=== PATIENT | female | born 1975 | race Caucasian/White ===

== ENCOUNTER → 2017-08-30 12:36 | Outpatient (CLI) | payer BC, SELFPAY ==
--- NOTE | 2017-08-30 12:48 | RAD_ITS ---
STUDY: X-RAY CHEST REASON FOR EXAM: Female, 41 years old. Fever, cough and chest pain for 4 days. TECHNIQUE: PA and lateral views of the chest. COMPARISON: Prior comparison studies are not available for review at this time. FINDINGS: The lungs are clear and expanded. There is no demonstrated pleural abnormality. Normal size heart. Normal mediastinum and foreign. Normal visualized pulmonary arteries. Normal visualized aortic arch and descending thoracic aorta. Normal visualized thoracic spine. Normal visualized ribs, clavicles, and shoulders. There is no demonstrated abnormality of the visualized soft tissue structures of the upper abdomen. RAD/Chest PA and Lateral IMPRESSION: Normal x-ray examination of the chest. Electronically Signed: Crow Mcdonald MD at 13:31 EST Tel , Service support ,
== END ==
PROVIDERS: Family Provider Internal Medicine; PCP Internal Medicine; Visit Provider Physician Assistant Surgical
DX: R09.89 Other specified symptoms and signs involving the circulatory and respiratory systems (principal)
CPT/HCPCS: 71046

== ENCOUNTER → 2017-09-09 11:53 | Outpatient (CLI) | payer BC, SELFPAY ==
--- NOTE | 2017-09-09 11:58 | HPBI_ITS ---
MAMMOGRAPHY - BILATERAL SCREENING REASON FOR EXAM: Female, 41 years old. Routine annual screening examination. Occasional left breast tenderness. PERTINENT HISTORY: Sister with breast cancer. Grandmother with breast cancer TECHNIQUE: Digital bilateral breast zhang (3D mammographic acquisition) in the CC and MLO projections. 2-D mediolateral oblique (MLO) and craniocaudad (CC) views of both breasts were obtained. CAD: Full Field Digital Mammography with Computer Added Detection was performed. COMPARISON: Comparison is made with prior abdomen examination dated August 22, 2016. FINDINGS: Breast Composition: The breasts are heterogeneously dense, which may obscure small masses. There are no dominant masses or suspicious calcifications. No other significant abnormalities are identified. HPBI/SCREENING MAMM (CAD), BILAT IMPRESSION: Stable bilateral screening mammogram. Yearly follow-up mammogram recommended. (A) ASSESSMENT CATEGORY: BIRADS Category 1: Negative. A letter regarding these results will be sent to the patient by the facility within 30 days. Approximately 10% of breast cancers are not detected by mammography. A normal mammogram should not delay biopsy of a clinically suspicious abnormality. [id number] Electronically Signed: Guerrero Hernandez MD at 12:36 EST Tel [phone], Service support ,
== END ==
PROVIDERS: Family Provider Internal Medicine; PCP Internal Medicine; Visit Provider Nurse Practitioner Women's Health
DX: Z12.31 Encounter for screening mammogram for malignant neoplasm of breast (principal)
CPT/HCPCS: 77063; 77067

== ENCOUNTER → 2018-05-11 15:40 | Outpatient (CLI) | payer OTHER, SELFPAY ==
[2018-05-11 17:48] LABS: HIV - WCH Non-Reactive (Nonreactive)
[2018-05-11 21:56] LABS: Chlamydia Trachomatis by PCR Negative (Negative); Neisserai gonorrhoeae by PCR Negative (Negative); Probe Check PASS; Sample Adequacy Control PASS; Specimen Processing Control PASS
[2018-05-14 17:34] LABS: HCV Quant. RNA PCR HCV Not Detected IU/mL (.)
[2018-05-15 04:13] LABS: Rapid Plasmin Reagin (RPR) NONREACTIVE (NONREACTIVE)
[2018-05-15 15:18] LABS: HSV 2 IgG 0.93 index (0.00-0.90)
[2018-05-15 16:32] LABS: HPV APTIMA, High Risk Negative (Negative)
== END ==
LOC: LAB 05-12 08:26 → LABSPEC 05-12 08:28
PROVIDERS: Family Provider Internal Medicine; PCP Internal Medicine; Referring Provider Nurse Practitioner Women's Health; Visit Provider Nurse Practitioner Women's Health
DX: Z12.4 Encounter for screening for malignant neoplasm of cervix (principal); Z11.3 Encounter for screening for infections with a predominantly sexual mode of transmission
CPT/HCPCS: 36415; 86592; 86695; 86696; 86703; 87491; 87522; 87591; 87624; 88175; G0145

== ENCOUNTER 2018-08-08 14:10 | Observation (INO) | payer OTHER, SELFPAY ==
[2018-08-08] VITALS (14 sets, daily range): BP systolic 95–147; BP diastolic 34–79; PULSE 51–99; RESP 14–18; TEMP 36.6–37; O2SAT 97–100; BMI 24.1; BMI 23.1
--- NOTE | 2018-08-08 14:18 | RAD_ITS ---
STUDY: X-RAY CHEST REASON FOR EXAM: Female, 42 years old. Left-sided chest pain. TECHNIQUE: Single AP portable view of the chest. COMPARISON: 08/30/2017. FINDINGS: The lungs are clear and expanded. There is no demonstrated pleural abnormality. Normal size heart. Normal mediastinum and foreign. Normal visualized pulmonary arteries. Normal visualized aortic arch and descending thoracic aorta. Normal visualized thoracic spine. Normal visualized ribs, clavicles, and shoulders. There is no demonstrated abnormality of the visualized soft tissue structures of the upper abdomen. RAD/Chest 1 View IMPRESSION: No active pulmonary disease. Electronically Signed: Crow Mcdonald MD at 14:51 EST Tel , Service support ,
--- NOTE | 2018-08-08 14:18 | CT_ITS ---
STUDY: CT BRAIN WITHOUT CONTRAST REASON FOR EXAM: Female, 42 years old. Left-sided numbness and tingling and pain. RADIATION DOSAGE (If Supplied By Facility): CTDIvol = ( 44.99 ) mGy, DLP = ( 745.49 ) mGycm TECHNIQUE: Transaxial CT imaging of the brain was performed without administration of intravenous contrast material. Coronal and sagittal reconstructions were performed. Individualized dose optimization techniques were used for this CT. COMPARISON: None. FINDINGS: Normal soft tissue structures. Right sided craniotomy defect. Focal atrophy and encephalomalacia in the right temporal lobe from remote injury. Normal white matter tracts of the cerebral hemispheres. Normal basal ganglia and thalami. Normal brainstem. Normal cerebellum. There is no intracranial hemorrhage. There are no findings of an acute ischemic infarction. Normal visualized paranasal sinuses. CT/Brain/Head without Contrast IMPRESSION: 1. No CT evidence of intracranial bleeding, acute ischemic infarct or acute intracranial abnormality. 2. Focal atrophy in the right temporal lobe underneath the craniotomy defect. Electronically Signed: Vadim Acosta MD at 15:50 EST , Service support ,
--- NOTE | 2018-08-08 14:18 | EKG12_ITS ---
Test Reason : CP Blood Pressure : / mmHG Vent. Rate : 099 BPM Atrial Rate : 099 BPM P-R Int : 152 ms QRS Dur : 096 ms QT Int : 332 ms P-R-T Axes : 080 060 003 degrees QTc Int : 426 ms Poor data quality, interpretation may be adversely affected Normal sinus rhythm with sinus arrhythmia Normal ECG Confirmed by LUZ ELENA THAO, KATHE ([id number]), writer editor TRES SAAVEDRA ([id number]) on 08/10/2018 8:58:57 AM Referred By: MARK Confirmed By:KATHE LAGUNA MD
[2018-08-08 14:29] LABS: Absolute Lymphocyte Count 3.02 X10^3/ul (0.83-4.51); Absolute Neutrophil Count 2.5 X10^3/uL (2.0-7.7); Basophil# 0.06 X10^3/uL; Eosinophil# 0.11 X10^3/uL; Eosinophils% 1.8 % (0-5); Hematocrit 40.8 % (37-47); Hemoglobin 12.9 g/dl (12.0-15.0); Lymphocyte # 3.02 X10^3/ul (4.0); Lymphocyte % 48.9 % (19-41); Mean Corp Hgb Conc 31.6 g/gl (32-36); Mean Corpuscular Hgb 30.1 pg (27.0-32.0); Mean Corpuscular Volume 95.1 fL (81-99); Mean Platelet Vol. 11.7 fl (6.2-12.0); Monocyte# 0.44 X10^3/uL; Monocyte% 7.1 % (0-10); Neutrophil # 2.52 X10^3/uL (2.7-7.7); Neutrophil % 40.9 % (47-70); Platelet Count 190 K/mm3 (150-450); RBC Distribution Width CV 12.5 % (11.6-14.6); RBC Distribution Width SD 43.1 fl (35.1-43.9); Red Blood Count 4.29 M/mm3 (4.2-5.4); White Blood Count 6.2 K/mm3 (4.4-11.0)
[2018-08-08 14:30] LABS: POSITIVE COUNT NO; POSITIVE DIFFERENTIAL NO; POSITIVE MORPHOLOGY NO
[2018-08-08] MEDS: Ondansetron 4 MG/2 ML Vial IV ×2 (14:34→16:43)
[2018-08-08] MEDS: Morphine 4 MG/ML Syringe IV ×2 (14:34→16:43)
[2018-08-08] MEDS: 0.9% Normal Saline 1,000 ML 100 ML IV (14:34)
[2018-08-08 14:39] LABS: Partial Thromboplast Time 29.2 Seconds (24.1-36.2); Prothrombin Time (Protime)PT. 13.4 SECONDS (11.7-14.9)
[2018-08-08 14:46] LABS: Bedside Glucose 111 mg/dL (70-110)
[2018-08-08 14:46] LABS: Anion Gap 7 (5-15); BUN 8 mg/dL (7-18); BUN/Creat Ratio 9.4 RATIO (10-20); Chloride 108 mmol/L (98-107); Creatinine, Serum 0.86 mg/dL (0.55-1.02); EST Glomerular Filtration Rate 77 mL/min (>60); Est Glom Filt Rate - Afr Amer 93 mL/min (>60); Estimated Creatinine Clearance 85.09 ml/min; Glucose 119 mg/dL (74-106); Potassium 3.4 mmol/L (3.5-5.1); Sodium Level 141 mmol/L (136-145)
--- NOTE | 2018-08-08 15:17 | CT_ITS ---
STUDY: CTA NECK WITH CONTRAST REASON FOR EXAM: Female, 42 years old. RADIATION DOSAGE (If Supplied By Facility): CTDIvol = ( 20.79 ) mGy, DLP = ( 641.8 ) mGycm TECHNIQUE: CT angiography with multi-detector data acquisition was performed from the aortic arch to the skull base following intravenous administration of 100 ml of Isovue 370 contrast. MIP images were reconstructed from the axial data set. Post-processing of the angiographic images was performed, with multiplanar reformation and 3D reconstruction. Individualized dose optimization techniques were used for this CT. COMPARISON: None. FINDINGS: AORTIC ARCH: Normal visualized aortic arch. Normal origins of the brachiocephalic, left common carotid, and left subclavian arteries. RIGHT CAROTID ARTERIES: Normal right common carotid artery (CCA). Normal right common carotid bulb. Normal origin of the right internal carotid (ICA) artery without a hemodynamically significant stenosis. Normal visualized cervical portion of the right internal carotid artery. Normal origin of the right external carotid artery (ECA). LEFT CAROTID ARTERIES: Normal left common carotid artery (CCA). Normal left common carotid bulb. Normal origin of the left internal carotid (ICA) artery without a hemodynamically significant stenosis. Normal visualized cervical portion of the left internal carotid artery. Normal origin of the left external carotid artery (ECA). VERTEBRAL ARTERIES: Normal bilateral vertebral arteries. CT/CTA Neck W/WO Contrast IMPRESSION: Normal bilateral cervical carotid and vertebral arteries. Electronically Signed: Aaron Diaz MD at 16:07 EST , Service support ,
--- NOTE | 2018-08-08 15:17 | CT_ITS ---
STUDY: CTA OF THE BRAIN REASON FOR EXAM: Female, 42 years old. RADIATION DOSAGE (If Supplied By Facility): CTDIvol = ( 20.79 ) mGy, DLP = ( 641.8 ) mGycm TECHNIQUE: CT angiography was performed with a multi-detector CT scanner. Data acquisition was obtained from the skull base through the vertex following intravenous administration of ml of . MIP images were reconstructed from the axial data set. Post-processing of the angiographic images was performed, with multiplanar reformation and 3D reconstruction. Individualized dose optimization techniques were used for this CT. COMPARISON: None. FINDINGS: There has been a previous right temporal craniotomy. It is free of complication. Normal bilateral petrous carotid arteries. Normal right cavernous carotid artery with a normal supraclinoid bifurcation. Normal left cavernous carotid artery with a normal supraclinoid bifurcation. Normal right A1 segments of the anterior cerebral artery. Normal left A1 segments of the anterior cerebral artery. Normal intact anterior communicating artery (ACOM). Normal bilateral A2 segments of the anterior cerebral arteries. Normal right M1 and M2 segments of the middle cerebral arteries, with a normal M1 bifurcation. Normal left M1 and M2 segments of the middle cerebral arteries, with a normal M1 bifurcation. Normal right posterior communicating artery (PCOM). Normal left posterior communicating artery (PCOM). Normal bilateral vertebral arteries. Normal basilar artery with a normal basilar bifurcation. The visualized bilateral superior cerebellar (SCA) arteries are normal. Normal bilateral P1, P2 and visualized P3 segments of the posterior cerebral arteries. There is no demonstrated aneurysm of the [place] of [place]. Postsurgical changes noted in the right temporal lobe. CT/CTA Head W/WO Contrast IMPRESSION: Normal [place] of [place] without a demonstrated aneurysm or hemodynamically significant stenosis. Postoperative changes in the right temporal lobe, no acute intracranial findings Electronically Signed: Aaron Diaz MD at 16:04 EST , Service support ,
--- NOTE | 2018-08-08 15:31 | ED.DCSUM_ITS ---
- ER Visit Summary Date of Service: 08/08/18 Chief Complaint: Weakness, tingling, chest pain History of Present Illness: The patient is a 42 F with a history of TBI and chronic left-sided facial paralysis. Patient states she was driving to work today and believe she left home around 1:45 PM. She noted a tingling sensation to the left frontal portion of her head. She then noted some numbness to her left arm and leg. She did not note particular weakness or difficulty moving them. She then developed some chest tightness. Patient denies personal history of heart problems. She does state her father has heart history. She does have occasional migraines from her prior TBI. Physical Examination: Vital signs unremarkable. Patient sitting upright in bed. She is in no acute distress. Head neck examination reveals chronic left sided facial droop. Heart is regular rate and rhythm. Lungs sounds are clear. Abdomen is soft and nontender. Neuro exam reveals an NIH score of 5. 2 points of this are for her chronic left facial paralysis. She receives one point for left arm drift, 1.4 left leg drift, and one point for decreased sensation to light touch on the left. Test Results: EKG is sinus at 99 with no acute ischemia. Portable chest x-ray shows no acute disease. CBC is normal. Chemistry studies reveal potassium 3.4. Coags normal. Troponin is less than 0.015. Noncontrast head CT reveals no evidence of acute bleed, ischemic infarct, or acute ab normality. Atrophy is noted to the right temporal lobe. CTA of the head and neck are also obtained. Postop changes noted to the right adventist, otherwise unremarkable study. Emergency Department Course and Treatment: Patient received morphine, Zofran, and IV fluids. On multiple repeat checks she continues to have mild left-sided weakness. For example, on arm testing she will have good strength with push and pull motions, but she will have left arm drift noted when asked to hold both arms together. She is able to hold her left leg up with coaching, but it does tend to fall without frequent reminders. On repeat examination patient still reports chest tightness. She will be admitted for further workup and testing. Treatment Plan: [] Disposition: Admit Impression: 1. Chest pain 2. Left-sided weakness This note was generated with [employer] software. It may contain incorrect words, spelling, and punctuation that were not noted in review of the chart prior to signing ED Disposition - Plan for ED Patient: Chief Complaint: Chest Pain Referrals: Care Physician,No Primary [Primary Care Provider] -
[2018-08-08] MEDS: Aspirin 325 MG Tablet PO (16:44)
--- NOTE | 2018-08-08 16:49 | HP.PCM_ITS ---
Problem List (1) Family history of colon cancer in father Status: Chronic Comment: unsure of age of diagnosis (2) Family history of breast cancer in sister Status: Chronic Comment: Age 37:double mastectomy, radiation, chemo (3) Segmental and somatic dysfunction of cervical region Status: Chronic (4) Segmental and somatic dysfunction of thoracic region Status: Chronic (5) Segmental and somatic dysfunction of lumbar region Status: Chronic (6) Segmental and somatic dysfunction of pelvic region Status: Chronic History of Present Illness Date of Admission: 08/08/18 Chief Complaint: Chest pain, left sided numbness/tingling and weakness The patient is a 42 year old F who presents emergency room due to chest pain, left-sided numbness, tingling, weakness. Patient states she was driving her car when she developed a tingling and cold sensation on the left side of her scalp which she then states also went down to her left arm and left leg. She states her left arm and left leg became weak and continued to to feel numb. She reports after the initial onset of this, she developed chest pressure in the center of her chest which radiated to the left side of her chest and her back. She describes associated shortness of breath. She denies dizziness, nausea, diaphoresis. She states she had an episode of chest pain similar to this 2 weeks ago and did not seek medical attention at that time. She reports her chest pain resolved on its own. Patient states when she came into the emergency room, she felt like she was dragging her left leg. Chest pain resolved after receiving morphine in the emergency room. She continues to have left-sided weakness and numbness. She denies vision changes, slurred speech, headache. She has a past medical history of TBI with chronic left-sided facial paralysis. She does report a history of infrequent migraines following her TBI. Past Medical History Past Medical History (Chronic Problems): Chronic Problems (Last Reviewed 05/11/18 @ 14:59 by Rosita Ocasio) Family history of colon cancer in father (Chronic) unsure of age of diagnosis Family history of breast cancer in sister (Chronic) Age 37:double mastectomy, radiation, chemo Segmental and somatic dysfunction of cervical region (Chronic) Segmental and somatic dysfunction of thoracic region (Chronic) Segmental and somatic dysfunction of lumbar region (Chronic) Segmental and somatic dysfunction of pelvic region (Chronic) Medical History: Medical History (Last Reviewed 05/11/18 @ 14:59 by Rosita Ocasio) History of depression Z86.59 Allergies doxycycline Adverse Reaction (Verified 08/08/18 14:18) Vomiting Home Medications: Ambulatory Orders Medication Instructions Recorded NK 08/08/18 Surgical History: Surgical History (Last Reviewed 08/08/18 @ 16:49 by Afia Perrin NP-Jesús) H/O eye surgery Z98.890 H/O knee surgery Z98.890 History of LAVH Z90.710 History of ankle surgery Z98.890 History of ear surgery Z98.890 History of laparoscopy Z98.890 Hx laparoscopic cholecystectomy Z90.49 Surgical History: cholecystectomy, hysterectomy, tonsillectomy, - - Right ankle fracture with pins and fusion, left femur fracture with babar, brain surgery following TBI, right knee partial kneecap removal, left eye surgery. Psychiatric History: No pertinent psych hx CHIROPRACTIC DOCTOR History: No pertinent CHIROPRACTIC DOCTOR history Lives: Spouse/ Significant Other Smoking Status: Current every day smoker Tobacco Use: Cigarettes - 0.5 PPD Alcohol: None Drugs: None - *Family History Maternal Family History: Family History (Last Reviewed 08/08/18 @ 16:53 by Afia Perrin NP-C) Father Heart disease Colon cancer Grandmother Breast cancer History Items: High Cholesterol, Hypertension Paternal Family History: Family History (Last Reviewed 08/08/18 @ 16:53 by Afia Perrin NP-Jesús) Father Heart disease Colon cancer Grandmother Breast cancer Review of Systems Constitutional: Denies: Chills, Fever, Weight Change Eyes: Denies: Blurred vision, Double vision HEENT: Denies: Head Aches, Sinus Congestion, Sinus Drainage Cardiovascular: Reports: Chest Pressure, Chest Tightness, Palpitations. Denies: Edema, Light Headedness, Syncope Respiratory: Reports: Shortness of Breath - With episode of chest pain, resolved. Denies: Cough, Shortness of breath at rest, Sputum production Gastrointestinal: Denies: Abdominal Pain, Nausea, Vomiting Genitourinary: Denies: Dysuria Musculoskeletal: Denies: Joint Pain, Joint Tenderness Skin: Denies: Rash, Wounds Neurological: Reports: - - Left-sided numbness, tingling, weakness Psychiatric: Denies: Anxiety, Depression, Homicidal Ideations, Suicidal Ideations Hematologic/ Lymphatic: Denies: Easy Bruising, Easy Bleeding VTE Information - Inpt Only VTE Present on Admission: No VTE Mechan Device Prophylaxis: None VTE Pharm Prophylaxis ordered?: Yes - Physical Exam General: Alert, Oriented x3, Cooperative HEENT: Atraumatic, PERRLA, EOMI, Normocephalic Oral: Moist Mucosa Neck: Supple, No JVD, Negative Carotid Bruits Lungs: Clear to auscultation, Normal air movement Cardiovascular: Regular rate, Regular Rhythm, Normal S1, Normal S2, No murmurs Abdomen: Bowel Sounds Present, Soft, Non Tender, Non-Distended Extremities: No clubbing, No cyanosis, No edema, Capillary Refill Less than 3 Seconds Skin: No rashes, No breakdown Musculoskeletal: No Tenderness to Palpation of Joints or Extremities Neurological: - - Chronic left-sided facial droop, left upper extremity/left lower extremity with 4/5 strength. Psych/Mental Status: Normal Affect, Appropriate Vital Signs Temp Pulse Resp BP Pulse Ox 98.2 F 78 16 116/66 100 08/08/18 14:18 08/08/18 15:18 08/08/18 15:18 08/08/18 15:18 08/08/18 15:18 Oxygen Delivery Method Room Air Weight: 158 lb 15.253 oz Body Mass Index (BMI) 24.1 Finger Stick Blood Glucose 111 Laboratory Tests Past 24 Hrs 08/08/18 08/08/18 08/08/18 14:19 14:19 14:19 WBC 6.2 RBC 4.29 Hgb 12.9 Hct 40.8 MCV 95.1 MCH 30.1 MCHC 31.6 L RDW 12.5 RDW Differential 43.1 Plt Count 190 MPV 11.7 Immature Gran % (Auto) 0.300 Neut % (Auto) 40.9 L Lymph % (Auto) 48.9 H Sandoval % (Auto) 7.1 Eos % (Auto) 1.8 Baso % (Auto) 1.0 Absolute Neuts (auto) 2.5 Absolute Lymphs (auto) 3.02 Total Counted Not Reportable PT 13.4 INR 1.0 APTT 29.2 Sodium 141 Potassium 3.4 L Chloride 108 H Carbon Dioxide 26.0 Anion Gap 7 BUN 8 Creatinine 0.86 Estim Creat Clear Calc 85.09 Est GFR (MDRD) Af Amer 93 Est GFR (MDRD) Non-Af 77 BUN/Creatinine Ratio 9.4 L Glucose 119 H Calcium 9.0 Troponin I < 0.015 POC Glucose 08/08/18 14:40 POC Glucose 111 H Assessment/Plan 1. Chest pressure/pain- suspected due to dislocated rib which was adjusted in ER by hospitalist. Monitor telemetry overnight. Cycle enzymes. Repeat EKG in morning. Patient currently pain free. 2. Left sided numbness/tingling/weakness, R/O CVA- brain CT with focal atrophy in the right temporal lobe underneath the craniotomy. Neck CTA with normal cervical and vertebral arteries. Obtain MRI brain in morning. Lipid panel in a.m. PT/OT/ST. Aspirin, statin. 3. Tobacco dependence- encouraged smoking cessation. 4. History of TBI with chronic left sided facial paralysis DVT prophylaxis- SCDs This patient was seen by RON Bravo under the supervision of Dr. Jane.
[2018-08-08] MEDS: Ketorolac 30 MG/ML Syringe IV (17:08)
[2018-08-08] MEDS: tiZANidine HCl 2 MG Tablet 4 MG PO (17:21)
--- NOTE | 2018-08-08 17:32 | EKG12_ITS ---
Test Reason : AM EKG Blood Pressure : / mmHG Vent. Rate : 047 BPM Atrial Rate : 047 BPM P-R Int : 148 ms QRS Dur : 092 ms QT Int : 436 ms P-R-T Axes : 024 061 044 degrees QTc Int : 385 ms Sinus bradycardia with sinus arrhythmia Otherwise normal ECG When compared with ECG of 08-AUG-2018 17:42, MANUAL COMPARISON REQUIRED, DATA IS UNCONFIRMED Confirmed by LUZ ELENA THAO, KATHE ([id number]), scientific editor TRES SAAVEDRA ([id number]) on 08/11/2018 1:14:29 PM Referred By: DIANA Confirmed By:KATHE LAGUNA MD
[2018-08-08] MEDS: Mag Hydrox/Al Hydrox/Simeth 30 ML UDC 15 ML PO (19:53)
[2018-08-08] MEDS: Morphine 2 MG/ML Syringe IV (20:38)
[2018-08-08] MEDS: Zolpidem Tartrate 5 MG Tablet PO (20:38)
[2018-08-08] MEDS: Atorvastatin Calcium 80 MG Tablet PO (20:38)
[2018-08-08] MEDS: Ketorolac 15 MG/ML Vial IV (23:39)
[2018-08-08] MEDS: 0.9% NaCl Peripheral Flush Adult/Peds IV (23:39)
[2018-08-09] VITALS (7 sets, daily range): BP systolic 91–102; BP diastolic 50–54; PULSE 42–69; RESP 14–16; TEMP 36.5–36.8; O2SAT 98–100; BMI 23.1
[2018-08-09] MEDS: Ketorolac 15 MG/ML Vial IV ×2 (05:42→11:41)
[2018-08-09] MEDS: 0.9% NaCl Peripheral Flush Adult/Peds IV ×2 (05:42→11:44)
--- NOTE | 2018-08-09 05:55 | EKG12_ITS ---
Test Reason : CP Blood Pressure : / mmHG Vent. Rate : 043 BPM Atrial Rate : 043 BPM P-R Int : 148 ms QRS Dur : 096 ms QT Int : 434 ms P-R-T Axes : 039 059 042 degrees QTc Int : 366 ms Marked sinus bradycardia Abnormal ECG When compared with ECG of 08-AUG-2018 14:14, MANUAL COMPARISON REQUIRED, DATA IS UNCONFIRMED Confirmed by LUZ ELENA THAO, KATHE ([id number]), senior editor TRES SAAVEDRA ([id number]) on 08/11/2018 1:15:02 PM Referred By: DIANA Confirmed By:KATHE LAGUNA MD
[2018-08-09 06:58] LABS: Anion Gap 6 (5-15); BUN 10 mg/dL (7-18); BUN/Creat Ratio 12.7 RATIO (10-20); Calcium,Total 8.7 mg/dL (8.5-10.1); Chloride 113 mmol/L (98-107); Cholesterol 137 mg/dL (200); Creatinine, Serum 0.79 mg/dL (0.55-1.02); EST Glomerular Filtration Rate 84 mL/min (>60); Est Glom Filt Rate - Afr Amer 102 mL/min (>60); Estimated Creatinine Clearance 92.63 ml/min; Glucose 94 mg/dL (74-106); High Density Lipoprotein 46 mg/dL; Potassium 4.5 mmol/L (3.5-5.1); Sodium Level 144 mmol/L (136-145); Triglycerides 58 mg/dL; Very Low Density Lipoprotein 12 mg/dL (5-40)
[2018-08-09] MEDS: Aspirin 81 MG TAB.CHEW PO (08:43)
--- NOTE | 2018-08-09 09:38 | MRI_ITS ---
STUDY: MRI BRAIN WITHOUT CONTRAST REASON FOR EXAM: Female, 42 years old. Left-sided weakness. History of right intracranial hematoma TECHNIQUE: Standardized multiplanar fat and water weighted pulse sequences were obtained. COMPARISON: August 08, 2018 CT brain FINDINGS: No evidence of shift of midline structures, mass effect or compression of ventricles noted. No acute intra-axial or extra-axial hemorrhage is seen. No abnormal intracranial fluid collections identified. Right-sided temporal craniotomy changes with encephalomalacia and gliosis in the right temporal lobes seen. Minimal scattered foci of T2/FLAIR hyperintensity right occipital region involving the periventricular white matter is seen which are nonspecific in imaging appearance. No definite evidence for restricted diffusion. No evidence for cerebellar tonsillar herniation. Corpus callosum, pituitary stalk and optic chiasm appear unremarkable. Partial opacification of the left-sided mastoid air cells which can be seen in the setting of mastoid effusion or inflammatory changes mild mucosal thickening of the ethmoid air cells. Mucosal thickening of the left maxillary sinus. IMPRESSION: Status post right-sided temporal craniotomy changes with encephalomalacia and gliosis in the right temporal lobe. No evidence for acute or subacute ischemic insult. No evidence for intracranial mass or acute hemorrhage. Partial opacification of the left-sided mastoid air cells may relate with mastoid effusion or inflammatory changes. Electronically Signed: Ehsan Monroy, at 11:35 EST Tel , Service support , MRI/Brain without Contrast
[2018-08-09] MEDS: LORazepam 2 MG/ML Syringe 1 MG IV (10:12)
--- NOTE | 2018-08-09 11:54 | DCINST_ITS ---
You will use the following diet at home:: No restrictions Discharge Activity: Return to Normal Activity Call your doctor if you observe: Numbness or Tingling, Shortness of breath, Dizziness, Fainting spells, Chest pain Additional Instructions: Recommend stress test as outpatient which can be ordered by primary care physician. Allergies/Adverse Reactions: Allergies doxycycline Adverse Reaction (Verified 08/08/18 14:18) Vomiting Medications to take at Discharge NK 08/08/18 Primary Care Physician: Care Physician,No Primary [Primary Care Provider] - Please follow up with your Primary Care Physician in: 1 Week Test Results: Test results from this visit will be discussed in further detail at your follow- up appointment, if applicable. Proposed Discharge Date: 08/09/18
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
--- OUTSIDE RECORDS SUMMARY | 2018-10-12 10:28 | XMS RPT_ITS ---
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 Physician, No Primary Status: ADM PABLO ADDENDUM by RON Perrin on 08/09/18 at 1203 No PCP: Follow up with Dr. Waddell in 2-3 days. Plan for stress test later this week. You can reach Dr. Waddell at [phone]. 08/09/18 1203 Date Afia Perrin cc: No Primary Care Physician * Signed You will use the following diet at home:: No restrictions Discharge Activity: Return to Normal Activity Call your doctor if you observe: Numbness or Tingling, Shortness of breath, Dizziness, Fainting spells, Chest pain Additional Instructions: Recommend stress test as outpatient which can be ordered by primary care physician. Allergies/Adverse Reactions: Allergies doxycycline Adverse Reaction (Verified 08/08/18 14:18) Vomiting Medications to take at Discharge NK 08/08/18 Primary Care Physician: Care Physician,No Primary [Primary Care Provider] - Please follow up with your Primary Care Physician in: 1 Week Test Results: Test results from this visit will be discussed in further detail at your follow-up appointment, if applicable. Proposed Discharge Date: 08/09/18 08/09/18 1154 <Electronically signed by Afia VELASQUEZ> Date Afia Perrin LAUNDRY PRICING CLERK-C CC: No Primary Care Physician Signed BASIC METABOLIC Collected: 08/09/2018 Status: F Source: [place] PROFILE ([facility]) 6:[address] [facility] REPOSITORY TYPE CODE TESTS RESULT OUT OF RANGE REFERENCE UNITS LAB L501.0100 74-106 mg/dL Normal GLU 94 Result Comment: Please note revised GLUCOSE reference range effective 2017. LAB L501.1000 7-18 mg/dL Normal BUN 10 LAB L501.1100 0.55-1.02 mg/dL Normal CREAT,SERUM 0.79 Result Comment: The validity of the calculated GFR AND GFRAA in patients over 70 years has not been determined. Clinical correlation is essential. LAB L501.1110 >60 mL/min Normal EST GFR 84 Result Comment: Non- GFR Calc LAB L501.1115 >60 mL/min Normal EST GFR - AA 102 Result Comment: GFR Calc LAB L501.1255 ml/min Normal Estimated CRCL 92.63 LAB L501.1300 10-20 RATIO Normal BUN/CRE 12.7 LAB L501.2200 8.5-10 mg/dL Normal .1 CA 8.7 LAB L501.5300 136-14 mmol/L Normal 5 NA 144 LAB L501.5600 3.5-5. mmol/L Normal 1 K 4.5 LAB L501.5900 98-107 mmol/L High CL 113 LAB L501.6100 21.0-3 mmol/L Normal 2.0 CO2 25.0 LAB L501.6200 5-15 Normal GAP 6 Performed By: #### L500.2500, L500.4100 #### [facility] [place], [address] LIPID PROFILE Collected: 08/09/2018 Status: F Source: [place] 6:[address] [facility] REPOSITORY TYPE CODE TESTS RESULT OUT OF RANGE REFERENCE UNITS LAB L501.4900 200 mg/dL Normal CHOL 137 Result Comment: <200 mg/dL Desirable 200-240 mg/dL Borderline >240 mg/dL High Risk LAB L501.5000 mg/dL Normal TRIG 58 Result Comment: The drugs N-Acetylcysteine and Metamizole may falsely depress this assay. Serum Triglycerides Reference Interval Normal <150 mg/dL Borderline high 150 - 199 mg/dL High 200 - 499 mg/dL Very High > or = 500 mg/dL LAB L501.6400 mg/dL Normal HDL 46 Result Comment: The drugs N-Acetylcysteine and Metamizole may falsely depress this assay. Reference Range HDL <40 mg/dL Low HDL Cholesterol HDL >or= 60 mg/dL High HDL Cholesterol LAB L501.6500 0-130 mg/dL Normal LDL 79 LAB L501.6600 5-40 mg/dL Normal VLDL 12 Performed By: #### L500.2500, L500.4100 #### [facility] [address] [facility] [place], [address] TROPONIN-I Collected: 08/08/2018 Status: F Source: [place] 10:[address] [facility] REPOSITORY Order Comment: 'TROP' Serial specimen #1, #2 or #3: 3 TYPE CODE TESTS RESULT OUT OF RANGE REFERENCE UNITS LAB L501.4010 <0.045 ng/mL Normal < 0.015 TROPONIN-I Result Comment: TROPONIN-I EXPECTED VALUES <0.045 Negative 0.045 - 0.590 Consistent with Cardiac Damage > OR = 0.600 Critical Value Not every elevated troponin is indicative of MT. These values should be used with clinical judgement in examining the patient's clinical picture for diagnosis. To establish a diagnosis of MT versus myocardial injury, there must be a demonstrated rise and/or fall in the troponin values, in addition to ischemic symptoms, EKG changes, new regional wall motion abnormality, and/or angiographical evidence. PLEASE NOTE: REFERENCE RANGES EDITED 17 Performed By: #### L501.4010 #### [facility] [address] [facility] [place], [address] HISTORY AND PHYSICAL Observed: 08/08/2018 Status: F Source: [place] EXAM 7:[address] [facility] REPOSITORY [facility] Medical Records Department [address] [place] [id number] History and Physical 08/08/18 1642 MR#: [id number] Acct: [id number] Name: SASHA CURRY Rep #: [id number] : 1975 42 From: Afia Perrin LAUNDRY PRICING CLERKSuman PCP: Care Physician, No Primary Status: ADM PABLO Y [id number] ADDENDUM by Liz Jane on 08/08/18 at 1920 Code Visit This patient was seen in conjunction with Afia Perrin LAUNDRY PRICING CLERK. I have independently interviewed and examined the patient and reviewed pertinent historical, laboratory and other data. Please refer to history and physical note for details of this patient's presentation, findings and recommendations. I have reviewed Afia's note and concur fully with documented findings. In brief, patient is a 42YO female admitted with left scalp, left arm and left leg weakness and numbness, chest pain, epigastric pain, headache. She is a smoker. Has never had a TIA or CVA. No cardiac disease. Pt was up a lot of the night caring for her sick granddaughter and carrying her around on her left hip. The pain in the chest increases with breathing and with movement. The only focal neurologic finding on my exam is L facial droop which is chronic. Physical examination: I agree with the physical examination documented below by Afia Perrin with the exception that I find 5/5 strength throughout. she is irritable and seems angry. Did not sleep last night Assessment: 1. Atypical chest pain 2. Left scalp, arm and leg numbness and weakness -resolved by the time I had seen her 3. Nicotine addiction I have discussed my assessment with Afia and orders have been written. OBSV E AND M: [id number] Initial observation care L3 08/08/181919 <Electronically signed by Robert Jane DO> Date Robert Jane DO cc: RON Perrin; No Primary Care Physician; Liz Jane * Signed Problem List (1) Family history of colon cancer in father Status: Chronic Comment: unsure of age of diagnosis (2) Family history of breast cancer in sister Status: Chronic Comment: Age 37:double mastectomy, radiation, chemo (3) Segmental and somatic dysfunction of cervical region Status: Chronic (4) Segmental and somatic dysfunction of thoracic region Status: Chronic (5) Segmental and somatic dysfunction of lumbar region Status: Chronic (6) Segmental and somatic dysfunction of pelvic region Status: Chronic History of Present Illness Date of Admission: 08/08/18 Chief Complaint: Chest pain, left sided numbness/tingling and weakness The patient is a 42 year old F who presents emergency room due to chest pain, left-sided numbness, tingling, weakness. Patient states she was driving her car when she developed a tingling and cold sensation on the left side of her scalp which she then states also went down to her left arm and left leg. She states her left arm and left leg became weak and continued to to feel numb. She reports after the initial onset of this, she developed chest pressure in the center of her chest which radiated to the left side of her chest and her back. She describes associated shortness of breath. She denies dizziness, nausea, diaphoresis. She states she had an episode of chest pain similar to this 2 weeks ago and did not seek medical attention at that time. She reports her chest pain resolved on its own. Patient states when she came into the emergency room, she felt like she was dragging her left leg. Chest pain resolved after receiving morphine in the emergency room. She continues to have left-sided weakness and numbness. She denies vision changes, slurred speech, headache. She has a past medical history of TBI with chronic left-sided facial paralysis. She does report a history of infrequent migraines following her TBI. Past Medical History Past Medical History (Chronic Problems): Chronic Problems (Last Reviewed 05/11/18 @ 14:59 by Rosita Ocasio) Family history of colon cancer in father (Chronic) unsure of age of diagnosis Family history of breast cancer in sister (Chronic) Age 37:double mastectomy, radiation, chemo Segmental and somatic dysfunction of cervical region (Chronic) Segmental and somatic dysfunction of thoracic region (Chronic) Segmental and somatic dysfunction of lumbar region (Chronic) Segmental and somatic dysfunction of pelvic region (Chronic) Medical History: Medical History (Last Reviewed 05/11/18 @ 14:59 by Rosita Ocasio) History of depression Z86.59 Allergies doxycycline Adverse Reaction (Verified 08/08/18 14:18) Vomiting Home Medications: Ambulatory Orders Medication Instructions Recorded NK 08/08/18 Surgical History: Surgical History (Last Reviewed 08/08/18 @ 16:49 by Afia Perrin NP-C) H/O eye surgery Z98.890 H/O knee surgery Z98.890 History of LAVH Z90.710 History of ankle surgery Z98.890 History of ear surgery Z98.890 History of laparoscopy Z98.890 Hx laparoscopic cholecystectomy Z90.49 Surgical History: cholecystectomy, hysterectomy, tonsillectomy, - - Right ankle fracture with pins and fusion, left femur fracture with babar, brain surgery following TBI, right knee partial kneecap removal, left eye surgery. Psychiatric History: No pertinent psych hx GIS TECHNICIAN History: No pertinent GIS TECHNICIAN history Lives: Spouse/ Significant Other Smoking Status: Current every day smoker Tobacco Use: Cigarettes - 0.5 PPD Alcohol: None Drugs: None - *Family History Maternal Family History: Family History (Last Reviewed 08/08/18 @ 16:53 by RON Bravo) Father Heart disease Colon cancer Grandmother Breast cancer History Items: High Cholesterol, Hypertension Paternal Family History: Family History (Last Reviewed 08/08/18 @ 16:53 by RON Bravo) Father Heart disease Colon cancer Grandmother Breast cancer Review of Systems Constitutional: Denies: Chills, Fever, Weight Change Eyes: Denies: Blurred vision, Double vision HEENT: Denies: Head Aches, Sinus Congestion, Sinus Drainage Cardiovascular: Reports: Chest Pressure, Chest Tightness, Palpitations. Denies: Edema, Light Headedness, Syncope Respiratory: Reports: Shortness of Breath - With episode of chest pain, resolved. Denies: Cough, Shortness of breath at rest, Sputum production Gastrointestinal: Denies: Abdominal Pain, Nausea, Vomiting Genitourinary: Denies: Dysuria Musculoskeletal: Denies: Joint Pain, Joint Tenderness Skin: Denies: Rash, Wounds Neurological: Reports: - - Left-sided numbness, tingling, weakness Psychiatric: Denies: Anxiety, Depression, Homicidal Ideations, Suicidal Ideations Hematologic/ Lymphatic: Denies: Easy Bruising, Easy Bleeding VTE Information - Inpt Only VTE Present on Admission: No VTE Mechan Device Prophylaxis: None VTE Pharm Prophylaxis ordered?: Yes - Physical Exam General: Alert, Oriented x3, Cooperative HEENT: Atraumatic, PERRLA, EOMI, Normocephalic Oral: Moist Mucosa Neck: Supple, No JVD, Negative Carotid Bruits Lungs: Clear to auscultation, Normal air movement Cardiovascular: Regular rate, Regular Rhythm, Normal S1, Normal S2, No murmurs Abdomen: Bowel Sounds Present, Soft, Non Tender, Non-Distended Extremities: No clubbing, No cyanosis, No edema, Capillary Refill Less than 3 Seconds Skin: No rashes, No breakdown Musculoskeletal: No Tenderness to Palpation of Joints or Extremities Neurological: - - Chronic left-sided facial droop, left upper extremity/left lower extremity with 4/5 strength. Psych/Mental Status: Normal Affect, Appropriate Vital Signs Temp Pulse Resp BP Pulse Ox 98.2 F 78 16 116/66 100 08/08/18 14:18 08/08/18 15:18 08/08/18 15:18 08/08/18 15:18 08/08/18 15:18 Oxygen Delivery Method Room Air Weight: 158 lb 15.253 oz Body Mass Index (BMI) 24.1 Finger Stick Blood Glucose 111 Laboratory Tests Past 24 Hrs POC Glucose POC Glucose 111 H Assessment/Plan 1. Chest pressure/pain- suspected due to dislocated rib which was adjusted in ER by hospitalist. Monitor telemetry overnight. Cycle enzymes. Repeat EKG in morning. Patient currently pain free. 2. Left sided numbness/tingling/weakness, R/O CVA- brain CT with focal atrophy in the right temporal lobe underneath the craniotomy. Neck CTA with normal cervical and vertebral arteries. Obtain MRI brain in morning. Lipid panel in a.m. PT/OT/ST. Aspirin, statin. 3. Tobacco dependence- encouraged smoking cessation. 4. History of TBI with chronic left sided facial paralysis DVT prophylaxis- SCDs This patient was seen by RON Bravo under the supervision of Dr. Jane. 08/08/181713 <Electronically signed by Afia NUGENTC> Date Afia VELASQUEZ 08/08/181903<Electronically signed by Robert Jane DO> Cosigner Signature: Date (if applicable) Robert Jane DO CC: RON Perrin; No Primary Care Physician; Liz Jane Signed EMERGENCY DEPARTMENT Observed: 08/08/2018 Status: F Source: [place] SUMMARY 6:[address] [facility] REPOSITORY [facility] Medical Records Department [address] [place] [address] Emergency Department Summary 08/08/18 1529 MR#: [id number] Acct: [id number] Name: SASHA CURRY Rep #: [id number] : 1975 42 From: Michelle Liu MD PCP: Care Physician, No Primary Status: ADM PABLO - ER Visit Summary Date of Service: 08/08/18 Chief Complaint: Weakness, tingling, chest pain History of Present Illness: The patient is a 42 F with a history of TBI and chronic left-sided facial paralysis. Patient states she was driving to work today and believe she left home around 1:45 PM. She noted a tingling sensation to the left frontal portion of her head. She then noted some numbness to her left arm and leg. She did not note particular weakness or difficulty moving them. She then developed some chest tightness. Patient denies personal history of heart problems. She does state her father has heart history. She does have occasional migraines from her prior TBI. Physical Examination: Vital signs unremarkable. Patient sitting upright in bed. She is in no acute distress. Head neck examination reveals chronic left sided facial droop. Heart is regular rate and rhythm. Lungs sounds are clear. Abdomen is soft and nontender. Neuro exam reveals an NIH score of 5. 2 points of this are for her chronic left facial paralysis. She receives one point for left arm drift, 1.4 left leg drift, and one point for decreased sensation to light touch on the left. Test Results: EKG is sinus at 99 with no acute ischemia. Portable chest x-ray shows no acute disease. CBC is normal. Chemistry studies reveal potassium 3.4. Coags normal. Troponin is less than 0.015. Noncontrast head CT reveals no evidence of acute bleed, ischemic infarct, or acute ab normality. Atrophy is noted to the right temporal lobe. CTA of the head and neck are also obtained. Postop changes noted to the right hoahaoism, otherwise unremarkable study. Emergency Department Course and Treatment: Patient received morphine, Zofran, and IV fluids. On multiple repeat checks she continues to have mild left- sided weakness. For example, on arm testing she will have good strength with push and pull motions, but she will have left arm drift noted when asked to hold both arms together. She is able to hold her left leg up with coaching, but it does tend to fall without frequent reminders. On repeat examination patient still reports chest tightness. She will be admitted for further workup and testing. Treatment Plan: [] Disposition: Admit Impression: 1. Chest pain 2. Left-sided weakness This note was generated with Shadow Puppetation software. It may contain incorrect words, spelling, and punctuation that were not noted in review of the chart prior to signing ED Disposition - Plan for ED Patient: Chief Complaint: Chest Pain Referrals: Care Physician,No Primary [Primary Care Provider] - What to do if you have Problems For any increased pain, shortness of breath, bleeding, nausea or vomiting, chest pain, or any unexpected problems, contact your Primary Care Provider. Call [facility] ([phone]) or report to the closest Emergency Room. Call 911 if necessary. 08/08/18 182 <Electronically signed by Michelle Liu MD> Date Michelle Liu MD Cosigner Signature (If Indicated): Date CC: No Primary Care Physician BRAIN WITHOUT Observed: 08/08/2018 Status: F Source: [place] CONTRAST 5:[address] [facility] REPOSITORY [facility] [address] [place] [address] Brain without Contrast MR#: [id number] Acct: [id number] Name: SASHA CURRY Rep #: [id number] : 1975 F 42 From: Ehsan Monroy MD PCP: Care Physician, No Primary Status: ADM PABLO Study: Brain without Contrast Date of Exam: 08/09/18 Exam# [id number] Ordering Dr: Afia Perrin STUDY: MRI BRAIN WITHOUT CONTRAST REASON FOR EXAM: Female, 42 years old. Left-sided weakness. History of right intracranial hematoma TECHNIQUE: Standardized multiplanar fat and water weighted pulse sequences were obtained. COMPARISON: August 08, 2018 CT brain FINDINGS: No evidence of shift of midline structures, mass effect or compression of ventricles noted. No acute intra-axial or extra-axial hemorrhage is seen. No abnormal intracranial fluid collections identified. Right-sided temporal craniotomy changes with encephalomalacia and gliosis in the right temporal lobes seen. Minimal scattered foci of T2/FLAIR hyperintensity right occipital region involving the periventricular white matter is seen which are nonspecific in imaging appearance. No definite evidence for restricted diffusion. No evidence for cerebellar tonsillar herniation. Corpus callosum, pituitary stalk and optic chiasm appear unremarkable. Partial opacification of the left-sided mastoid air cells which can be seen in the setting of mastoid effusion or inflammatory changes mild mucosal thickening of the ethmoid air cells. Mucosal thickening of the left maxillary sinus. IMPRESSION: Status post right-sided temporal craniotomy changes with encephalomalacia and gliosis in the right temporal lobe. No evidence for acute or subacute ischemic insult. No evidence for intracranial mass or acute hemorrhage. Partial opacification of the left-sided mastoid air cells may relate with mastoid effusion or inflammatory changes. Electronically Signed: Ehsan Monroy, at 11:35 EST Tel , Service support , MRI/Brain without Contrast CC: RON Perrin; No Primary Care Physician Video Game Repair Technician: Signed CTA HEAD W/WO Observed: 08/08/2018 Status: F Source: [place] CONTRAST 3:[address] [facility] REPOSITORY [facility] Imaging Services [facility] [place] [address] CTA Head W/WO Contrast MR#: [id number] Acct: [id number] Name: SASHA CURRY Rep #: [id number] : 1975 F 42 From: Joseph Diaz MD PCP: Care Physician, No Primary Status: REG ER Study: CTA Head W/WO Contrast Date of Exam: 08/08/18 Exam# [id number] Ordering Dr: Michelle Liu MD STUDY: CTA OF THE BRAIN REASON FOR EXAM: Female, 42 years old. RADIATION DOSAGE (If Supplied By Facility): CTDIvol = ( 20.79 ) mGy, DLP = ( 641.8 ) mGycm TECHNIQUE: CT angiography was performed with a multi-detector CT scanner. Data acquisition was obtained from the skull base through the vertex following intravenous administration of ml of . MIP images were reconstructed from the axial data set. Post-processing of the angiographic images was performed, with multiplanar reformation and 3D reconstruction. Individualized dose optimization techniques were used for this CT. COMPARISON: None. FINDINGS: There has been a previous right temporal craniotomy. It is free of complication. Normal bilateral petrous carotid arteries. Normal right cavernous carotid artery with a normal supraclinoid bifurcation. Normal left cavernous carotid artery with a normal supraclinoid bifurcation. Normal right A1 segments of the anterior cerebral artery. Normal left A1 segments of the anterior cerebral artery. Normal intact anterior communicating artery (ACOM). Normal bilateral A2 segments of the anterior cerebral arteries. Normal right M1 and M2 segments of the middle cerebral arteries, with a normal M1 bifurcation. Normal left M1 and M2 segments of the middle cerebral arteries, with a normal M1 bifurcation. Normal right posterior communicating artery (PCOM). Normal left posterior communicating artery (PCOM). Normal bilateral vertebral arteries. Normal basilar artery with a normal basilar bifurcation. The visualized bilateral superior cerebellar (SCA) arteries are normal. Normal bilateral P1, P2 and visualized P3 segments of the posterior cerebral arteries. There is no demonstrated aneurysm of the jackson of [place]. Postsurgical changes noted in the right temporal lobe. CT/CTA Head W/WO Contrast IMPRESSION: Normal jackson of [place] without a demonstrated aneurysm or hemodynamically significant stenosis. Postoperative changes in the right temporal lobe, no acute intracranial findings Electronically Signed: Aaron Diaz MD at 16:04 EST , Service support , CC: No Primary Care Physician; Michelle Liu MD Video Game Repair Technician: Signed CTA NECK W/WO Observed: 08/08/2018 Status: F Source: [place] CONTRAST 3:[address] [facility] REPOSITORY [facility] [address] [place] [address] CTA Neck W/WO Contrast MR#: [id number] Acct: [id number] Name: SASHA CURRY Rep #: [id number] : 1975 F 42 From: Joseph Diaz MD PCP: Care Physician, No Primary Status: REG ER Study: CTA Neck W/WO Contrast Date of Exam: 08/08/18 Exam# [id number] Ordering Dr: Michelle Liu MD STUDY: CTA NECK WITH CONTRAST REASON FOR EXAM: Female, 42 years old. RADIATION DOSAGE (If Supplied By Facility): CTDIvol = ( 20.79 ) mGy, DLP = ( 641.8 ) mGycm TECHNIQUE: CT angiography with multi-detector data acquisition was performed from the aortic arch to the skull base following intravenous administration of 100 ml of Isovue 370 contrast. MIP images were reconstructed from the axial data set. Post-processing of the angiographic images was performed, with multiplanar reformation and 3D reconstruction. Individualized dose optimization techniques were used for this CT. COMPARISON: None. FINDINGS: AORTIC ARCH: Normal visualized aortic arch. Normal origins of the brachiocephalic, left common carotid, and left subclavian arteries. RIGHT CAROTID ARTERIES: Normal right common carotid artery (CCA). Normal right common carotid bulb. Normal origin of the right internal carotid (ICA) artery without a hemodynamically significant stenosis. Normal visualized cervical portion of the right internal carotid artery. Normal origin of the right external carotid artery (ECA). LEFT CAROTID ARTERIES: Normal left common carotid artery (CCA). Normal left common carotid bulb. Normal origin of the left internal carotid (ICA) artery without a hemodynamically significant stenosis. Normal visualized cervical portion of the left internal carotid artery. Normal origin of the left external carotid artery (ECA). VERTEBRAL ARTERIES: Normal bilateral vertebral arteries. CT/CTA Neck W/WO Contrast IMPRESSION: Normal bilateral cervical carotid and vertebral arteries. Electronically Signed: Aaron Diaz MD at 16:07 EST , Service support , CC: No Primary Care Physician; Michelle Liu MD Video Game Repair Technician: Signed BEDSIDE GLUCOSE Collected: 08/08/2018 Status: F Source: [place] 2:[address] [facility] REPOSITORY TYPE CODE TESTS RESULT OUT OF REFERENCE UNITS RANGE LAB L501.080 70-110 mg/dL High BEDSIDE GLU 111 Result Comment: MANAGEMENT OF PATIENT CARE PER NURSING PROTOCOL Performed By: #### L501.080 #### [facility] [place] [address] CBC W/DIFF, AUTOMATED Collected: 08/08/2018 Status: F Source: [place] 2:[address] [facility] REPOSITORY TYPE CODE TESTS RESULT OUT OF RANGE REFERENCE UNITS LAB L100.1000 4.4-11.0 K/mm3 Normal WBC 6.2 LAB L100.1200 4.2-5.4 M/mm3 Normal RBC 4.29 LAB L100.1300 12.0-15.0 g/dl Normal HGB 12.9 LAB L100.1400 37-47 % Normal HCT 40.8 LAB L100.1500 81-99 fL Normal MCV 95.1 LAB L100.1600 27.0-32.0 pg Normal MCH 30.1 LAB L100.1700 32-36 g/gl Low MCHC 31.6 LAB L100.1810 11.6-14.6 % Normal RDW CV 12.5 LAB L100.1820 35.1-43.9 fl Normal RDW SD 43.1 LAB L100.1900 150-450 K/mm3 Normal PLT 190 LAB L100.2000 6.2-12.0 fl Normal MPV 11.7 LAB L100.2100 47-70 % Low NEUT% 40.9 LAB L100.2200 19-41 % High LY% 48.9 LAB L100.2300 0-10 % Normal MONO% 7.1 LAB L100.2400 0-5 % Normal EO% 1.8 LAB L100.2500 0-1 % Normal BASO% 1.0 LAB L100.2550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
== END 2018-08-09 11:54 | disposition home or self-care (01) ==
LOC: ED 14:52 → PCU 17:04
PROVIDERS: Nurse Practitioner Family; Admitting Provider Internal Medicine; Emergency Provider Emergency Medicine; Visit Provider Internal Medicine
DX: R07.89 Other chest pain (principal); R20.0 Anesthesia of skin; R20.2 Paresthesia of skin; R53.1 Weakness; G51.0 Bell's palsy; Z23 Encounter for immunization; Z87.820 Personal history of traumatic brain injury; R29.705 NIHSS score 5; R29.810 Facial weakness; M99.01 Segmental and somatic dysfunction of cervical region; M99.03 Segmental and somatic dysfunction of lumbar region; M99.05 Segmental and somatic dysfunction of pelvic region; M99.02 Segmental and somatic dysfunction of thoracic region; F17.210 Nicotine dependence, cigarettes, uncomplicated
CPT/HCPCS: 36415; 70450; 70496; 70498; 70551; 71045; 80048; 80061; 82962; 84484; 85025; 85610; 85730; 93005; 96374; 96375; 96376; 97161; 97165; 99218; 99283; J7030; Q9967; 90686; A4216; G0378; J2405; J3490

== ENCOUNTER → 2018-08-25 06:50 | Outpatient (CLI) | payer OTHER, SELFPAY ==
[2018-08-11 14:10] VITALS: BMI 23.1
--- NOTE | 2018-08-25 13:55 | STRESSREP ---
Stress Test Report Exercise myocardial perfusion stress test. 42-year-old lady with a history of chest pain. Medications: Amoxicillin. Resting EKG demonstrates sinus bradycardia with a rate of 56 bpm normal intervals are noted. Resting blood pressure is 92/70 mmHg. The patient exercised according to regular Jarrett protocol for total duration of 8 minutes and 30 seconds the maximum heart rate attained was 164 bpm which was 92% of maximum predicted heart rate the maximum workload was 10.1 metabolic equivalents. At rest there were no ST or T wave changes noted suggest ischemia at peak exercise upsloping ST changes were noted with normally the criteria for ischemia. During recovery there was less than [address] depression. Specifically approximately 0.[address] depression which is nonspecific for ischemia. No clinical angina was noted. The peak blood pressure was 140/70 mmHg. Myocardial perfusion protocol. 11.4 mCi of technetium 99m sestamibi was injected at rest. Patient exercised according to regular Jarrett protocol for total duration of 8 minutes and 30 seconds at peak exercise 32.7 mCi of technetium 99m sestamibi was injected stress images were obtained stress and rest images were reconstructed and compared in the short axis vertical long and horizontal long axis. Gated images were also obtained per Perfusion SPECT analysis: Review of the stress images demonstrate normal uptake of tracer noted in all areas of the myocardium. The resting images similarly demonstrate normal uptake of tracer noted in all areas of the myocardium. No areas of reversibility are noted to suggest ischemia no previous infarct is noted. Gated SPECT analysis: The gated ejection fraction is noted to be 68%. Conclusion: Normal exercise myocardial perfusion stress test at a high workload. Preserved ejection fraction.
== END ==
PROVIDERS: Family Provider Internal Medicine; PCP Internal Medicine; Referring Provider Nurse Practitioner Family; Visit Provider Nurse Practitioner Family
DX: R07.9 Chest pain, unspecified (principal)
CPT/HCPCS: 78452; 93017; A9500; A4216

== ENCOUNTER → 2018-09-04 10:10 | Outpatient (CLI) | payer OTHER, SELFPAY ==
[2018-08-11 14:10] VITALS: BMI 23.1
[2018-08-25 10:56] VITALS: BMI 23.2
--- NOTE | 2018-09-04 10:45 | MRI_ITS ---
STUDY: MRI CERVICAL SPINE WITH AND WITHOUT CONTRAST REASON FOR EXAM: Female, 42 years old. Migraines. Dizziness. TECHNIQUE: Standardized fat and water weighted pulse sequences were obtained in the sagittal and axial following administration of Gadavist 7 IV. COMPARISON: None FINDINGS: Normal foramen magnum and brainstem-cervical cord junction. Normal craniovertebral junction. Normal anterior atlantoaxial articulation. Normal odontoid process. Mild cervical kyphosis at C5-C6 disc level. Normal vertebral bodies and posterior osseous elements. C2-3: Normal endplates. Normal disc height, signal and morphology. Normal central canal and intervertebral neural foramina. C3-4: Partial ankylosis in the posterior aspect of the C3 and C4 vertebral bodies. Normal central canal and bilateral intervertebral neural foramina. C4-5: Normal endplates. Normal disc height, signal and morphology. Normal central canal and intervertebral neural foramina. C5-6: Normal endplates. Mild disc space height narrowing with small right posterior paramedian disc protrusion. No extruded disc fragment. Normal central canal and bilateral intervertebral neural foramina. C6-7: Normal endplates. Mild disc space height narrowing. Small posterior bulging disc. Normal central canal and bilateral intervertebral neural foramina. C7-T1: Normal endplates. Normal disc height, signal and morphology. Normal central canal and intervertebral neural foramina. T1-T2: (Sagittal only). Normal endplates. Normal disc height with mild loss of disc hydration. No ventral extradural defect. Normal central canal and bilateral intervertebral neural foramina. T2-T3, T3-T4 and T4-T5: (Sagittal only). Normal endplates. Normal disc height, hydration and morphology. Normal central canal and bilateral intervertebral neural foramina. Normal cervical cord. No abnormal enhancing lesions intradurally and extradurally. No abnormal contrast enhancement of the cervical spinal cord. Normal visualized soft tissue structures. MRI/Spine Cervical W/WO Contrast IMPRESSION: 1. No MRI evidence of cervical extruded disc fragment or spinal stenosis. 2. Mild C5-C6 disc space height narrowing with small right posterior paramedian disc protrusion. 3. Mild C6-C7 disc space height narrowing with small posterior bulging disc. 4. Partial ankylosis in the posterior aspect of the C3 and C4 vertebral bodies. This is developmental. 5. No abnormal enhancing lesions intradurally and extradurally. Electronically Signed: Vadim Acosta MD at 16:44 EST , Service support ,
== END ==
PROVIDERS: Family Provider Internal Medicine; PCP Internal Medicine; Referring Provider Psychiatry & Neurology Neurology; Visit Provider Psychiatry & Neurology Neurology
DX: G37.3 Acute transverse myelitis in demyelinating disease of central nervous system (principal)
CPT/HCPCS: 72156; A9585

== ENCOUNTER → 2018-09-08 16:37 | Outpatient (CLI) | payer OTHER, SELFPAY ==
[2018-08-25 10:56] VITALS: BMI 23.2
[2018-09-08 17:58] LABS: CRP < 2.90 mg/L (0.0-3.0)
[2018-09-10 20:06] LABS: Endomysial Antibody IgA Negative (Negative)
[2018-09-11 12:20] LABS: Immunoglobulin A 312 mg/dL (87-352); t-Transglutaminase IgA <2 U/mL (0-3)
== END ==
PROVIDERS: Family Provider Internal Medicine; PCP Internal Medicine; Referring Provider Internal Medicine Gastroenterology; Visit Provider Internal Medicine Gastroenterology
DX: R10.9 Unspecified abdominal pain (principal); R19.7 Diarrhea, unspecified
CPT/HCPCS: 36415; 82784; 83516; 86140; 86255

== ENCOUNTER 2020-01-06 21:54 | Emergency (ER) | payer OTHER, SELFPAY ==
[2019-01-20 13:58] VITALS: BMI 23.2
[2020-01-06 21:55] VITALS: BP 120/76; PULSE 72; RESP 16; TEMP 36.3; O2SAT 100; BMI 22.8
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
[2020-01-06] MEDS: Ketorolac 60 MG/2 ML Vial IM (22:27)
[2020-01-06] MEDS: Orphenadrine 60 MG/2 ML Ampul IM (22:27)
[2020-01-06 22:31] VITALS: RESP 16
== END 2020-01-06 22:50 | disposition home or self-care (01) ==
PROVIDERS: Emergency Provider Emergency Medicine; PCP Internal Medicine
DX: M54.16 Radiculopathy, lumbar region (principal); M54.9 Dorsalgia, unspecified
CPT/HCPCS: 96372; 99282

== ENCOUNTER → 2020-02-16 10:48 | Outpatient (CLI) | payer OTHER, SELFPAY ==
[2020-02-16 10:18] VITALS: BMI 22.8
--- NOTE | 2020-02-16 10:55 | RAD_ITS ---
STUDY: X-RAY - PELVIS AND LEFT HIP REASON FOR EXAM: Female, 44 years old. PAIN IN LEFT HIP FOR ABOUT 4 MONTHS NOW. NO KNOWN INJURY. TECHNIQUE: 3 views of the pelvis and hip. COMPARISON: None. FINDINGS: There is a non-specific bowel gas pattern. Normal visualized soft tissue structures. Normal bilateral iliac wings, sacroiliac joints and visualized sacrum. Normal bilateral superior and inferior pubic rami. Normal pubic symphysis. Normal bilateral ischial tuberosities. Normal visualized femoral head. Normal acetabulum. There is mild articular joint space narrowing of the hip. Calcific density overlying the left greater trochanter. This most likely represents calcific tendinitis. RAD/HIP, UNI W/ Pelvis 2-3 Views IMPRESSION: Findings suggestive of calcific tendinitis of the left greater trochanter. Electronically Signed: Guerrero Hernandez, at 15:42 EDT , Service support ,
== END ==
PROVIDERS: PCP Internal Medicine; Referring Provider Nurse Practitioner Family; Visit Provider Nurse Practitioner Family
DX: M25.552 Pain in left hip (principal)
CPT/HCPCS: 73502

== ENCOUNTER → 2020-02-23 08:41 | Outpatient (CLI) | payer OTHER, SELFPAY ==
[2020-02-23 08:41] VITALS: BMI 22.8
--- NOTE | 2020-02-23 08:41 | RAD_ITS ---
STUDY: X-RAY - LUMBAR SPINE REASON FOR EXAM: Female, 44 years old. Lower back pain TECHNIQUE: 4 view(s) of the lumbar spine were obtained. COMPARISON: None FINDINGS: There is no evidence of fracture or dislocation in the lumbar spine. The vertebral body heights are well-maintained. There are mild degenerative changes at L5/S1. There is no evidence of subluxation on flexion or extension. RAD/L/S Spine Min 4 Views IMPRESSION: No fracture or dislocation in the lumbar spine. Mild degenerative change at L5/S1. Electronically Signed: Manuel Conteh, at 17:01 EDT Tel , Service support ,
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
== END ==
PROVIDERS: PCP Internal Medicine; Referring Provider Orthopaedic Surgery; Visit Provider Orthopaedic Surgery
DX: M25.552 Pain in left hip (principal); M79.605 Pain in left leg
CPT/HCPCS: 72110; 73552

== ENCOUNTER → 2020-02-23 09:24 | Outpatient (CLI) | payer OTHER, SELFPAY ==
[2020-02-16 10:18] VITALS: BMI 22.8
[2020-02-23 08:41] VITALS: BMI 22.8
[2020-02-23 11:04] LABS: Absolute Lymphocyte Count 3.53 X10^3/uL (0.83-4.51); Absolute Neutrophil Count 5.1 X10^3/uL (2.0-7.7); Basophil# 0.07 X10^3/uL; Basophil% 0.7 % (0-1); Hematocrit 41.8 % (37-47); Lymphocyte # 3.53 X10^3/ul (4.0); Lymphocyte % 36.7 % (19-41); Mean Corp Hgb Conc 31.1 g/dL (32-36); Mean Corpuscular Hgb 30.2 pg (27.0-32.0); Mean Corpuscular Volume 97.2 fL (81-99); Mean Platelet Vol. 12.6 fl (6.2-12.0); Monocyte# 0.81 X10^3/uL; Monocyte% 8.4 % (0-10); NRBC Flagged by Analyzer 0 % (0-5); Neutrophil # 5.05 X10^3/uL (2.7-7.7); Neutrophil % 52.7 % (47-70); Platelet Count 219 K/mm3 (150-450); RBC Distribution Width CV 12.8 % (11.6-14.6); RBC Distribution Width SD 45.5 fl (35.1-43.9); White Blood Count 9.6 K/mm3 (4.4-11.0)
[2020-02-23 11:27] LABS: ALB/GLOB Ratio 1.1 RATIO (0.9-2.4); AST(SGOT) 7 U/L (15-37); Alanine Aminotransfer ALT/SGPT 25 U/L (13-56); Albumin, Serum 3.5 g/dL (3.2-5.0); Alkaline Phosphatase 55 U/L (45-117); Anion Gap 1 (5-15); BUN 12 mg/dL (7-18); BUN/Creat Ratio 13.9 RATIO (10-20); Calcium,Total 8.9 mg/dL (8.5-10.1); Chloride 111 mmol/L (98-107); Cholesterol 175 mg/dL (200); Creatinine, Serum 0.86 mg/dL (0.55-1.02); EST Glomerular Filtration Rate 76 mL/min (>60); Est Glom Filt Rate - Afr Amer 92 mL/min (>60); Globulin 3.3 g/dL (2.2-4.2); Glucose 83 mg/dL (74-106); High Density Lipoprotein 65 mg/dL; Protein, Total 6.8 g/dL (6.4-8.2); Sodium Level 142 mmol/L (136-145); Thyroid Stim Hormone (TSH) 2.31 uIU/mL (0.358-3.74); Triglycerides 69 mg/dL; Very Low Density Lipoprotein 14 mg/dL (5-40)
== END ==
PROVIDERS: PCP Internal Medicine; Referring Provider Nurse Practitioner Family; Visit Provider Nurse Practitioner Family
DX: Z00.00 Encounter for general adult medical examination without abnormal findings (principal); F41.9 Anxiety disorder, unspecified; M62.838 Other muscle spasm
CPT/HCPCS: 36415; 80053; 80061; 84443; 85025

== ENCOUNTER 2020-03-07 12:58 | Outpatient (RCR) | payer OTHER, SELFPAY ==
[2020-02-23 08:41] VITALS: BMI 22.8
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
--- NOTE | 2020-03-14 08:16 | HP.PTDCNRP_ITS ---
PHILIP CURRY was seen in my office for initial evaluation on 03/07/20. The following Plan of Care was established for this patient: Initial Frequency: 2x /Week Patient/Client Instruction: Educate patient on: Condition, Plan of Care For the Purpose of:: To decrease pain, To increase ROM, To improve muscle p erformance and motor function, To improve ability to perform ADL's, To increase tolerance to activity/condition/position, To improve ability of physical actions for home/community/work/leisure, To improve health of tissue, To decrease soft tissue restriction, To increase flexibility/ROM, To improve ability to perform tasks related to life management Therapeutic Exercise to Include: Strength training, Postural training, Flexibilty training, Active ROM, Dynamic Lumbar Stabilization For the Purpose of:: To decrease pain, To increase ROM, To improve muscle performance and motor function, To improve ability to perform ADL's, To increase tolerance to activity/condition/position, To improve ability of physical actions for home/community/work/leisure, To improve gait and locomotor functions, To improve health of tissue, To decrease soft tissue restriction, To increase flexibility/ROM, To reduce risk of recurrence, To improve ability to perform tasks related to life management Manual Therapy Techniques to Include: Soft tissue mobilization Comment: I TBAND For the Purpose of:: To decrease pain, To increase ROM, To improve nutrient delivery to tissue, To increase oxygenation perfusion, To improve health of tissue, To decrease soft tissue restriction TENS: Yes IF ES: Yes Cryotherapy (ice pack, ice massage): Yes Thermo therapy (hot pack): Yes Ultrasound (thermal/non thermal): Yes For the Purpose of:: To decrease pain, To decrease swelling/inflammation, To improve nutrient delivery to tissue, To increase oxygenation perfusion, To improve health of tissue, To decrease soft tissue restriction This patient was last seen in our office . Pertinent comments regarding their Physical therapy will appear below: Patient seen for PT intial Evaluation but d/c due to losing job. At this point I will be discontinuing this patient from physical therapy. I would be happy to see this patient again in the future if found appropriate by the physician. Thank you! Petey Jones, PT, Cert MDT, OCS
== END 2020-03-07 19:00 | disposition home or self-care (01) ==
LOC: PT 12:58
PROVIDERS: PCP Internal Medicine; Visit Provider Orthopaedic Surgery
DX: M51.36 Other intervertebral disc degeneration, lumbar region (principal); M70.62 Trochanteric bursitis, left hip; Y93.9 Activity, unspecified
CPT/HCPCS: 97110; 97162

== ENCOUNTER 2020-09-12 19:30 | Emergency (ER) | payer SELFPAY ==
[2020-04-03 08:00] VITALS: BMI 22.8
[2020-09-12 19:33] VITALS: BP 145/75; PULSE 82; RESP 16; TEMP 36.1; O2SAT 100; BMI 22.8
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
[2020-09-12] MEDS: DiphenhydrAMINE 25 MG Capsule 50 MG PO (20:43)
[2020-09-12] MEDS: HYDROcodone Bitartrate/Apap 5/325 Tablet PO (20:43)
--- NOTE | 2020-09-12 20:43 | US_ITS ---
STUDY: VENOUS DOPPLER ULTRASOUND - RIGHT LOWER EXTREMITY REASON FOR EXAM: Female, 44 years old. RIGHT KNEE PAIN -- HIVES TECHNIQUE: Ultrasound evaluation of the deep vein system to include rubio-scale imaging and compression was performed. Rubio-scale imaging and Doppler sonographic evaluation, including duplex spectral analysis and qualitative color flow sonography, was performed. COMPARISON: None. FINDINGS: Common Femoral Vein: Normal compression, spontaneity and augmentation. Normal color Doppler. Common Femoral Vein/Greater Saphenous Junction: Normal compression, spontaneity and augmentation. Normal color Doppler. Femoral Proximal: Normal compression, spontaneity and augmentation. Normal color Doppler. Femoral Middle: Normal compression, spontaneity and augmentation. Normal color Doppler. Femoral Distal: Normal compression, spontaneity and augmentation. Normal color Doppler. Popliteal Vein: Normal compression, spontaneity and augmentation. Normal color Doppler. Posterior Tibial Vein: Normal compression, spontaneity and augmentation. Normal color Doppler. Peroneal Vein: Normal compression, spontaneity and augmentation. Normal color Doppler. The left common femoral vein was evaluated and is normal. US/Venous Duplex Imag/Limited/Uni IMPRESSION: No demonstrated deep venous thrombosis of the right lower extremity Electronically Signed: Joseph Carter MD at 21:49 EST , Service support ,
[2020-09-12 22:45] VITALS: BP 107/66; PULSE 77; RESP 18; O2SAT 100
== END 2020-09-12 23:08 | disposition home or self-care (01) ==
PROVIDERS: Emergency Provider Emergency Medicine; PCP Internal Medicine
DX: S83.91XA Sprain of unspecified site of right knee, initial encounter (principal); F17.200 Nicotine dependence, unspecified, uncomplicated; Z90.710 Acquired absence of both cervix and uterus; Z90.49 Acquired absence of other specified parts of digestive tract; X58.XXXA Exposure to other specified factors, initial encounter
CPT/HCPCS: 73564; 93971; 99284

== ENCOUNTER 2021-03-22 21:35 | Emergency (ER) | payer SELFPAY ==
[2021-03-22 21:36] VITALS: BP 148/62; PULSE 90; RESP 18; TEMP 36.7; O2SAT 100; BMI 25.2
--- NOTE | 2021-03-22 22:12 | EKG12_ITS ---
Test Reason : CP Blood Pressure : / mmHG Vent. Rate : 094 BPM Atrial Rate : 094 BPM P-R Int : 154 ms QRS Dur : 088 ms QT Int : 368 ms P-R-T Axes : 076 081 042 degrees QTc Int : 460 ms Normal sinus rhythm Nonspecific ST abnormality Abnormal ECG Confirmed by ANGELIKA THAO, MJ ([id number]), non linear editor TONY CAMPBELL ([id number]) on 03/27/2021 8:21:29 AM Referred By: Confirmed By:CARLY CARNEY MD
--- NOTE | 2021-03-22 22:13 | EDS_ITS ---
HPI History of Present Illness Chief Complaint: Chest Pain Informant: patient Narrative Narrative: Patient presents with left sided Chest pain. It started about 5:00 this evening. It seemed to be getting better but then came back stronger shortly after that. It is never gone away. It is mostly left-sided. She is not short of breath but it does hurt a little bit to breathe. She has not had nausea. There is been no diaphoresis. Deep breaths and sometimes moving or pressing left chest wall make it worse. Nothing makes it better. She has no recent travel surgery immobilization personal or family history of DVT or PE. No hormonal therapy. No history of high blood pressure diabetes cholesterol or heart disease. She is a smoker and was counseled on the need to quit. She denies fevers chills sweats or coughing. Of note, patient did have a nuclear stress test back in August 2018 that was negative. She states she does not recall any details as to what was going on at the time. 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 [facility] Medical History (Updated 03/23/21 @ 01:[address] Trevon Siddiqui MD) History of depression Home Medications citalopram 20 mg PO DAILY 09/12/20 [History Last Taken Unknown] mirtazapine 15 mg PO QHS 09/12/20 [History Last Taken Unknown] diazepam 5 mg PO DAILY PRN 03/22/21 [History Last Taken Unknown] hydroxyzine HCl 25 mg PO BID 03/22/21 [History Last Taken Unknown] naproxen 500 mg PO BID #14 tab 03/23/21 [Rx Last Taken Unknown] Allergy/AdvReac Type Severity Reaction Status Date / Time doxycycline AdvReac Vomiting Verified 03/22/21 21:36 Family History Father Heart disease Colon cancer Grandmother Breast cancer Unknown Heart disease Grandfather CVA (cerebral vascular accident) Mother Hypertension Hyperlipemia Surgical History H/O eye surgery H/O knee surgery History of ankle surgery History of brain surgery History of ear surgery History of laparoscopy History of [facility] Hx laparoscopic cholecystectomy Social History Smoking Status: Current every day smoker tobacco type: cigarettes Tobacco: How many years used: 30 alcohol intake: never substance use type: does not use caffeine: Yes what type of physical activity do you participate in: walking seatbelt use: always do you feel safe at home: Yes additional social history: - ROS ROS ED Constitutional Constitutional ED: Denies chills or fever(s) Eyes Eyes: Denies change in vision ENT ENT ED: Denies rhinorrhea or sore throat Cardiovascular Cardiovascular: Reports chest pain; Denies palpitations Respiratory/Chest Respiratory/Chest: Denies cough, dyspnea or sputum Gastrointestinal Gastrointestinal: Denies abdominal pain, nausea or vomiting Genitourinary Genitourinary ED: Denies hematuria Musculoskeletal Musculoskeletal: Denies back pain or neck pain Integumentary Denies rash Neurologic Neurologic: Denies headache(s), paresthesias or weakness Psychiatric Psychiatric: Reports anxiety and depression Hematologic/Lymphatic Hematologic/Lymphatic: Denies easy bleeding or easy bruising Allergic/Immunologic Allergic/Immunologic ED: Denies urticaria EXAM Physical Exam Const Vital Signs: 03/22/21 21:36 03/22/21 21:44 03/22/21 22:27 Temperature 98.0 F Temperature Source Oral Pulse Rate 90 Respiratory Rate 18 Respiratory Pattern Normal Blood Pressure 148/62 H Blood Pressure Mean 90 Pulse Ox 100 Oxygen Delivery Method Room Air Nasal Cannula Oxygen Flow Rate (L/min) 2 03/22/21 23:31 03/23/21 00:14 03/23/21 01:01 Temperature Temperature Source Pulse Rate 68 69 59 L Respiratory Rate 12 15 16 Respiratory Pattern Blood Pressure 110/69 Blood Pressure Mean 82 Pulse Ox 100 99 Oxygen Delivery Method Room Air Oxygen Flow Rate (L/min) Positive well nourished and well developed General Appearance ED: well developed and NAD HEENT Reports moist mucous membranes atraumatic Eyes General Eye ED: Negative for pale conjunctiva or scleral icterus Neck No no lymphadenopathy and No no JVD Chest Wall inspection of chest normal Chest Narrative: There is some isolated tenderness to the left of the sternum at approximately the fifth rib area. But is not red or inflamed. This does not reproduce all of her symptoms but some of them. Resp normal respiratory effort and clear to auscultation bilaterally Resp Narrative: Lungs are clear. She does have some discomfort with a deep breath. She also has some discomfort with motion. Cardio regular rate, regular rhythm and no murmurs Rate: other Other Details: Normal bilateral peripheral pulses upper and lower extremities and are equal. GI normal to inspection, nondistended, normoactive bowel sounds, soft to palpation and non-tender GI Narrative: Benign abdomen and she has had cholecystectomy in the past Back/Spine no CVA tenderness Extremity normal to inspection Extremity Narrative: No edema or cords tenderness or asymmetry. General Extremety ED: Yes pulses abnormal; Negative for edema or tenderness General Extremity: pulses abnormal; Negative for edema Neuro Sensorium / Orientation: awake and alert Psych mental status grossly normal MDM MDM MDM Narrative Medical decision making narrative: We rechecked the patient. She is feeling a bit better. Her heart rate is down about 30 bpm. She looks more comfortable. She still has some soreness. Her CBC shows no acute process. Electrolytes are overall unremarkable. D-dimer is negative. Troponin is only 4. She now shares information that she did just have a seizure yesterday. She does have a history of these. But she does not know if she could have hurt herself. Her x-ray does show no acute process. We will recheck troponin to make sure there is no significant change. Repeat EKG and troponin are negative. We will get the patient home. We will get her on nonsteroidals. We will have her follow-up with her physician. Lab Data Labs: Laboratory Results - last 24 hr 03/22/21 03/22/21 03/22/21 22:20 22:20 22:20 WBC 8.2 RBC 4.40 Hgb 13.2 Hct 41.4 MCV 94.1 MCH 30.0 MCHC 31.9 L RDW Std Deviation 42.1 RDW Coeff of Zara 11.9 Plt Count 219 MPV 12.0 Immature Gran % (Auto) 0.200 Neut % (Auto) 53.2 Lymph % (Auto) 36.3 [place] % (Auto) 7.2 Eos % (Auto) 2.2 Baso % (Auto) 0.9 Absolute Neuts (auto) 4.3 Absolute Lymphs (auto) 2.96 Nucleated RBC % 0 D-Dimer Quant (PE/DVT) < 0.27 L Sodium 138 Potassium 3.5 Chloride 106 Carbon Dioxide 30.0 Anion Gap 2 L BUN 7 Creatinine 0.78 Estim Creat Clear Calc 87.64 Est GFR (MDRD) Af Amer 102 Est GFR (MDRD) Non-Af 85 BUN/Creatinine Ratio 9.0 L Glucose 80 Calcium 9.1 Troponin I High Sens 4 03/23/21 00:30 WBC RBC Hgb Hct MCV MCH MCHC RDW Std Deviation RDW Coeff of Zara Plt Count MPV Immature Gran % (Auto) Neut % (Auto) Lymph % (Auto) [place] % (Auto) Eos % (Auto) Baso % (Auto) Absolute Neuts (auto) Absolute Lymphs (auto) Nucleated RBC % D-Dimer Quant (PE/DVT) Sodium Potassium Chloride Carbon Dioxide Anion Gap BUN Creatinine Estim Creat Clear Calc Est GFR (MDRD) Af Amer Est GFR (MDRD) Non-Af BUN/Creatinine Ratio Glucose Calcium Troponin I High Sens 4 Radiography Diagnostic Testing: Radiology Impression Chest X-Ray 03/22/21 22:50 IMPRESSION: No acute cardiac pulmonary disease identified. Electronically Signed: Serg Mae MD at 23:10 EDT Tel , Service support , EKG Initial EKG: Comments: EKG done for chest pain read by me shows sinus rhythm with rate of 94. There is some baseline variation. No ectopy. No acute ST elevation consistent with NM. HI interval, QRS duration, QTc normal. Although she has had a nuclear stress test I do not see prior EKG available. We then were able to get a prior EKG from 2019. The rate was slower at the time at 47. No other marked difference. Follow-up EKG: Comments: Repeat EKG shows normal sinus rhythm at 61. No ventricular ectopy. No acute ST elevation or depression consistent with infarct or ischemia. HI interval, QRS duration QTC is normal. This looks similar to 09 August 2018. Discharge Plan Triage Chief Complaint: Chest Pain ED Provider: Trevon Siddiqui Dx/Rx/DC Orders Clinical Impression: Chest pain Instructions: ED Chest Pain, Uncertain Cause Prescriptions: New naproxen 500 MG tablet 500 mg PO BID Qty: 14 RF: 0 No Action citalopram 20 MG tablet 20 mg PO DAILY RF: 0 mirtazapine 15 MG tablet 15 mg PO QHS RF: 0 hydroxyzine HCl 25 mg Tablet 25 mg PO BID RF: 0 diazepam 5 mg Tablet 5 mg PO DAILY PRN (Reason: Anxiety) RF: 0 Primary Care Provider: Philip Waddell Referrals: Philip Waddell MD [Primary Care Provider] - 3-5 Days Disposition Disposition: Home, Self Care
[2021-03-22] MEDS: Aspirin 81 MG TAB.CHEW 324 MG PO (22:28)
[2021-03-22] MEDS: Morphine 4 MG/ML Syringe IV (22:29)
[2021-03-22 22:40] LABS: Absolute Lymphocyte Count 2.96 X10^3/uL (0.83-4.51); Absolute Neutrophil Count 4.3 X10^3/uL (2.0-7.7); Basophil# 0.07 X10^3/uL; Basophil% 0.9 % (0-1); Eosinophil# 0.18 X10^3/uL; Eosinophils% 2.2 % (0-5); Hematocrit 41.4 % (37-47); Hemoglobin 13.2 g/dL (12.0-15.0); Lymphocyte # 2.96 X10^3/ul (0.83-4.51); Lymphocyte % 36.3 % (19-41); Mean Corp Hgb Conc 31.9 g/dL (32-36); Mean Corpuscular Volume 94.1 fL (81-99); Monocyte# 0.59 X10^3/uL; Monocyte% 7.2 % (0-10); NRBC Flagged by Analyzer 0 % (0-5); Neutrophil # 4.33 X10^3/uL (2.7-7.7); Neutrophil % 53.2 % (47-70); Platelet Count 219 K/mm3 (150-450); RBC Distribution Width CV 11.9 % (11.6-14.6); RBC Distribution Width SD 42.1 fl (35.1-43.9); White Blood Count 8.2 K/mm3 (4.4-11.0)
[2021-03-22 22:50] LABS: D-Dimer Quantitative (DVT/PE) < 0.27 FEU/ug/m (0.27-0.49)
--- NOTE | 2021-03-22 22:50 | RAD_ITS ---
STUDY: X-RAY CHEST REASON FOR EXAM: Female, 45 years old. chest pain TECHNIQUE: Single frontal view of the chest. COMPARISON: None. FINDINGS: The lungs are clear and expanded. There is no demonstrated pleural abnormality. Normal size heart. Normal mediastinum and foreign. Normal visualized pulmonary arteries. Normal visualized aortic arch and descending thoracic aorta. Scoliotic curvature involving the spine. No displaced fractures identified. There is no demonstrated abnormality of the visualized soft tissue structures of the upper abdomen. RAD/Chest 1 View (Portable) IMPRESSION: No acute cardiac pulmonary disease identified. Electronically Signed: Serg Mae MD at 23:10 EDT Tel , Service support ,
[2021-03-22 22:54] LABS: Anion Gap 2 (5-15); BUN 7 mg/dL (7-18); Calcium,Total 9.1 mg/dL (8.5-10.1); Chloride 106 mmol/L (98-107); Creatinine, Serum 0.78 mg/dL (0.55-1.02); EST Glomerular Filtration Rate 85 mL/min (>60); Est Glom Filt Rate - Afr Amer 102 mL/min (>60); Estimated Creatinine Clearance 87.64 ml/min; Glucose 80 mg/dL (74-106); Potassium 3.5 mmol/L (3.5-5.1); Sodium Level 138 mmol/L (136-145); Troponin-I HS 4 pg/mL (3.0-54.0)
[2021-03-22 23:31] VITALS: BP 110/69; PULSE 68; RESP 12; O2SAT 100
--- NOTE | 2021-03-23 00:08 | EKG12_ITS ---
Test Reason : REPEAT EKG Blood Pressure : / mmHG Vent. Rate : 061 BPM Atrial Rate : 061 BPM P-R Int : 146 ms QRS Dur : 086 ms QT Int : 408 ms P-R-T Axes : 066 071 065 degrees QTc Int : 410 ms Normal sinus rhythm with sinus arrhythmia Normal ECG Confirmed by ANGELIKA THAO, MJ ([id number]), photo editor TONY CAMPBELL ([id number]) on 03/27/2021 8:21:48 AM Referred By: PL Confirmed By:CARLY CARNEY MD
[2021-03-23 00:14] VITALS: PULSE 69; RESP 15
[2021-03-23] MEDS: Ketorolac 15 MG/ML Vial IV (00:40)
[2021-03-23 00:58] LABS: Troponin-I HS 4 pg/mL (3.0-54.0)
[2021-03-23 01:01] VITALS: PULSE 59; RESP 16; O2SAT 99
[2021-03-23 01:30] VITALS: BP 110/69; PULSE 66; RESP 16; O2SAT 100
== END 2021-03-23 01:31 | disposition home or self-care (01) ==
PROVIDERS: Emergency Provider Emergency Medicine; PCP Internal Medicine
DX: R07.9 Chest pain, unspecified (principal); F17.210 Nicotine dependence, cigarettes, uncomplicated; F32.9 Major depressive disorder, single episode, unspecified; Z79.899 Other long term (current) drug therapy
CPT/HCPCS: 71045; 80048; 84484; 85025; 85379; 93005; 96374; 96375; 99285; A4216

== ENCOUNTER 2021-07-13 20:39 | Emergency (ER) | payer BC, SELFPAY ==
[2021-07-13 20:39] VITALS: BP 137/84; PULSE 82; RESP 16; TEMP 37.1; O2SAT 100; BMI 23.6
--- NOTE | 2021-07-13 21:14 | CT_ITS ---
INDICATION: Right flank pain EXAMINATION: CT ABDOMEN AND PELVIS WITH CONTRAST - CT Abdomen And Pelvis W/ Contrast Injection TECHNIQUE: Helically acquired images were obtained of the abdomen and pelvis following IV contrast. A radiation dose optimization technique was used for this scan. IV Contrast dosage and agent: 100 mL of [id number] Oral contrast: None. COMPARISON: None. FINDINGS: LOWER CHEST: Lung bases are clear. No cardiomegaly or pericardial effusion. LIVER: 2.1 cm right segment 8 near fluid density and a 5 mm posterior segment 6 hypodensity suggesting cysts. No focal mass. GALLBLADDER AND BILIARY TREE: Gallbladder appears to be surgically absent. There is mild intrahepatic biliary ductal dilation and 1 cm dilation of the common bile duct. No filling defect simplified. No pancreatic mass lesion exemplified. PANCREAS: No focal cystic or solid mass. SPLEEN: Normal size without focal cystic or solid mass. ADRENAL GLANDS: No nodules. KIDNEYS AND URETERS: Normal renal size and position. No hydronephrosis. PERITONEUM: No ascites or free air. No other fluid collection. BOWEL: No evidence of acute appendicitis. No stomach or bowel distension. No focal inflammatory change. LYMPH NODES: No enlarged mesenteric or retroperitoneal lymph nodes. VESSELS: Aorta is non-dilated. URINARY BLADDER: Unremarkable. REPRODUCTIVE ORGANS: Absent uterus. Small right ovary with no follicles. 6.8 x 4.3 x 6.1 cm multilobulated septated cystic structure left adnexa likely representing ovarian cysts ABDOMINAL WALL: No discrete abdominal or pelvic wall hernia. BONES: No lytic or blastic abnormality. Moderate degenerative disc and endplate changes L5-S1 and degenerative changes sacroiliac joints. CT/Abdomen/Pelvis W IV Cont ONLY IMPRESSION: Mild intrahepatic biliary ductal dilation and dilated common bile duct without visible filling defect or stone. Correlation with right upper quadrant ultrasound and/or MRCP may be helpful. Right hepatic lobe hypodensities most likely representing cysts. Electronically Signed: Lester Rodrigez DO at 23:14 EST Tel , Service support ,
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
[2021-07-13] MEDS: Ketorolac 30 MG/ML Syringe IV (21:33)
[2021-07-13] MEDS: Ondansetron 4 MG/2 ML Vial IV (21:33)
[2021-07-13] MEDS: 0.9% Normal Saline 1,000 ML 1000 ML IV (21:33)
[2021-07-13] MEDS: morphine 8 MG/ML Syringe IV (21:34)
[2021-07-13 21:39] LABS: White Blood Cells 0 SEEN /hpf (0-5)
[2021-07-13 21:49] LABS: Absolute Lymphocyte Count 2.51 X10^3/uL (0.83-4.51); Absolute Neutrophil Count 3.7 X10^3/uL (2.0-7.7); Basophil# 0.11 X10^3/uL; Basophil% 1.5 % (0-1); Eosinophil# 0.28 X10^3/uL; Eosinophils% 3.9 % (0-5); Hematocrit 45.5 % (37-47); Hemoglobin 14.6 g/dL (12.0-15.0); Lymphocyte # 2.51 X10^3/ul (0.83-4.51); Lymphocyte % 34.5 % (19-41); Mean Corp Hgb Conc 32.1 g/dL (32-36); Mean Corpuscular Hgb 30.1 pg (27.0-32.0); Mean Corpuscular Volume 93.8 fL (81-99); Mean Platelet Vol. 12.1 fl (6.2-12.0); Monocyte# 0.67 X10^3/uL; Monocyte% 9.2 % (0-10); NRBC Flagged by Analyzer 0 % (0-5); Neutrophil # 3.67 X10^3/uL (2.7-7.7); Neutrophil % 50.5 % (47-70); Platelet Count 194 K/mm3 (150-450); RBC Distribution Width CV 11.9 % (11.6-14.6); RBC Distribution Width SD 41.5 fl (35.1-43.9); Red Blood Count 4.85 M/mm3 (4.2-5.4); White Blood Count 7.3 K/mm3 (4.4-11.0)
[2021-07-13 21:51] LABS: Color, Urine Yellow (Yellow); Glucose, Dipstick Normal (Normal); Ketone-Dipstick 5 mg/dl (Negative); Leukocyte Esterase-Dipstick Negative /ul (Negative); Nitrite-Dipstick Negative (Negative); Occult Blood-Urine 10 /ul (Negative); Protein-Dipstick 15 mg/dl (Negative); Urine Bilirubin Dipstick Negative (Negative); Urine Clarity Cloudy (Clear); Urine Urobilinogen 1 mg/dl (Normal)
[2021-07-13 21:53] LABS: ALB/GLOB Ratio 0.9 RATIO (0.9-2.4); AST(SGOT) 8 U/L (15-37); Alanine Aminotransfer ALT/SGPT 13 U/L (13-56); Albumin, Serum 3.7 g/dL (3.2-5.0); Alkaline Phosphatase 74 U/L (45-117); Anion Gap 6 (5-15); BUN 8 mg/dL (7-18); BUN/Creat Ratio 6.9 RATIO (10-20); Calcium,Total 9.6 mg/dL (8.5-10.1); Chloride 111 mmol/L (98-107); Creatinine, Serum 1.16 mg/dL (0.55-1.02); EST Glomerular Filtration Rate 53 mL/min (>60); Est Glom Filt Rate - Afr Amer 65 mL/min (>60); Estimated Creatinine Clearance 61.13 ml/min; Globulin 3.9 g/dL (2.2-4.2); Glucose 88 mg/dL (74-106); Lipase 284 U/L (73-393); Potassium 3.6 mmol/L (3.5-5.1); Protein, Total 7.6 g/dL (6.4-8.2); Sodium Level 144 mmol/L (136-145)
[2021-07-13 22:19] LABS: Bacteria 2+ /hpf (None Seen); Mucous, Urine RARE /hpf (<or=2+); Red Blood Cells-Urine 0-5 SEEN /hpf (0-5); Squamous Epithelial Cells - UA 5-10 SEEN /hpf (5-10)
[2021-07-13 23:33] VITALS: BP 113/74
== END 2021-07-13 23:35 | disposition home or self-care (01) ==
PROVIDERS: Emergency Provider Emergency Medicine; PCP Internal Medicine
DX: R10.9 Unspecified abdominal pain (principal); R11.0 Nausea; R19.7 Diarrhea, unspecified; K92.1 Melena; F17.210 Nicotine dependence, cigarettes, uncomplicated; Z90.49 Acquired absence of other specified parts of digestive tract; Z87.442 Personal history of urinary calculi
CPT/HCPCS: 74177; 80053; 81001; 83690; 85025; 87426; 96374; 96375; 99283; J7030; Q9967; A4216; J2405

== ENCOUNTER 2021-07-24 11:27 | Outpatient (CLI) | payer BC, SELFPAY | END 2021-07-24 23:59 | disposition short-term general hospital (02) | LOC: LABSPEC 11:29 | PROVIDERS: PCP Internal Medicine; Referring Provider Nurse Practitioner Family; Visit Provider Nurse Practitioner Family | DX: U07.1 COVID-19 (principal) | CPT/HCPCS: 87635; U0003; U0005 ==

== ENCOUNTER 2021-09-11 11:27 | Observation (INO) | payer BC, SELFPAY ==
[2021-09-11] VITALS (10 sets, daily range): BP systolic 98–117; BP diastolic 45–67; PULSE 53–89; RESP 12–22; TEMP 36.3–36.7; O2SAT 96–100; BMI 23.6; BMI 23.1
--- NOTE | 2021-09-11 12:41 | EKG12_ITS ---
Test Reason : DISSINESS Blood Pressure : / mmHG Vent. Rate : 054 BPM Atrial Rate : 054 BPM P-R Int : 154 ms QRS Dur : 098 ms QT Int : 428 ms P-R-T Axes : 064 071 057 degrees QTc Int : 405 ms Sinus bradycardia with sinus arrhythmia Otherwise normal ECG Confirmed by CARMINA THAO, MARLA ([id number]), acquisition editor TONY CAMPBELL ([id number]) on 09/13/2021 8:16:04 AM Referred By: MOHSEN Confirmed By:MARLA GREWAL MD
--- NOTE | 2021-09-11 12:41 | CT_ITS ---
STUDY: CT BRAIN WITHOUT CONTRAST REASON FOR EXAM: Female, 45 years old. Dizziness RADIATION DOSAGE (If Supplied By Facility): CTDIvol = ( 44.99 ) mGy, DLP = ( 812.98 ) mGycm TECHNIQUE: Transaxial CT imaging of the brain was performed without administration of intravenous contrast material. Individualized dose optimization techniques were used for this CT. COMPARISON: Comparison is made with prior study dated 08/08/1999. FINDINGS: Normal soft tissue structures. The patient is status post right temporoparietal craniotomy. Normal size ventricles and extra-axial spaces for the patient''s age. Focal area of encephalomalacia in the right temporal parietal lobe in keeping with prior surgery. Normal basal ganglia and thalami. Normal brainstem. Normal cerebellum. There is no intracranial hemorrhage. There are no findings of an acute ischemic infarction. Normal visualized paranasal sinuses. CT/Brain/Head without Contrast IMPRESSION: Status post right temporoparietal craniotomy with evidence of stable encephalomalacia in the right temporoparietal lobe. Electronically Signed: Guerrero Hernandez MD at 13:55 EST ,
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
[2021-09-11] MEDS: Meclizine HCl 25 MG Tablet PO ×2 (12:49→20:43)
[2021-09-11] MEDS: 0.9% Normal Saline 1,000 ML 1000 ML IV (13:07)
[2021-09-11 13:21] LABS: Absolute Lymphocyte Count 1.81 X10^3/uL (0.83-4.51); Absolute Neutrophil Count 2.3 X10^3/uL (2.0-7.7); Basophil# 0.05 X10^3/uL; Eosinophils% 2.1 % (0-5); Hematocrit 43.5 % (37-47); Hemoglobin 14.4 g/dL (12.0-15.0); Lymphocyte # 1.81 X10^3/ul (0.83-4.51); Lymphocyte % 37.6 % (19-41); Mean Corp Hgb Conc 33.1 g/dL (32-36); Mean Corpuscular Volume 93.8 fL (81-99); Mean Platelet Vol. 11.7 fl (6.2-12.0); Monocyte# 0.53 X10^3/uL; NRBC Flagged by Analyzer 0 % (0-5); Neutrophil # 2.31 X10^3/uL (2.7-7.7); Neutrophil % 48.1 % (47-70); Platelet Count 212 K/mm3 (150-450); RBC Distribution Width CV 12.2 % (11.6-14.6); RBC Distribution Width SD 42.1 fl (35.1-43.9); Red Blood Count 4.64 M/mm3 (4.2-5.4); White Blood Count 4.8 K/mm3 (4.4-11.0)
[2021-09-11 13:29] LABS: Anion Gap 6 (5-15); BUN 10 mg/dL (7-18); BUN/Creat Ratio 13.1 RATIO (10-20); Calcium,Total 9.2 mg/dL (8.5-10.1); Chloride 107 mmol/L (98-107); Creatinine, Serum 0.76 mg/dL (0.55-1.02); EST Glomerular Filtration Rate 86 mL/min (>60); Est Glom Filt Rate - Afr Amer 104 mL/min (>60); Glucose 88 mg/dL (74-106); Potassium 4.1 mmol/L (3.5-5.1); Sodium Level 140 mmol/L (136-145)
--- NOTE | 2021-09-11 16:00 | TELEMED_ITS ---
[facility] has confirmed receipt of a request for visit. This document confirms receipt of the order initiating the consult. To find the results of the consultation, please view the patient's reports for the scanned Telemed Consult.
--- NOTE | 2021-09-11 17:19 | NURSING ---
PCU OBS VERTIGO LEFT ARM PARESTHESIS
[2021-09-11] MEDS: Aspirin 325 MG Tablet PO (17:25)
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
--- NOTE | 2021-09-11 17:59 | CT_ITS ---
We are attempting to reach an attending provider to discuss findings. An addendum with communication details will be sent when the communication is complete. EXAM: CT ANGIOGRAPHY HEAD AND NECK WITH INTRAVENOUS CONTRAST CLINICAL INDICATION: Neuro deficit, acute, stroke suspected TECHNIQUE: [place]/head and neck CT angiography protocol performed with intravenous contrast. This CT exam was performed using one or more of the following dose reduction techniques: automated exposure control, adjustment of the mA and/or kV according to patient size, and/or use of iterative reconstruction technique. This report was created using [employer] report [employer] technology. MIP reconstructed images were created and reviewed. CONTRAST: IV 100mL [id number] COMPARISON: None. FINDINGS: HEAD: RIGHT ANTERIOR CEREBRAL ARTERY: Unremarkable. No significant stenosis at the visualized segments. Anterior communicating artery is present. No aneurysm. RIGHT MIDDLE CEREBRAL ARTERY: Unremarkable. No significant stenosis at the visualized segments. No aneurysm. RIGHT POSTERIOR CEREBRAL ARTERY: Unremarkable. No occlusion or significant stenosis. No aneurysm. LEFT ANTERIOR CEREBRAL ARTERY: Unremarkable. No significant stenosis at the visualized segments. No aneurysm. LEFT MIDDLE CEREBRAL ARTERY: Unremarkable. No significant stenosis at the visualized segments. No aneurysm. LEFT POSTERIOR CEREBRAL ARTERY: Unremarkable. No occlusion or significant stenosis. No aneurysm. BASILAR ARTERY: Unremarkable. No significant stenosis. No aneurysm. GREAT VESSELS OF AORTIC ARCH: Unremarkable. Normal anatomy, patent. OTHER VASCULATURE: No vascular malformation. NECK: RIGHT COMMON CAROTID ARTERY: Unremarkable. No significant stenosis. No dissection or occlusion. RIGHT INTERNAL CAROTID ARTERY: Unremarkable. No significant stenosis. No dissection or occlusion. RIGHT EXTERNAL CAROTID ARTERY: Unremarkable. No occlusion. RIGHT VERTEBRAL ARTERY: Unremarkable. No significant stenosis. No dissection or occlusion. LEFT COMMON CAROTID ARTERY: Unremarkable. No significant stenosis. No dissection or occlusion. LEFT INTERNAL CAROTID ARTERY: There are no acute findings of the right and left internal carotid artery. ALL ABOVE CRITERIA BY NASCET. No significant stenosis. No dissection or occlusion. LEFT EXTERNAL CAROTID ARTERY: Unremarkable. No occlusion. LEFT VERTEBRAL ARTERY: Unremarkable. No significant stenosis. No dissection or occlusion. LUNG APICES: Unremarkable as visualized. SOFT TISSUES: Unremarkable. OTHER FINDINGS: There are no acute findings of the [place] without a demonstrated aneurysm or hemodynamically significant stenosis. ALL ABOVE CRITERIA BY NASCET. CAROTID STENOSIS REFERENCE USING NASCET CRITERIA: % ICA stenosis = (1 - narrowest ICA diameter/diameter of distal cervical ICA) x 100. Mild - <50% stenosis. Moderate - 50-69% stenosis. Severe - 70-94% stenosis. Near occlusion - 95-99% stenosis. Occluded - 100% stenosis. CT/STROKE CTA Head AND Neck W/Con IMPRESSION: 1. There are no acute findings of the right and left internal carotid artery. ALL ABOVE CRITERIA BY NASCET. 2. There are no acute findings of the [place] without a demonstrated aneurysm or hemodynamically significant stenosis. ALL ABOVE CRITERIA BY NASCET. Electronically Signed: Keanu Ovalle MD at 19:17 EST ,
--- NOTE | 2021-09-11 17:59 | CT_ITS ---
STUDY: CT Spine Cervical W/O Contrast Injection 09/11/2021 6:56 PM REASON FOR EXAM: Female, 45 years old. NECK PAIN DIZZINESS,LT ARM PAIN AND NUMBNESS TECHNIQUE: High resolution transaxial imaging was performed without intravenous administration of contrast material. Sagittal and coronal images were reconstructed. Individualized dose optimization techniques were used for this CT. COMPARISON: MRI 2.15 FINDINGS: Normal craniovertebral junction. Normal anterior atlantoaxial articulation. Normal odontoid process. There is straightening of the normal cervical lordosis. Normal vertebral bodies and posterior osseous elements. C2-3: Normal endplates. Normal disc height and morphology. Normal central canal and intervertebral neuroforamina. C3-4: Normal endplates. Normal disc height and morphology. Normal central canal and intervertebral neuroforamina. Partial ankylosis in the posterior aspect of the C3 and C4 vertebral bodies. C4-5: Loss of intervertebral disc height. There is endplate spondylosis of the vertebral body. Normal central canal and intervertebral neuroforamina. There is bilateral facet arthropathy. C5-6: Loss of intervertebral disc height. There is endplate spondylosis of the vertebral body. There is a right posterior paramedian disc protrusion. There is bilateral facet arthropathy. C6-7: Loss of intervertebral disc height. There is endplate spondylosis of the vertebral body. Small central disc bulge. There is bilateral facet arthropathy. C7-T1: Normal endplates. Normal disc height and morphology. Normal central canal and intervertebral neuroforamina. Normal visualized soft tissue structures. IMPRESSION: (NOT LISTED IN ORDER OF SIGNIFICANCE) There is altered curvature of the normal cervical lordosis. This can suggest neck strain. C5-6: There is a right posterior paramedian disc protrusion. Electronically Signed: Keanu Ovalle MD at 19:01 EST Reading Location ID and State: [facility] / [place] , Service support , CT/Spine Cervical without Contras
[2021-09-11 18:17] LABS: Magnesium 2.2 mg/dL (1.6-2.6)
--- NOTE | 2021-09-11 19:45 | ECHOD_ITS ---
Version 2 Reason For Study: CVA Procedure This was a 2D Doppler, Color Flow transthoracic echocardiogram. Bubble study performed. Exam performed portable in patient room. Left Ventricle Normal LV size. Left ventricular systolic function is normal. The estimated ejection fraction is 60 %. No evidence for diastolic dysfunction. No regional wall motion abnormalities noted. Right Ventricle Normal RV size. Normal systolic function. Atria Normal left atrium. Normal right atrium. Faintly positive agitated saline contrast study for right to left interatrial shunt compatible with a small PFO versus ASD. Mitral Valve There is no mitral annular calcification. Anterior leaflet diffuse mitral valve thickening. Trivial mitral valve insufficiency. Tricuspid Valve Normal tricuspid valve. Trivial tricuspid valve insufficiency. Right ventricular systolic pressure estimated to be 23 mmHg. Aortic Valve Trisinus/trileaflet aortic valve. Normal aortic valve. Pulmonic Valve The pulmonic valve is not well visualized. Great Vessels The aortic root is not well visualized. Pericardium/Pleural No pericardial effusion. Medication Performed a rapid injection of agitated mix of 9 cc saline and 1cc air to assess for atrial septal defect. MMode/2D Measurements & Calculations LVIDd: 5.1 cm IVSd: 0.73 cm LA dimension: 3.1 cm LVIDs: 3.0 cm LVPWd: 0.82 cm RVDd: 3.3 cm FS: 40.6 % LAV(MOD-bp): 50.9 ml LA A4 area: 15.2 cm2 RA A4 area: 12.9 cm2 LAV(MOD-bp) Indexed: 28.0 ml/m2 LAV(MOD-sp2): 51.1 ml LAV(MOD-sp4): 40.7 ml Time Measurements MV dec time: 0.21 sec Doppler Measurements & Calculations MV E max kal: 100.4 cm/sec Lat Peak E' Kal: 12.5 cm/sec Med Peak E' Kal: 10.8 cm/sec MV A max kal: 71.0 cm/sec E/E' lat: 8.1 E/E' med: 9.3 MV E/A: 1.4 MV V2 max: 93.7 cm/sec MV P1/2t max kla: 93.7 cm/sec Ao V2 max: 132.9 cm/sec MV max P.5 mmHg MV P1/2t: 101.4 msec Ao max P.1 mmHg MV V2 mean: 55.7 cm/sec MV dec slope: 270.8 cm/sec2 MV mean P.5 mmHg MV V2 VTI: 32.5 cm MVA(P1/2t): 2.2 cm2 LV V1 max: 108.0 cm/sec PA V2 max: 60.2 cm/sec TR max kal: 191.7 cm/sec LV V1 max P.7 mmHg TR max P.7 mmHg ECHO/Echo Complete Interpretation Summary Left ventricular systolic function is normal. The estimated ejection fraction is 60 %. Anterior leaflet diffuse mitral valve thickening. Trivial mitral valve insufficiency. Trivial tricuspid valve insufficiency. Right ventricular systolic pressure estimated to be 23 mmHg. No evidence for diastolic dysfunction. Faintly positive agitated saline contrast study for right to left interatrial s veloz compatible with a small PFO versus ASD. Ordering Physician: Marina Victor Referring Physician: Philip Waddell Performed By: Alexis Cheatham RCS
--- NOTE | 2021-09-11 20:00 | NURSING ---
Pt reports facial paralysis is at baseline, however the decreased sensation is new today. Decreased sensation noted to left face, arm, and leg.
[2021-09-11] MEDS: Acetaminophen 325 MG Tablet 650 MG PO (20:42)
[2021-09-11] MEDS: 0.9% Normal Saline 1,000 ML 125 ML IV (20:44)
[2021-09-11] MEDS: Atorvastatin Calcium 80 MG Tablet PO (21:20)
[2021-09-12] VITALS (12 sets, daily range): BP systolic 93–116; BP diastolic 51–78; PULSE 50–73; RESP 14–18; TEMP 36.5–37.2; O2SAT 97–100
[2021-09-12] MEDS: Meclizine HCl 25 MG Tablet PO ×3 (04:02→14:06)
[2021-09-12] MEDS: 0.9% Normal Saline 1,000 ML 125 ML IV ×3 (04:02→22:48)
[2021-09-12] MEDS: Acetaminophen 325 MG Tablet 650 MG PO ×3 (04:02→14:06)
[2021-09-12] MEDS: 0.9% Saline Lock 10 ML Syringe IV (04:04)
[2021-09-12 06:07] LABS: Absolute Lymphocyte Count 2.26 X10^3/uL (0.83-4.51); Absolute Neutrophil Count 2.1 X10^3/uL (2.0-7.7); Basophil# 0.07 X10^3/uL; Basophil% 1.4 % (0-1); Eosinophil# 0.21 X10^3/uL; Eosinophils% 4.1 % (0-5); Hematocrit 36.1 % (37-47); Hemoglobin 11.8 g/dL (12.0-15.0); Lymphocyte # 2.26 X10^3/ul (0.83-4.51); Lymphocyte % 43.7 % (19-41); Mean Corp Hgb Conc 32.7 g/dL (32-36); Mean Corpuscular Hgb 30.5 pg (27.0-32.0); Mean Corpuscular Volume 93.3 fL (81-99); Mean Platelet Vol. 12.3 fl (6.2-12.0); Monocyte# 0.49 X10^3/uL; Monocyte% 9.5 % (0-10); NRBC Flagged by Analyzer 0 % (0-5); Neutrophil # 2.13 X10^3/uL (2.7-7.7); Neutrophil % 41.1 % (47-70); POSITIVE MORPHOLOGY YES; Platelet Count 186 K/mm3 (150-450); RBC Distribution Width CV 12.3 % (11.6-14.6); RBC Distribution Width SD 42.5 fl (35.1-43.9); Red Blood Count 3.87 M/mm3 (4.2-5.4); White Blood Count 5.2 K/mm3 (4.4-11.0)
[2021-09-12 06:17] LABS: Differential Indicated SCAN CRITERIA MET
[2021-09-12 06:40] LABS: Atypical Lymphocyte 1+ %
[2021-09-12 06:52] LABS: Albumin, Serum 2.9 g/dL (3.2-5.0); BUN 8 mg/dL (7-18); BUN/Creat Ratio 12.2 RATIO (10-20); Creatinine, Serum 0.66 mg/dL (0.55-1.02); EST Glomerular Filtration Rate 103 mL/min (>60); Est Glom Filt Rate - Afr Amer 124 mL/min (>60); Estimated Creatinine Clearance 107.44 ml/min; Globulin 2.7 g/dL (2.2-4.2); Glucose 84 mg/dL (74-106); Protein, Total 5.6 g/dL (6.4-8.2)
[2021-09-12 06:53] LABS: ALB/GLOB Ratio 1.1 RATIO (0.9-2.4); AST(SGOT) 7 U/L (15-37); Alanine Aminotransfer ALT/SGPT 11 U/L (13-56); Alkaline Phosphatase 53 U/L (45-117); Anion Gap 5 (5-15); Calcium,Total 7.9 mg/dL (8.5-10.1); Chloride 113 mmol/L (98-107); Cholesterol 151 mg/dL (200); High Density Lipoprotein 42 mg/dL; Potassium 3.5 mmol/L (3.5-5.1); Sodium Level 142 mmol/L (136-145); Thyroid Stim Hormone (TSH) 1.45 uIU/mL (0.358-3.74); Triglycerides 71 mg/dL; Very Low Density Lipoprotein 14 mg/dL (5-40)
[2021-09-12 07:26] LABS: Hemoglobin A1c 5.1 % (3.8-5.6)
--- NOTE | 2021-09-12 09:00 | MRI_ITS ---
STUDY: MRI BRAIN WITH AND WITHOUT CONTRAST REASON FOR EXAM: Female, 45 years old. CVA TECHNIQUE: Standardized multiplanar fat and water weighted pulse sequences were obtained. IV Yes YES was administered for the contrast portion of the examination. COMPARISON: None. FINDINGS: Normal size of the ventricles and extra-axial spaces for the patient''s age. Normal white matter tracts of the supratentorial brain. There is no evidence for recent intracranial ischemia or other cause of cytotoxic edema on diffusion weighted imaging (DWI). Normal T2* images of the brain without demonstrated susceptibility artifact. There is no demonstrated hemosiderin stain. Healed right temporoparietal craniotomy with some subjacent encephalomalacia and gliosis in the right temporal lobe. Normal bilateral basal ganglia. Normal thalami. There is no extra-axial fluid accumulation. Normal flow voids within the major intracranial circulation suggesting patency by spin echo criteria. Normal venous enhancement. There is no enhancing intra-axial or extra-axial abnormality. Normal sella turcica, pituitary gland, infundibular stalk, optic chiasm and hypothalamus. Normal tectal plate and pineal gland. Normal midbrain, lashonda and medulla. Normal cerebellum. Normal basal cisterns. 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 Normal bilateral internal auditory canals. No demonstrated orbital abnormality, within the constraints of a routine brain study. Normal visualized paranasal sinuses. Normal calvarium and skull base. Normal visualized soft tissue structures. Normal visualized upper cervical spine. MRI/Brain W/WO Contrast IMPRESSION: Post surgical changes. No acute infarct. Electronically Signed: Harry Mena MD at 12:11 EST ,
[2021-09-12] MEDS: Enoxaparin 40 MG/0.4 ML Syringe SC (09:19)
[2021-09-12] MEDS: Aspirin 81 MG TAB.CHEW PO (09:19)
[2021-09-12] MEDS: LORazepam 2 MG/ML Syringe 1 MG IV (09:50)
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
[2021-09-12] MEDS: Ketorolac 30 MG/ML Syringe IV (15:02)
[2021-09-12] MEDS: DiphenhydrAMINE 50 MG/ML Syringe 25 MG IV (15:02)
[2021-09-12] MEDS: proCHLORPERazine 10 MG/2 ML Vial IV (15:02)
[2021-09-12] MEDS: Atorvastatin Calcium 80 MG Tablet PO (20:17)
[2021-09-13] VITALS (7 sets, daily range): BP systolic 103–128; BP diastolic 51–68; PULSE 60–71; RESP 16–18; TEMP 36.7–37.1; O2SAT 96–100
[2021-09-13] MEDS: Acetaminophen 325 MG Tablet 650 MG PO (02:41)
[2021-09-13 05:50] LABS: Absolute Lymphocyte Count 1.67 X10^3/uL (0.83-4.51); Absolute Neutrophil Count 5.2 X10^3/uL (2.0-7.7); Basophil# 0.05 X10^3/uL; Basophil% 0.6 % (0-1); Eosinophils% 1.3 % (0-5); Hematocrit 36.3 % (37-47); Hemoglobin 11.9 g/dL (12.0-15.0); Lymphocyte # 1.67 X10^3/ul (0.83-4.51); Lymphocyte % 21.5 % (19-41); Mean Corp Hgb Conc 32.8 g/dL (32-36); Mean Corpuscular Hgb 30.5 pg (27.0-32.0); Mean Corpuscular Volume 93.1 fL (81-99); Mean Platelet Vol. 12.3 fl (6.2-12.0); Monocyte# 0.71 X10^3/uL; Monocyte% 9.2 % (0-10); NRBC Flagged by Analyzer 0 % (0-5); Neutrophil % 67.1 % (47-70); Platelet Count 180 K/mm3 (150-450); RBC Distribution Width CV 12.3 % (11.6-14.6); RBC Distribution Width SD 42.1 fl (35.1-43.9); White Blood Count 7.8 K/mm3 (4.4-11.0)
[2021-09-13 06:23] LABS: Anion Gap 4 (5-15); BUN 11 mg/dL (7-18); BUN/Creat Ratio 13.9 RATIO (10-20); Calcium,Total 8.3 mg/dL (8.5-10.1); Chloride 117 mmol/L (98-107); Creatinine, Serum 0.79 mg/dL (0.55-1.02); EST Glomerular Filtration Rate 83 mL/min (>60); Est Glom Filt Rate - Afr Amer 100 mL/min (>60); Estimated Creatinine Clearance 89.76 ml/min; Glucose 84 mg/dL (74-106); Sodium Level 144 mmol/L (136-145)
[2021-09-13] MEDS: 0.9% Normal Saline 1,000 ML 125 ML IV (06:39)
[2021-09-13] MEDS: Meclizine HCl 25 MG Tablet PO (08:01)
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
--- NOTE | 2021-09-13 11:26 | PCM.DC ---
Discharge Instructions Diet Discharge Diet: Low fat / Low cholesterol Activity Discharge Activity: Return to Normal Activity Weight Bearing Status: Weight bearing as tolerated Dressing / Incision Call your doctor if you observe: Fever of 101 or Higher, Shortness of breath, Dizziness, Swelling in the ankles, Chest pain and Increased palpitations (irregular heartbeat) Follow Up Care Test Results: Test results from this visit will be discussed in further detail at your follow-up appointment, if applicable. Discharge Plan Admission Admit Date/Time: 09/11/21 17:51 Primary Reason for Your Visit: headache Attending Provider: Yaz Muro Primary Care Provider: Philip Waddell Instructions Patient Instructions: Headache Migraine Stages Tx, Headache Migraine Triggers Prevent, Headache Migraine Meds Lifestyle Discharge Orders/Prescriptions Prescriptions: New meclizine 25 mg Tablet 25 mg PO 4X/DAY PRN PRN (Reason: vertigo) Qty: 120 RF: 1 acetaminophen [Tylenol 8 Hour] 650 mg tablet extended release 650 mg PO Q8H PRN (Reason: headache) Qty: 30 RF: 0 No Action NK RF: 0 Referrals / Follow Up: Philip Waddell MD [Primary Care Provider] - Within 2 Weeks Jim Mcok MD [NON-STAFF] - Within 2 Weeks Disposition Disposition (needs filled in before D/C Order can be placed): Home, Self Care
== END 2021-09-13 11:26 | disposition home or self-care (01) ==
LOC: ED 17:05 → PCU 18:07
PROVIDERS: Admitting Provider Family Medicine; Emergency Provider Emergency Medicine; PCP Internal Medicine; Visit Provider Student in an Organized Health Care Education/Training Program
DX: R42 Dizziness and giddiness (principal); R20.0 Anesthesia of skin; F17.210 Nicotine dependence, cigarettes, uncomplicated; R20.2 Paresthesia of skin; R51.9 Headache, unspecified; M50.122 Cervical disc disorder at C5-C6 level with radiculopathy; G51.0 Bell's palsy
CPT/HCPCS: 36415; 70450; 70496; 70498; 70553; 72125; 80048; 80053; 80061; 83036; 83735; 84443; 85025; 92523; 93005; 93306; 94762; 96361; 96365; 96372; 96375; 97161; 97165; 97802; 99218; 99285; 99406; A9575; J7030; Q9957; Q9967; A4216; G0378; J3475

== ENCOUNTER 2021-10-02 17:00 | Outpatient (CLI) | payer BC, SELFPAY ==
--- NOTE | 2021-10-02 16:20 | BI_ITS ---
MAMMOGRAPHY - BILATERAL SCREENING 3-D TOMOSYNTHESIS REASON FOR EXAM: Female, 45 years old. Breast Cancer Screening PERTINENT HISTORY: No significant family history. TECHNIQUE: 2-D mammograms and 3-D Tomosynthesis of the breast (s) were performed. CAD was performed. COMPARISON: 09/09/2017 FINDINGS: The breast composition is heterogeneously dense that can obscure small breast masses. Scattered benign calcifications are seen. No dense spiculated masses or suspicious microcalcifications are identified. No architectural distortion is identified. There is no skin thickening or retraction. There has been no significant change since the prior study. BI/SCRN MAMM (CAD)W/MIYA BILAT IMPRESSION: No mammographic signs of malignancy. Routine yearly mammograms recommended. ASSESSMENT CATEGORY: BIRADS Category 1: Negative. A letter regarding these results will be sent to the patient by the facility within 30 days. FOLLOW UP RECOMMENDATION: Yearly follow up mammogram recommended. (A) Approximately 10% of breast cancers are not detected by mammography. A normal mammogram should not delay biopsy of a clinically suspicious abnormality. Electronically Signed: Harry Mena MD at 18:03 EDT ,
== END 2021-10-02 23:59 | disposition home or self-care (01) ==
LOC: OPBI 10-03 07:47
PROVIDERS: PCP Internal Medicine; Referring Provider Internal Medicine; Visit Provider Internal Medicine
DX: Z12.31 Encounter for screening mammogram for malignant neoplasm of breast (principal)
CPT/HCPCS: 77063; 77067

== ENCOUNTER 2021-10-09 19:10 | Outpatient (CLI) | payer BC, SELFPAY ==
--- NOTE | 2021-10-09 19:08 | CT_ITS ---
INDICATION: Abdominal Pain EXAMINATION: CT Abdomen And Pelvis W/ Contrast Injection TECHNIQUE: Helically acquired images were obtained of the abdomen and pelvis after IV contrast. A radiation dose optimization technique was used for this scan. IV Contrast dosage and agent: IV 100mL [id number]-300 Oral contrast: None. COMPARISON: 07/13/2021. FINDINGS: Visualized lung bases: Unremarkable Liver: Multiple hepatic cysts. Gallbladder: Surgically absent. Spleen: Unremarkable Pancreas: Unremarkable Adrenal Glands: Unremarkable Kidneys: Unremarkable Vasculature: Unremarkable GI Tract: Scattered colonic diverticula. There is mild circumferential wall thickening of the ascending colon. Large amount of gastric content within the stomach. Lymphadenopathy: None Peritoneum: No ascites. Bladder: Unremarkable Reproductive organs: Unremarkable Bones/Soft tissues: Mild scattered degenerative changes of the visualized spine. CT/Abdomen/Pelvis WITH Contrast IMPRESSION: Possible mild or early acute ascending colon diverticulitis. No focal fluid collection or free air. Electronically Signed: Carmelo Marte MD at 0:04 EDT ,
== END 2021-10-09 23:59 | disposition home or self-care (01) ==
LOC: CT 19:11
PROVIDERS: PCP Internal Medicine; Referring Provider Internal Medicine; Visit Provider Internal Medicine
DX: R10.9 Unspecified abdominal pain (principal)
CPT/HCPCS: 74177; Q9967

== ENCOUNTER 2021-10-13 08:05 | Outpatient (CLI) | payer BC, SELFPAY | END 2021-10-13 23:59 | disposition home or self-care (01) | LOC: MRI 08:06 | PROVIDERS: PCP Internal Medicine; Referring Provider Orthopaedic Surgery; Visit Provider Orthopaedic Surgery | DX: Z00.00 Encounter for general adult medical examination without abnormal findings (principal) ==

== ENCOUNTER → 2021-12-24 | Outpatient (CLI) | payer BC, SELFPAY ==
--- NOTE | 2021-12-24 09:05 | STRESSREP_ITS ---
Stress Test Report Date: 12-24-2021 Procedure: Exercise tolerance test/imaging study Indications: Chest pain; palpitations; fatigue; abnormal transthoracic echocar diogram Consent: Per the patient Procedure: The patient exercised on a Jarrett protocol for 10 minutes completing Stage III and 1 minute of Stage IV achieving a peak heart rate of 160 bpm (92% predicted maximal heart rate) with a peak blood pressure 144/60 mmHg and a peak MET capacity of 13 METs. The baseline ECG demonstrated sinus bradycardia. The peak exercise ECG demonstrated no obvious ECG changes. There were no cardiac dysrhythmias pretest, during exercise, or recovery. The functional capacity was considered good. There was mild chest discomfort at peak exercise. The examination was discontinued secondary to mild chest discomfort. Impression: 1. Technically adequate (percent predicted maximal heart rate greater than 85%) exercise tolerance test 2. Peak exercise ECG with no obvious ECG changes 3. There were no cardiac dysrhythmias pretest, during exercise, or recovery 4. Nuclear images pending Myocardial perfusion imaging study: Technique: The patient was injected with 12.0 mCi of technetium 99m Cardiolite and subsequently rest SPECT Cardiolite nuclear imaging was obtained in the horizontal long, vertical long, and short axis views. The patient exercised on a Jarrett protocol for 10 minutes completing Stage III and 1 minute of Stage IV achieving a peak heart rate of 160 bpm (92% predicted maximal heart rate) with a peak blood pressure 144/60 mmHg and a peak MET capacity of 13 METs. The patient was injected with 34.7 mCi of technetium 99m Cardiolite and subsequently stress SPECT Cardiolite nuclear imaging was obtained in the horizontal long, vertical long, and short axis views. A gated Cardiolite study at peak stress was obtained. Interpretation: Rest and stress SPECT Cardiolite nuclear imaging status post realignment, normalization, and attenuation correction, demonstrates the appearance of a small area of subtle diminished tracer uptake in the apical areas without significant change between rest and stress. There is end systolic thickening a nd brightening. The gated Cardiolite study demonstrates myocardial thickening and inward wall motion. The reported LVEF is 62%. Impression: 1. Rest and stress SPECT Cardiolite nuclear imaging demonstrate myocardial perfusion changes appearing compatible with physiologic apical thinning with no myocardial perfusion changes considered diagnostic for associated stress-induced myocardial ischemia. 2. The gated Cardiolite study reports an LVEF of 62%. This note was generated with Dragon dictation software. It may contain incorrect words, spelling, and punctuation that were not noted in checking the note before signing.
== END | disposition home or self-care (01) ==
LOC: CVS 07:16
PROVIDERS: PCP Internal Medicine; Referring Provider Internal Medicine Cardiovascular Disease; Visit Provider Internal Medicine Cardiovascular Disease
DX: R53.83 Other fatigue (principal); R93.1 Abnormal findings on diagnostic imaging of heart and coronary circulation; R00.2 Palpitations; R07.9 Chest pain, unspecified
CPT/HCPCS: 78452; 93017; A9500; A4216

== ENCOUNTER 2021-12-31 12:38 | Day surgery (SDC) | payer BC, SELFPAY ==
[2021-12-31] VITALS (8 sets, daily range): BP systolic 107–117; BP diastolic 64–72; PULSE 57–84; RESP 14–18; TEMP 36.4–36.7; O2SAT 100; BMI 22.7
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
[2021-12-31] MEDS: Lactated Ringers 1,000 ML 15 ML IV (13:18)
--- NOTE | 2021-12-31 14:30 | COLBX_PTH ---
PATIENT: PHILIP CURRY LOC: [facility] U#:[id number] AGE/SX: 46/F ROOM: RE12/31/[address]: Dr. Fern Malave MD : 1975 BED: DIS: 12/31/2021 SPEC #: [id number] RECD: 12/31/21 14:57 STATUS: ADNNY KINZA #: [id number] JEANNETTE: 12/31/21 14:[address]: Fern Malave DEPT: SURGICAL PATHOLOGY RECD BY: Amy Currie ENTERED: 01/01/22 11:58 SP TYPE: COLON BX OTHR DR: Dr. Philip Waddell MD Tissues: A - Gastric mucous membrane B - Gastric mucous membrane C - Descending colon Procedures: Special Stain Group II Surgery Specimen Level IV Alcian Blue/PAS (control) HEADER OPERATION: Colonoscopy, [place] [place] PRE-OP DIAGNOSIS: Constipation, bilateral lower abdominal pain TISSUE SUBMITTED: A ? Antrum biopsy for histo and H. pylori, B ? Gastroesophageal junction biopsy, C ? Descending polyp biopsy MICROSCOPIC DIAGNOSIS A. Antrum, biopsy: Mild gastritis. See microscopic description and comment. B. Gastroesophageal junction, biopsy: A fragment of gastric mucosa with chronic inflammation. Intestinal metaplasia (goblet cell metaplasia) not identified. C. Descending colon polyp, biopsy: Fragments of colonic mucosa, no pathologic diagnosis. SJ:kacie 01/02/2022 COMMENT A. The results of immunohistochemistry for Helicobacter pylori will be reported separately ([id number]). MICROSCOPIC DESCRIPTION Slides are reviewed. A. The specimen shows fragments of gastric mucosa with chronic inflammatory cell infiltrates in the lamina propria consisting of lymphocytes and plasma cells, consistent with mild chronic gastritis. GROSS DESCRIPTION A - Received in fixative is one container labeled with the patient's name and designated antrum biopsy. The specimen consists of one irregular fragment of light conway soft tissue that measures 0.3 x 0.3 x 0.1 cm. The specimen is totally submitted in one cassette. B - Received in fixative is one container labeled with the patient's name and designated GE junction biopsy. The specimen consists of one irregular fragment of light conway soft tissue that measures 0.3 x 0.3 x 0.1 cm. The specimen is totally submitted in one cassette. C - Received in fixative is one container labeled with the patient's name and designated descending polyp biopsy. The specimen consists of two irregular fragments of light conway soft tissue that in aggregate measure 0.6 x 0.3 x 0.1 cm. The specimen is totally submitted in one cassette. / SJ:kacie 01/01/2022 TC:3 CPT: 53491 x3, 90263
--- NOTE | 2021-12-31 14:30 | IMM_PTH ---
PATIENT: PHILIP CURRY LOC: [facility] U#:[id number] AGE/SX: 46/F ROOM: RE12/31/[address]: Dr. Fern Malave MD : 1975 BED: DIS: 12/31/2021 SPEC #: [id number] RECD: 01/01/22 13:25 STATUS: DANNY REQ #: [id number] JEANNETTE: 12/31/21 14:[address]: Fern Malave DEPT: IMMUNOHISTOCHEMISTRY RECD BY: Zuly Ludwig ENTERED: 01/01/22 13:26 SP TYPE: IMMUNO OTHR DR: Dr. Philip Waddell MD Tissues: A - Stomach, NOS Procedures: H Pylori (initial) PHYSICIAN & INSTITUTION [place] [id number] SPECIMEN INFORMATION: Tissue Source: A ? Antrum biopsy Clinical Info: Constipation, bilateral lower abdominal pain Specimen Number: [id number] CPT code: 05677 METHODOLOGY: Deparaffinized sections of prefer/formalin-fixed tissue or PAP/DQ stained slides are incubated with monoclonal/polyclonal antibodies/oligonucleotide probes. Localization is made via biotin free immunoperoxidase method. Appropriate controls are performed and reacted as expected. Results on target cell population are indicated in the following table: RESULTS: ANTIBODY / CLONE RESULT Block A H Pylori (polyclonal) negative These tests were developed and their performance characteristics determined by [facility]. They may not have been cleared or approved by the U.S. Food and Drug Administration. The FDA has determined that such clearance or approval is not necessary. The above immunohistochemical/dualISH markers are ordered and reviewed by the Pathologist. INTERPRETATION: A. Antrum, biopsy: Negative for Helicobacter pylori organisms. SJ:kacie 01/02/2022
--- NOTE | 2021-12-31 14:44 | OP.COLON_ITS ---
Patient Name: Sasha Mata Procedure Date: 12/31/2021 2:19 PM Date of : 1975 Age: 46 Procedure: Colonoscopy Indications: Abdominal pain in the left lower quadrant, Abdominal pain in the left upper quadrant, Abdominal pain in the right lower quadrant, Rectal bleeding Providers: Fern Malave MD Referring MD: Philip Waddell MD Medicines: Monitored Anesthesia Care Patient Profile: This is a 46 year old female. Last Colonoscopy: none. The patient's first colonoscopy is today. Complications: No immediate complications. Procedure: Pre-Anesthesia Assessment: - Prior to the procedure, a History and Physical was performed, and patient medications and allergies were reviewed. The patient's tolerance of previous anesthesia was also reviewed. The risks and benefits of the procedure and the sedation options and risks were discussed with the patient. All questions were answered, and informed consent was obtained. Prior Anticoagulants: The patient has taken no previous anticoagulant or antiplatelet agents. ASA Grade Assessment: Per anesthesia. After reviewing the risks and benefits, the patient was deemed in satisfactory condition to undergo the procedure. After I obtained informed consent, the scope was passed under direct vision. Throughout the procedure, the patient's blood pressure, pulse, and oxygen saturations were monitored continuously. The pediatric colonoscope was introduced through the anus and advanced to the cecum, identified by the appendiceal orifice, ileocecal valve and palpation. The colonoscopy was performed without difficulty. The patient tolerated the procedure well. The quality of the bowel preparation was good. Scope In: 2:20:04 PM Scope Withdrawal Time 0 hours 9 minutes 54 seconds Scope Out: 2:37:08 PM Total Procedure Duration Time 0 hours 17 minutes 4 seconds Findings: Hemorrhoids were found on perianal exam. Non-bleeding internal hemorrhoids were found. The hemorrhoids were Grade I (internal hemorrhoids that do not prolapse). A less than 5 mm polyp was found in the descending colon. The polyp was sessile. The polyp was removed with a cold biopsy forceps. Resection and retrieval were complete. Multiple small-mouthed diverticula were found in the descending colon, transverse colon and ascending colon. The exam was otherwise without abnormality. Impression: - Hemorrhoids found on perianal exam. - Non-bleeding internal hemorrhoids. - One less than 5 mm polyp in the descending colon, removed with a cold biopsy forceps. Resected and retrieved. - Diverticulosis in the descending colon, in the transverse colon and in the ascending colon. - The examination was otherwise normal. Recommendation: - Discharge patient to home. - High fiber diet. - Continue present medications. - Await pathology results. - Repeat colonoscopy in 3 years for surveillance based on pathology results. Procedure Code(s): --- Professional --- 73859, PT, Colonoscopy, flexible; with biopsy, single or multiple Diagnosis Code(s): --- Professional --- K64.0, First degree hemorrhoids D12.4, Benign neoplasm of descending colon R10.32, Left lower quadrant pain R10.12, Left upper quadrant pain R10.31, Right lower quadrant pain K62.5, Hemorrhage of anus and rectum K57.30, Diverticulosis of large intestine without perforation or abscess without bleeding CPT copyright 2017 [employer]. All rights reserved. The codes documented in this report are preliminary and upon garment mender review may be revised to meet current compliance requirements. MD Fern Watson MD 12/31/2021 2:44:06 PM This report has been signed electronically. Number of Addenda: 0 Note Initiated On: 12/31/2021 2:19 PM
--- NOTE | 2021-12-31 14:45 | OP.CCLET_ITS ---
12/31/2021 Philip Waddell MD [address] [place] [address] [place] [address] Re : Colonoscopy procedure for [facility] Dear Dr. Waddell This procedure was performed on Friday, December 31, 2021. My impressions and recommendations are as follows: Impressions : - Hemorrhoids found on perianal exam. - Non-bleeding internal hemorrhoids. - One less than 5 mm polyp in the descending colon, removed with a cold biopsy forceps. Resected and retrieved. - Diverticulosis in the descending colon, in the transverse colon and in the ascending colon. - The examination was otherwise normal. Recommendations : - Discharge patient to home. - High fiber diet. - Continue present medications. - Await pathology results. - Repeat colonoscopy in 3 years for surveillance based on pathology results. My findings are described in the full procedure note, which is enclosed. If I can be of further assistance, please feel free to contact me at Doctor phone number(s): , Work: . Sincerely, MD Fern Watson MD 12/31/2021 2:44:06 PM This report has been signed electronically.
--- NOTE | 2021-12-31 14:51 | OP.EGD_ITS ---
Patient Name: Sasha Mata Procedure Date: 12/31/2021 2:04 PM Date of : 1975 Age: 46 Procedure: Upper GI endoscopy Indications: Abdominal pain in the left upper quadrant Providers: Fern Malave MD Referring MD: Philip Waddell MD Medicines: Monitored Anesthesia Care Patient Profile: This is a 46 year old female. Complications: No immediate complications. Procedure: Pre-Anesthesia Assessment: - Prior to the procedure, a History and Physical was performed, and patient medications and allergies were reviewed. The patient's tolerance of previous anesthesia was also reviewed. The risks and benefits of the procedure and the sedation options and risks were discussed with the patient. All questions were answered, and informed consent was obtained. Prior Anticoagulants: The patient has taken no previous anticoagulant or antiplatelet agents. ASA Grade Assessment: Per anesthesia. After reviewing the risks and benefits, the patient was deemed in satisfactory condition to undergo the procedure. After obtaining informed consent, the endoscope was passed under direct vision. Throughout the procedure, the patient's blood pressure, pulse, and oxygen saturations were monitored continuously. The pediatric colonoscope was introduced through the mouth, and advanced to the second part of duodenum. The upper GI endoscopy was accomplished without difficulty. The patient tolerated the procedure well. Scope In: 2:11:50 PM Scope Out: 2:18:34 PM Total Procedure Duration Time 0 hours 6 minutes 44 seconds Findings: The Z-line was variable and was found 40 cm from the incisors. Biopsies were taken with a cold forceps for histology. Localized moderately erythematous mucosa without active bleeding and with no stigmata of bleeding was found in the duodenal bulb. Striped moderately erythematous mucosa without bleeding was found in the gastric antrum. Biopsies were taken with a cold forceps for histology. Biopsies were taken with a cold forceps for Helicobacter pylori cultures. The cardia and gastric fundus were normal on retroflexion. Impression: - Z-line variable, 40 cm from the incisors. Biopsied. - Erythematous duodenopathy. - Erythematous mucosa in the antrum. Biopsied. Recommendation: - Await pathology results. - Discharge patient to home. - Resume previous diet. - Continue present medications. - Use Protonix (pantoprazole) 40 mg PO daily. Procedure Code(s): --- Professional --- 38254, Esophagogastroduodenoscopy, flexible, transoral; with biopsy, single or multiple Diagnosis Code(s): --- Professional --- K22.8, Other specified diseases of esophagus K31.89, Other diseases of stomach and duodenum R10.12, Left upper quadrant pain CPT copyright 2017 [employer]. All rights reserved. The codes documented in this report are preliminary and upon ice guard inspector review may be revised to meet current compliance requirements. MD Fern Watson MD 12/31/2021 2:50:53 PM This report has been signed electronically. Number of Addenda: 0 Note Initiated On: 12/31/2021 2:04 PM
--- NOTE | 2021-12-31 14:52 | OP.CCLET_ITS ---
12/31/2021 Phiilp Waddell MD [address] [place] [address] [place] [address] Re : Upper GI endoscopy procedure for [facility] Dear Dr. Waddell This procedure was performed on Friday, December 31, 2021. My impressions and recommendations are as follows: Impressions : - Z-line variable, 40 cm from the incisors. Biopsied. - Erythematous duodenopathy. - Erythematous mucosa in the antrum. Biopsied. Recommendations : - Await pathology results. - Discharge patient to home. - Resume previous diet. - Continue present medications. - Use Protonix (pantoprazole) 40 mg PO daily. My findings are described in the full procedure note, which is enclosed. If I can be of further assistance, please feel free to contact me at Doctor phone number(s): , Work: . Sincerely, MD Fern Watson MD 12/31/2021 2:50:53 PM This report has been signed electronically.
== END 2021-12-31 15:35 | disposition home or self-care (01) ==
LOC: EN 12:42 → AC 12:42
PROVIDERS: PCP Internal Medicine; Referring Provider Internal Medicine; Visit Provider Surgery
PROC: 0DJD8ZZ Inspection of Lower Intestinal Tract, Via Natural or Artificial Opening Endoscopic (ICD-10-PCS; CPT 45378; principal; 2021-12-31 14:25)
DX: K57.30 Diverticulosis of large intestine without perforation or abscess without bleeding (principal); I47.2 Ventricular tachycardia; F17.210 Nicotine dependence, cigarettes, uncomplicated; K22.89 Other specified disease of esophagus; K29.50 Unspecified chronic gastritis without bleeding; K31.89 Other diseases of stomach and duodenum; K63.5 Polyp of colon; K64.4 Residual hemorrhoidal skin tags; K64.0 First degree hemorrhoids; Z79.899 Other long term (current) drug therapy; Z80.0 Family history of malignant neoplasm of digestive organs; Z86.16 Personal history of COVID-19
CPT/HCPCS: 45380; 43239; 88305; 88313; 88342; C9803; J7120; J2405

== ENCOUNTER → 2021-12-31 | Outpatient (CLI) | payer BC, SELFPAY | END | disposition home or self-care (01) | LOC: PSN 12:20 | PROVIDERS: PCP Internal Medicine; Referring Provider Internal Medicine Cardiovascular Disease; Visit Provider Internal Medicine Cardiovascular Disease | DX: Z11.59 Encounter for screening for other viral diseases (principal); Z91.89 Other specified personal risk factors, not elsewhere classified | CPT/HCPCS: 87426; C9803 ==

== ENCOUNTER → 2022-01-01 | Outpatient (CLI) | payer BC, SELFPAY ==
[2021-12-31 13:51] LABS: Anion Gap 1 (5-15); BUN 6 mg/dL (7-18); BUN/Creat Ratio 7.8 RATIO (10-20); Calcium,Total 9.2 mg/dL (8.5-10.1); Chloride 109 mmol/L (98-107); Creatinine, Serum 0.77 mg/dL (0.55-1.02); EST Glomerular Filtration Rate 85 mL/min (>60); Est Glom Filt Rate - Afr Amer 103 mL/min (>60); Glucose 91 mg/dL (74-106); Magnesium 2.1 mg/dL (1.6-2.6); Potassium 4.3 mmol/L (3.5-5.1); Sodium Level 138 mmol/L (136-145)
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
--- NOTE | 2022-01-01 09:55 | ECHOTEE_ITS ---
Reason For Study: SEPTAL DEFECT Medication DEBBIE probe 6VT-D (SN [id number]) passed with minimal difficulty. No complications were noted. Cetacaine Topical Stewart given X2 orally. Versed 0.5 mg given slow IVP. Fentanyl 0.25 mcg given slow IVP. Performed a rapid injection of agitated mix of 9 cc saline and 1cc air to assess for atrial septal defect. Left Ventricle Normal LV size. Left ventricular systolic function is normal. The estimated ejection fraction is 60 %. No regional wall motion abnormalities noted. Right Ventricle Normal RV size. Normal systolic function. Atria Color-flow Doppler and agitated saline contrast study compatible with a very small PFO with bidirectional interatrial shunting. Normal left atrium. There is no sponatenous contrast in the left atrium. No thrombus is detected in the left atrial appendage. Normal right atrium. There is no sponatenous contrast in the right atrium. No right atrial/appendage thrombus identified. Mitral Valve There is no mitral annular calcification. Normal mitral valve. Trivial mitral valve insufficiency. Tricuspid Valve Normal tricuspid valve. Trivial tricuspid valve insufficiency. Aortic Valve Trisinus/trileaflet aortic valve. Normal aortic valve. Pulmonic Valve The pulmonic valve is not well visualized. Vessels Normal appearing thoracic aorta. Pericardium No pericardial effusion. ECHO/Echo Transesophageal (DEBBIE) Interpretation Summary Left ventricular systolic function is normal. The estimated ejection fraction is 60 %. There is no sponatenous contrast in the left atrium. No thrombus is detected in the left atrial appendage. Trivial mitral valve insufficiency. Trivial tricuspid valve insufficiency. Normal appearing thoracic aorta. Color-flow Doppler and agitated saline contrast study compatible with a very sm all PFO with bidirectional interatrial shunting. Ordering Physician: Martínez Shepard Referring Physician: Martínez Shepard Performed By: Alexis Cheatham RCS
== END | disposition home or self-care (01) ==
LOC: CVS 09:53
PROVIDERS: PCP Internal Medicine; Referring Provider Internal Medicine Cardiovascular Disease; Visit Provider Internal Medicine Cardiovascular Disease
DX: R53.83 Other fatigue (principal); R93.1 Abnormal findings on diagnostic imaging of heart and coronary circulation; R00.2 Palpitations; R07.9 Chest pain, unspecified
CPT/HCPCS: 36415; 80048; 83735; 93312; 93320; 93325; C9803; J7040; A4216

== ENCOUNTER → 2022-01-02 | Outpatient (CLI) | payer BC, SELFPAY ==
--- NOTE | 2022-01-02 15:59 | CT_ITS ---
EXAM: CT ANGIOGRAPHY CHEST WITHOUT AND WITH INTRAVENOUS CONTRAST CLINICAL INDICATION: Chest pain, SOB, neg stress test TECHNIQUE: Helically acquired angiography images were obtained of the chest without and with intravenous contrast. This CT exam was performed using one or more of the following dose reduction techniques: automated exposure control, adjustment of the mA and/or kV according to patient size, and/or use of iterative reconstruction technique. This report was created using [employer] report generation technology. MIP reconstructed images were created and reviewed. CONTRAST: IV 75mL Isovue-370 RADIATION DOSE: CTDIvol = 5.01 mGy, DLP = 189.69 mGy-cm COMPARISON: None. FINDINGS: PULMONARY ARTERIES: No demonstrated pulmonary embolism or arterial dissection. AORTA: Unremarkable. Normal in caliber. No evidence of dissection. GREAT VESSELS OF AORTIC ARCH: Unremarkable. Normal in caliber. No evidence of dissection. LUNGS AND PLEURAL SPACES: Unremarkable. No mass. No consolidation or edema. No pleural effusion or thickening. No pneumothorax. HEART: Unremarkable. Heart size is normal. No pericardial effusion. No signs of right heart strain, ratio of right ventricle to left ventricle measures less than 1. MEDIASTINUM: Unremarkable. No mediastinal or hilar adenopathy. Esophagus is unremarkable. No hiatal hernia. THYROID: Unremarkable. No thyroid lesions. BONES/JOINTS: Unremarkable. No suspicious lytic or blastic abnormality. LIVER: 18 mm hypodensity of the right lobe of the liver. ACR White Paper guidelines (Yaritza, et al. JACR 2017; 14(11):9216-0678.) suggest no follow-up is necessary. KIDNEYS AND URETERS: Nonobstructive left renal stones. CT/CTA Chest W/WO Contrast IMPRESSION: No demonstrated pulmonary embolism or arterial dissection. Electronically Signed: Keanu Ovalle MD at 16:45 EDT ,
== END | disposition home or self-care (01) ==
LOC: CT 15:57
PROVIDERS: PCP Internal Medicine; Referring Provider Internal Medicine Cardiovascular Disease; Visit Provider Internal Medicine Cardiovascular Disease
DX: R07.9 Chest pain, unspecified (principal); R06.02 Shortness of breath
CPT/HCPCS: 71275; Q9967; A4216

== ENCOUNTER → 2022-04-17 | Outpatient (CLI) | payer BC, SELFPAY ==
--- NOTE | 2022-04-17 14:30 | CT_ITS ---
STUDY: CT ABDOMEN AND PELVIS WITH CONTRAST REASON FOR EXAM: Female, 46 years old. LLQ pain, bilateral upper quadrant pain, bloating -- oral and iv contrast. PRIOR CHOLECYSTECTOMY RADIATION DOSAGE (If Supplied By Facility): CTDIvol = ( 10.79 ) mGy, DLP = ( 401.07 ) mGycm TECHNIQUE: Transaxial images were obtained from the dome of the diaphragm to the symphysis pubis with oral contrast. Oral and amp; IV Redi-CAT and amp; 100mL Isovue-300 was administered. Sagittal and coronal images were reconstructed. Individualized dose optimization techniques were used for this CT. COMPARISON: 10/09/2021 FINDINGS: The visualized lung bases are unremarkable. The visualized portions of the heart are within normal limits. Multiple small hepatic cysts. There is non-visualization of the gallbladder, which may be secondary to either contraction or a prior cholecystectomy. Normal spleen. Normal pancreas. Normal bilateral adrenal glands. Normal right kidney. Small left renal cyst. Normal visualized stomach. Normal small intestine. Normal colon. The appendix is visualized and appears normal. Normal abdominal aorta. Normal inferior vena cava. Normal retroperitoneum. Normal urinary bladder. 2 cm bladder diverticulum on the right posteriorly. Normal abdominal wall. Normal osseous structures. CT/Abdomen/Pelvis WITH Contrast IMPRESSION: Normal enhanced CT of the abdomen and pelvis. Small bladder diverticulum, likely of no significance. Electronically Signed: Harry Mena MD at 16:30 EDT ,
== END | disposition home or self-care (01) ==
PROVIDERS: PCP Internal Medicine; Referring Provider Surgery; Visit Provider Surgery
DX: R10.11 Right upper quadrant pain (principal); R10.12 Left upper quadrant pain; R10.32 Left lower quadrant pain
CPT/HCPCS: 74177; Q9967; A4216

== ENCOUNTER → 2022-04-30 | Outpatient (CLI) | payer BC, SELFPAY | END | disposition home or self-care (01) | LOC: BIMLAB 14:47 | PROVIDERS: PCP Internal Medicine; Visit Provider Internal Medicine | DX: U07.1 COVID-19 (principal) | CPT/HCPCS: 87635; U0003; U0005 ==

== ENCOUNTER 2022-07-23 21:14 | Emergency (ER) | payer BC, SELFPAY ==
[2022-07-23 21:15] VITALS: BP 138/102; PULSE 88; RESP 18; TEMP 36.4; O2SAT 98; BMI 24.7
--- NOTE | 2022-07-23 21:22 | EKG12_ITS ---
Test Reason : CP Blood Pressure : / mmHG Vent. Rate : 084 BPM Atrial Rate : 084 BPM P-R Int : 156 ms QRS Dur : 090 ms QT Int : 372 ms P-R-T Axes : 078 074 067 degrees QTc Int : 439 ms Normal sinus rhythm with sinus arrhythmia Normal ECG Confirmed by CARMINA THAO, MARLA ([id number]), script editor TONY CAMPBELL ([id number]) on 07/25/2022 9:39:14 AM Referred By: Confirmed By:MARLA GREWAL MD
[2022-07-23 21:43] LABS: Absolute Lymphocyte Count 3.04 X10^3/uL (0.83-4.51); Basophil# 0.07 X10^3/uL; Basophil% 0.9 % (0-1); Eosinophil# 0.19 X10^3/uL; Eosinophils% 2.4 % (0-5); Hematocrit 41.5 % (37-47); Hemoglobin 13.1 g/dL (12.0-15.0); Lymphocyte # 3.04 X10^3/ul (0.83-4.51); Lymphocyte % 38.1 % (19-41); Mean Corp Hgb Conc 31.6 g/dL (32-36); Mean Corpuscular Hgb 30.2 pg (27.0-32.0); Mean Corpuscular Volume 95.6 fL (81-99); Mean Platelet Vol. 11.5 fl (6.2-12.0); Monocyte# 0.69 X10^3/uL; Monocyte% 8.6 % (0-10); NRBC Flagged by Analyzer 0 % (0-5); Neutrophil # 3.96 X10^3/uL (2.7-7.7); Neutrophil % 49.6 % (47-70); Platelet Count 220 K/mm3 (150-450); RBC Distribution Width CV 12.3 % (11.6-14.6); RBC Distribution Width SD 43.2 fl (35.1-43.9); Red Blood Count 4.34 M/mm3 (4.2-5.4)
[2022-07-23 21:52] VITALS: BP 114/61; PULSE 77; RESP 16; O2SAT 100; O2SAT 99
--- NOTE | 2022-07-23 22:02 | RAD_ITS ---
EXAM: XR CHEST, 1 VIEW CLINICAL INDICATION: chest pain TECHNIQUE: Frontal view of the chest. This report was created using [employer] report generation technology. COMPARISON: 04/09/2021 FINDINGS: LUNGS AND PLEURAL SPACES: Unremarkable. No consolidation or edema. No pneumothorax. No effusion. HEART: Unremarkable. Cardiac silhouette not enlarged. MEDIASTINUM: Central airways and mediastinal contour are unremarkable. BONES/JOINTS: Unremarkable. SOFT TISSUES: Unremarkable. RAD/Chest 1 View (Portable) IMPRESSION: No radiographic evidence of acute cardiopulmonary disease. Electronically Signed: Robin Melendez MD at 22:32 EST ,
[2022-07-23 22:03] LABS: Anion Gap 6 (5-15); BUN 14 mg/dL (7-18); BUN/Creat Ratio 17.9 RATIO (10-20); Calcium,Total 9.3 mg/dL (8.5-10.1); Chloride 110 mmol/L (98-107); Creatinine, Serum 0.78 mg/dL (0.55-1.02); EST Glomerular Filtration Rate 84 mL/min (>60); Est Glom Filt Rate - Afr Amer 101 mL/min (>60); Estimated Creatinine Clearance 89.94 ml/min; Glucose 99 mg/dL (74-106); Potassium 3.8 mmol/L (3.5-5.1); Sodium Level 141 mmol/L (136-145); Troponin-I HS < 3 pg/mL (3.0-54.0)
--- NOTE | 2022-07-23 22:39 | EDS_ITS ---
HPI <SHAYNE Murillo - Last Filed: 07/23/22 23:06> History of Present Illness Chief Complaint: Chest Pain Narrative Narrative: Patient presents today with constant midsternal chest tightness and chest pressure that she began having at 7 PM today. Patient does have a history of chest pain and has been worked up with Dr. Shepard for this as well as heart palpitations that she had experienced in the past. She denies a personal and family history of cardiac events. She does not have hypertension, hyperlipidemia, or diabetes mellitus. She denies a history of blood clots. Patient states she is also beginning to have a migraine which she has a history of. She has pain behind her left eye, pain in her neck and shoulders, and is starting to have some photophobia. Patient states the pain in her neck and shoulders is abnormal for her. She denies nausea and vomiting. PFSH <SHAYNE Murillo - Last Filed: 07/23/22 23:06> [facility] Medical History Abdominal pain Abnormal echocardiogram Abnormal echocardiogram Arthritis Cardiology follow-up encounter Cervical radiculopathy Cough COVID-19 Depression Easy bruising Fatigue Focal seizure Health care maintenance History of COVID-19 History of depression History of echocardiogram History of edema History of IBS History of stress test Kidney stones Loose, teeth Malaise and fatigue Migraine headache NSVT (nonsustained ventricular tachycardia) Palpitations PONV (postoperative nausea and vomiting) Premature ventricular contraction Seizures Smoker Vertigo Wears glasses Home Medications sumatriptan succinate 25 mg tablet See Rx Instructions PO .COMPLEX #14 tabs 09/17/21 [Rx Last Taken Unknown] multivitamin 1 tab PO DAILY 10/01/21 [History Last Taken Unknown] ibuprofen 400 mg tablet 400 mg PO Q8H PRN Pain 11/30/21 [History Last Taken Unknown] metoprolol succinate 25 mg tablet,extended release 24 hr 25 mg PO DAILY #30 tabs 12/26/21 [Rx Last Taken 12/31/21] sucralfate 1 gram tablet 1 g PO QACHS #60 tabs 04/10/22 [Rx Last Taken Unknown] pantoprazole 40 mg tablet,delayed release 40 mg PO DAILY #30 tabs 06/18/22 [Rx Last Taken Unknown] Allergy/AdvReac Type Severity Reaction Status Date / Time doxycycline AdvReac Vomiting/di Verified 07/23/22 21:16 arrhea Family History Father Heart disease Colon cancer Grandmother Breast cancer Unknown Heart disease Grandfather CVA (cerebral vascular accident) Mother Hypertension Hyperlipemia Surgical History H/O eye surgery H/O knee surgery History of ankle surgery History of brain surgery History of ear surgery History of laparoscopy History of LAVH Hx laparoscopic cholecystectomy Social History household members: none Smoking Status: Current every day smoker tobacco type: cigarettes Tobacco: How many years used: 30 alcohol intake: never substance use type: does not use caffeine: Yes Type: carbonated beverages Number of servings: 3 and coffee Number of servings: 1 what type of physical activity do you participate in: walking seatbelt use: always do you feel safe at home: Yes additional social history: - ROS <SHAYNE Murillo - Last Filed: 07/23/22 23:06> ROS ED Constitutional Constitutional ED: Denies chills, fever(s) or sweats Eyes Eyes: Reports photophobia; Denies blurry vision or change in vision ENT ENT ED: Denies rhinorrhea or sore throat Cardiovascular Cardiovascular: Reports chest pain; Denies palpitations or racing heartbeat Respiratory/Chest Respiratory/Chest: Denies cough, dyspnea or dyspnea on exertion Gastrointestinal Gastrointestinal: Denies abdominal pain, nausea or vomiting Genitourinary Genitourinary ED: Denies dysuria, hematuria or urinary frequency Musculoskeletal Musculoskeletal: Reports myalgias and neck pain Integumentary Denies abscess, Abrasions or rash Neurologic Neurologic: Reports headache(s); Denies paresthesias or weakness Psychiatric Psychiatric: Denies anxiety or depression Allergic/Immunologic Allergic/Immunologic ED: Denies mouth swelling or tongue swelling EXAM <SHAYNE Murillo - Last Filed: 07/23/22 23:06> Physical Exam Const Vital Signs: 07/23/22 21:15 07/23/22 21:52 07/23/22 21:52 Temperature 97.5 F L Temperature Source Temporal Pulse Rate 88 77 Respiratory Rate 18 16 Respiratory Effort Blood Pressure 138/102 H 114/61 Blood Pressure Mean 114 78 Pulse Ox 98 100 99 Oxygen Delivery Method Room Air Room Air Room Air 07/23/22 21:52 07/23/22 23:20 Temperature Temperature Source Pulse Rate 66 Respiratory Rate 16 Respiratory Effort Normal Blood Pressure 107/58 L Blood Pressure Mean 74 Pulse Ox 98 Oxygen Delivery Method Room Air Positive well nourished and well developed General Appearance ED: well developed HEENT Reports moist mucous membranes normocephalic and atraumatic Eyes PERRL and EOMs intact bilaterally Neck no lymphadenopathy and supple Chest Wall inspection of chest normal Chest: tenderness sternum Resp normal respiratory effort and clear to auscultation bilaterally Cardio regular rate, regular rhythm and no murmurs GI soft to palpation, non-tender, non-distended and no masses Extremity normal to inspection Neuro oriented x3, CN's II-XII intact bilaterally, no sensory deficits noted and gait normal Sensorium / Orientation: awake and alert Motor Exam: strength 5/5 throughout Psych mental status grossly normal Skin no rashes or lesions noted and no wounds <Dr. Michelle Liu MD - Last Filed: 07/24/22 00:07> Physical Exam Const Vital Signs: 07/23/22 21:15 07/23/22 21:52 07/23/22 21:52 Temperature 97.5 F L Temperature Source Temporal Pulse Rate 88 77 Respiratory Rate 18 16 Respiratory Effort Blood Pressure 138/102 H 114/61 Blood Pressure Mean 114 78 Pulse Ox 98 100 99 Oxygen Delivery Method Room Air Room Air Room Air 07/23/22 21:52 07/23/22 23:20 Temperature Temperature Source Pulse Rate 66 Respiratory Rate 16 Respiratory Effort Normal Blood Pressure 107/58 L Blood Pressure Mean 74 Pulse Ox 98 Oxygen Delivery Method Room Air MDM <SHAYNE Murillo - Last Filed: 07/23/22 23:06> [facility] MDM Narrative Medical decision making narrative: Patient admitted to worsening chest pain with deep inspiration while I was listening to her lungs, I have ordered a d-dimer for this reason. Chest x-ray does not show any acute process. She has had a stress test on 12/24/21 that was not diagnostic for stress-induced myocardial ischemia. She also had a echocardiogram that showed an ejection fraction of 60% on 01/01/22. She states that they have not found a clear reason for her chest pain or for the heart palpitations she was experiencing. She is not having heart palpitations today. Treatment for migraine was initiated due to her migraine symptoms. Lab Data Attestation: I reviewed the patient's lab results. Lab results narrative: CBC unremarkable, BMP unremarkable, first troponin less than 3. Labs: Laboratory Results - last 24 hr 07/23/22 07/23/22 07/23/22 21:38 21:38 21:38 WBC 8.0 RBC 4.34 Hgb 13.1 Hct 41.5 MCV 95.6 MCH 30.2 MCHC 31.6 L RDW Std Deviation 43.2 RDW Coeff of Zara 12.3 Plt Count 220 MPV 11.5 Immature Gran % (Auto) 0.400 Neut % (Auto) 49.6 Lymph % (Auto) 38.1 [place] % (Auto) 8.6 Eos % (Auto) 2.4 Baso % (Auto) 0.9 Absolute Neuts (auto) 4.0 Absolute Lymphs (auto) 3.04 Nucleated RBC % 0 D-Dimer Quant (PE/DVT) < 0.27 L Sodium 141 Potassium 3.8 Chloride 110 H Carbon Dioxide 25.0 Anion Gap 6 BUN 14 Creatinine 0.78 Estim Creat Clear Calc 89.94 Est GFR (MDRD) Af Amer 101 Est GFR (MDRD) Non-Af 84 BUN/Creatinine Ratio 17.9 Glucose 99 Calcium 9.3 Troponin I High Sens < 3 L 07/23/22 23:24 WBC RBC Hgb Hct MCV MCH MCHC RDW Std Deviation RDW Coeff of Zara Plt Count MPV Immature Gran % (Auto) Neut % (Auto) Lymph % (Auto) [place] % (Auto) Eos % (Auto) Baso % (Auto) Absolute Neuts (auto) Absolute Lymphs (auto) Nucleated RBC % D-Dimer Quant (PE/DVT) Sodium Potassium Chloride Carbon Dioxide Anion Gap BUN Creatinine Estim Creat Clear Calc Est GFR (MDRD) Af Amer Est GFR (MDRD) Non-Af BUN/Creatinine Ratio Glucose Calcium Troponin I High Sens < 3 L Radiography Diagnostic Testing: Clinical Impression(s) from Imaging Studies Chest X-Ray 07/23/22 22:02 IMPRESSION: No radiographic evidence of acute cardiopulmonary disease. Electronically Signed: Robin Melendez MD at 22:32 EST , EKG Initial EKG: Attestation: I personally reviewed and interpreted this EKG as follows: Comments: 84 bpm, normal sinus rhythm with sinus arrhythmia. No ST elevation or signs of cardiac ischemia. This EKG was also reviewed and interpreted by attending ED physician. <Dr. Michelle Liu MD - Last Filed: 07/24/22 00:07> [facility] Lab Data Labs: Laboratory Results - last 24 hr 07/23/22 07/23/22 07/23/22 21:38 21:38 21:38 WBC 8.0 RBC 4.34 Hgb 13.1 Hct 41.5 MCV 95.6 MCH 30.2 MCHC 31.6 L RDW Std Deviation 43.2 RDW Coeff of Zara 12.3 Plt Count 220 MPV 11.5 Immature Gran % (Auto) 0.400 Neut % (Auto) 49.6 Lymph % (Auto) 38.1 [place] % (Auto) 8.6 Eos % (Auto) 2.4 Baso % (Auto) 0.9 Absolute Neuts (auto) 4.0 Absolute Lymphs (auto) 3.04 Nucleated RBC % 0 D-Dimer Quant (PE/DVT) < 0.27 L Sodium 141 Potassium 3.8 Chloride 110 H Carbon Dioxide 25.0 Anion Gap 6 BUN 14 Creatinine 0.78 Estim Creat Clear Calc 89.94 Est GFR (MDRD) Af Amer 101 Est GFR (MDRD) Non-Af 84 BUN/Creatinine Ratio 17.9 Glucose 99 Calcium 9.3 Troponin I High Sens < 3 L 07/23/22 23:24 WBC RBC Hgb Hct MCV MCH MCHC RDW Std Deviation RDW Coeff of Zara Plt Count MPV Immature Gran % (Auto) Neut % (Auto) Lymph % (Auto) [place] % (Auto) Eos % (Auto) Baso % (Auto) Absolute Neuts (auto) Absolute Lymphs (auto) Nucleated RBC % D-Dimer Quant (PE/DVT) Sodium Potassium Chloride Carbon Dioxide Anion Gap BUN Creatinine Estim Creat Clear Calc Est GFR (MDRD) Af Amer Est GFR (MDRD) Non-Af BUN/Creatinine Ratio Glucose Calcium Troponin I High Sens < 3 L Radiography Diagnostic Testing: Clinical Impression(s) from Imaging Studies Chest X-Ray 07/23/22 22:02 IMPRESSION: No radiographic evidence of acute cardiopulmonary disease. Electronically Signed: Robin Melendez MD at 22:32 EST Reading Location ID and State: [address] [place] [address] Tel , Service support , Treatment and Re-Evaluation Narrative: Patient seen and evaluated with ANU. I personally interviewed and examined the patient. I was involved in all aspects of patient's orders, interpretation of results, and treatment. Patient presents secondary to chest pain. She has had problems with recurrent chest pain and has been seen by cardiology. She had a stress test and DEBBIE this past summer that was unremarkable. Patient presents with chest pain that started today. She is also complaining of a mild early migraine. Patient lying in bed no acute distress. Head neck examination unremarkable. Heart is regular rate and rhythm. Lung sounds are clear. Abdomen is soft and nontender. Neuro exam is normal. EKG is sinus 84 with no acute ischemia. Chest x-ray per my interpretation reveals no acute abnormalities. CBC and chemistry studies are normal. D-dimer is negative. Troponin is less than 3 on 2 separate lab draws. Patient was given Toradol, Reglan, Benadryl, IV fluids for her migraine. On repeat evaluation she does report her headache is improving. She states her chest pain is improving as well. She is reassured with these findings and will follow up with cardiology. Return instructions given. Discharge Plan Triage Chief Complaint: Chest Pain ED Midlevel Provider: Marilee Saunders ED Provider: Michelle Liu Dx/Rx/DC Orders Clinical Impression: Chest pain Instructions: ED Chest Pain, Uncertain Cause Prescriptions: No Action sumatriptan succinate 25 mg tablet See Rx Instructions PO .COMPLEX Qty: 14 0RF Rx Instructions: take 1 tab at onset of headache; if no relief may repeat 1 tab after at least 2 hrs; max = 4 tabs/24 hr PO ibuprofen 400 mg tablet 400 mg PO Q8H PRN (Reason: Pain) multivitamin Tablet 1 tab PO DAILY sucralfate 1 gram tablet 1 g PO QACHS Qty: 60 1RF Rx Instructions: Take 1 hour before meals and at bedtime metoprolol succinate 25 mg tablet extended release 24 hr 25 mg PO DAILY Qty: 30 12RF pantoprazole 40 mg tablet,delayed release (DR/EC) 40 mg PO DAILY Qty: 30 4RF Primary Care Provider: Philip Waddell Referrals: Philip Waddell MD [Primary Care Provider] - Martínez Shepard MD [Med Staff - Active Staff] - As Needed Disposition Disposition: Home, Self Care
[2022-07-23] MEDS: 0.9% Normal Saline 1,000 ML 999 ML IV (22:42)
[2022-07-23] MEDS: Ketorolac 15 MG/ML Vial IV (22:43)
[2022-07-23] MEDS: DiphenhydrAMINE 50 MG/ML Syringe 25 MG IV (22:45)
[2022-07-23] MEDS: Metoclopramide 10 MG/2 ML Vial IV (22:45)
[2022-07-23 23:20] VITALS: BP 107/58; PULSE 66; RESP 16; O2SAT 98
[2022-07-23 23:20] LABS: D-Dimer Quantitative (DVT/PE) < 0.27 FEU/ug/m (0.27-0.49)
[2022-07-23 23:52] LABS: Troponin-I HS < 3 pg/mL (3.0-54.0)
== END 2022-07-24 00:12 | disposition home or self-care (01) ==
PROVIDERS: Physician Assistant; Emergency Provider Emergency Medicine; PCP Internal Medicine; Visit Provider Emergency Medicine
DX: R07.9 Chest pain, unspecified (principal); G43.909 Migraine, unspecified, not intractable, without status migrainosus; R00.2 Palpitations; F17.210 Nicotine dependence, cigarettes, uncomplicated
CPT/HCPCS: 71045; 80048; 84484; 85025; 85379; 93005; 96374; 96375; 99284; J7030; A4216

== ENCOUNTER 2022-11-14 22:03 | Emergency (ER) | payer BC, SELFPAY ==
[2022-11-14 22:04] VITALS: BP 119/94; PULSE 75; RESP 16; TEMP 36.6; O2SAT 100; BMI 25.3
[2022-11-14 22:34] LABS: Bacteria 0 SEEN /hpf (None Seen); Mucous, Urine 0 SEEN /hpf (<or=2+); Red Blood Cells-Urine 0 SEEN /hpf (0-5)
[2022-11-14 22:37] LABS: Color, Urine Yellow (Yellow); Glucose, Dipstick Normal (Normal); Ketone-Dipstick Negative (Negative); Leukocyte Esterase-Dipstick 25 /ul (Negative); Nitrite-Dipstick Negative (Negative); Occult Blood-Urine 10 /ul (Negative); Protein-Dipstick 30 mg/dl (Negative); Specific Gravity, Urine 1.025 (1.002-1.030); Urine Bilirubin Dipstick Negative (Negative); Urine Clarity Clear (Clear); Urine Urobilinogen 1 mg/dl (Normal)
[2022-11-14 22:44] LABS: Squamous Epithelial Cells - UA 0-5 SEEN /hpf (5-10); White Blood Cells 0-5 SEEN /hpf (0-5)
--- NOTE | 2022-11-14 22:51 | CT_ITS ---
EXAM: CT ABDOMEN AND PELVIS WITHOUT INTRAVENOUS CONTRAST CLINICAL INDICATION: Kidney Stone TECHNIQUE: Helically acquired images were obtained of the abdomen and pelvis without intravenous contrast. This CT exam was performed using one or more of the following dose reduction techniques: automated exposure control, adjustment of the mA and/or kV according to patient size, and/or use of iterative reconstruction technique. This report was created using [employer] report generation technology. COMPARISON: 04/17/2022 FINDINGS: LOWER THORAX: Mild bibasilar dependent atelectasis. No cardiomegaly. No significant pericardial effusion. ABDOMEN: LIVER: Simple cyst in the right hepatic lobe, no follow-up required. GALLBLADDER AND BILE DUCTS: The gallbladder is not identified and may be contracted or surgically absent. No intra- or extrahepatic biliary ductal dilation. PANCREAS: Unremarkable. No focal cystic mass. SPLEEN: Unremarkable. Normal size without focal cystic or solid mass. ADRENALS: Unremarkable. No nodules. KIDNEYS AND URETERS: Small nonobstructing stones in the kidneys measuring up to 4 mm on the left, but there are no ureteral stones or renal obstruction. Normal renal size and position. STOMACH AND BOWEL: Unremarkable. No stomach or bowel distention. No focal inflammatory change. PELVIS: APPENDIX: The appendix is normal. BLADDER: Unremarkable. REPRODUCTIVE: Hysterectomy. ABDOMEN and PELVIS: INTRAPERITONEAL SPACE: Unremarkable. No ascites or other fluid collection. No free air. BONES/JOINTS: Unremarkable. No suspicious lytic or blastic abnormality. SOFT TISSUES: Unremarkable. No discrete abdominal or pelvic wall hernia. VASCULATURE: Unremarkable. Abdominal aorta is non-dilated. LYMPH NODES: Unremarkable. No enlarged lymph nodes. CT/Abdomen/Pelvis without Cont IMPRESSION: Small nonobstructing stones in the kidneys measuring up to 4 mm on the left, but there are no ureteral stones or renal obstruction. Electronically Signed: Keanu Kelly MD at 23:57 EDT ,
--- NOTE | 2022-11-14 22:53 | EDS_ITS ---
HPI HPI - GI History of Present Illness Chief Complaint: Flank Pain Informant: patient Abdominal Pain/Flank Pain Onset: Days (2) Context: Sudden Onset Timing: Waxes and wanes Quality: Aching Location: Left Flank Current Severity: Severe Maximum Severity: Severe Worsened by: Nothing Relieved by: Nothing Nausea/Vomiting/Emesis GI Symptom: Positive for Nausea; Negative for Vomiting Diarrhea/Melena/Hematochezia GI Symptom: Negative for Diarrhea, Melena or Hematochezia Associated Symptoms Associated Symptoms: Negative for Dysuria, Frequency or Hematuria Narrative Narrative: Acute onset of left flank pain 2 days ago, has been colicky, but now is just steady and severe. Never had this before. No known history of kidney stones. No urinary symptoms. Some bloating and anorexia, occasional nausea when the pain is bad but no vomiting or fevers/chills. PFSH [facility] Medical History Abdominal pain Abnormal echocardiogram Abnormal echocardiogram Arthritis Cardiology follow-up encounter Cervical radiculopathy Cough COVID-19 Depression Easy bruising Fatigue Focal seizure Health care maintenance History of COVID-19 History of depression History of echocardiogram History of edema History of IBS History of stress test Kidney stones Loose, teeth Malaise and fatigue Migraine headache NSVT (nonsustained ventricular tachycardia) Palpitations PONV (postoperative nausea and vomiting) Premature ventricular contraction Seizures Smoker Vertigo Wears glasses Home Medications sumatriptan succinate 25 mg tablet See Rx Instructions PO .COMPLEX #14 tabs 09/17/21 [Rx Last Taken Unknown] multivitamin 1 tab PO DAILY 10/01/21 [History Last Taken Unknown] ibuprofen 400 mg tablet 400 mg PO Q8H PRN Pain 11/30/21 [History Last Taken Unknown] metoprolol succinate 25 mg tablet,extended release 24 hr 25 mg PO DAILY #30 tabs 12/26/21 [Rx Last Taken 12/31/21] sucralfate 1 gram tablet 1 g PO QACHS #60 tabs 04/10/22 [Rx Last Taken Unknown] pantoprazole 40 mg tablet,delayed release 40 mg PO DAILY #30 tabs 06/18/22 [Rx Last Taken Unknown] hydrocodone-acetaminophen 5-325mg 5mg-325mg 1 tab PO Q6H PRN PRN Pain 2 days #6 TABLETS 04/28/23 [Rx Last Taken Unknown] Allergy/AdvReac Type Severity Reaction Status Date / Time doxycycline AdvReac Vomiting/di Verified 11/14/22 22:51 arrhea Family History Father Heart disease Colon cancer Grandmother Breast cancer Unknown Heart disease Grandfather CVA (cerebral vascular accident) Mother Hypertension Hyperlipemia Surgical History H/O eye surgery H/O knee surgery History of ankle surgery History of brain surgery History of ear surgery History of laparoscopy History of LAVH Hx laparoscopic cholecystectomy Social History household members: none Smoking Status: Current every day smoker tobacco type: cigarettes Tobacco: How many years used: 30 alcohol intake: never substance use type: does not use caffeine: Yes Type: carbonated beverages Number of servings: 3 and coffee Number of servings: 1 what type of physical activity do you participate in: walking seatbelt use: always do you feel safe at home: Yes additional social history: - ROS ROS ED Constitutional Constitutional ED: Reports anorexia; Denies chills or fever(s) Eyes Eyes: Denies change in vision or diplopia ENT ENT ED: Denies rhinorrhea or sore throat Cardiovascular Cardiovascular: Denies chest pain or palpitations Respiratory/Chest Respiratory/Chest: Denies cough or dyspnea Gastrointestinal Gastrointestinal: Reports abdominal pain, bloating and nausea; Denies diarrhea or vomiting Genitourinary Genitourinary ED: Reports flank pain; Denies dysuria, hematuria or urinary frequency Musculoskeletal Musculoskeletal: Reports back pain; Denies neck pain Integumentary Denies abscess or rash Neurologic Neurologic: Denies headache(s), paresthesias or weakness Psychiatric Psychiatric: Denies anxiety or suicidal thoughts EXAM Physical Exam Const Vital Signs: 11/14/22 22:04 11/14/22 22:51 11/15/22 00:23 Temperature 97.8 F Temperature Source Temporal Pulse Rate 75 67 Respiratory Rate 16 18 Respiratory Effort Normal Non-Labored Respiratory Pattern Normal Blood Pressure 119/94 H 113/43 L Blood Pressure Mean 102 66 Pulse Ox 100 100 Oxygen Delivery Method Room Air Room Air Positive well nourished and well developed Constitutional Narrative: Uncomfortable, in pain General Appearance ED: well developed and NAD HEENT Reports moist mucous membranes normocephalic and atraumatic Eyes PERRL and EOMs intact bilaterally Neck full ROM and supple Resp normal respiratory effort and clear to auscultation bilaterally Cardio regular rate, regular rhythm and no murmurs GI non-distended GI Narrative: Tender left upper quadrant, no guarding or rebound or palpable mass. Normal inspection. Auscultation: normoactive bowel sounds Palpation: soft Back/Spine General Back: CVA tenderness left and other FROM Extremity normal to inspection General Extremety ED: Negative for edema, pulses abnormal or tenderness General Extremity: Negative for edema or pulses abnormal Neuro oriented x3, CN's II-XII intact bilaterally and no sensory deficits noted Sensorium / Orientation: awake and alert Motor Exam: strength 5/5 throughout Psych thought process normal Mood & Affect: anxious Skin no rashes or lesions noted and no wounds MDM MDM MDM Narrative Medical decision making narrative: Labs and urinalysis are unremarkable. CT of the abdomen/pelvis was obtained, differential includes but is not exclusive of ureterolithiasis/renal colic, pyelonephritis, diverticulitis, upper GI etiologies. CT is completely unremarkable except for asymptomatic left nephrolithiasis, 4 mm and less but no signs of obstructive uropathy at this time. Urinalysis shows no signs of infection. She is better after analgesics, clinically her history and exam are most consistent with a kidney stone with obstructive uropathy, and since there is none seen on CT, it is most likely that she cleared the obstruction prior to the imaging. We discussed other possibilities such as functional GI pain, at this time I will prescribe her short course of analgesics with the expectation that her pain will resolve within the next 24 hours, follow-up advised if it does not. She is comfortable with that plan. Lab Data Attestation: I reviewed the patient's lab results. Labs: Laboratory Results - last 24 hr 11/14/22 11/14/22 11/14/22 22:30 22:49 22:49 WBC 7.5 RBC 4.67 Hgb 14.2 Hct 43.8 MCV 93.8 MCH 30.4 MCHC 32.4 RDW Std Deviation 42.6 RDW Coeff of Zara 12.3 Plt Count 259 MPV 11.2 Immature Gran % (Auto) 0.400 Neut % (Auto) 50.5 Lymph % (Auto) 37.4 [place] % (Auto) 8.6 Eos % (Auto) 2.3 Baso % (Auto) 0.8 Absolute Neuts (auto) 3.8 Absolute Lymphs (auto) 2.80 Nucleated RBC % 0 Sodium Potassium Chloride Carbon Dioxide Anion Gap BUN Creatinine Estim Creat Clear Calc Est GFR (MDRD) Af Amer Est GFR (MDRD) Non-Af BUN/Creatinine Ratio Glucose Calcium Serum , Qual NEGATIVE Urine Color Yellow Urine Clarity Clear Urine pH 5.0 Ur Specific [place] 1.025 Urine Protein 30 H Urine Glucose (UA) Normal Urine Ketones Negative Urine Occult Blood 10 H Urine Nitrite Negative Urine Bilirubin Negative Urine Urobilinogen 1 H Ur Leukocyte Esterase 25 H Urine RBC 0 SEEN Urine WBC 0-5 SEEN Ur Squamous Epith Cells 0-5 SEEN Urine Bacteria 0 SEEN Urine Mucus 0 SEEN 11/14/22 22:49 WBC RBC Hgb Hct MCV MCH MCHC RDW Std Deviation RDW Coeff of Zara Plt Count MPV Immature Gran % (Auto) Neut % (Auto) Lymph % (Auto) [place] % (Auto) Eos % (Auto) Baso % (Auto) Absolute Neuts (auto) Absolute Lymphs (auto) Nucleated RBC % Sodium 138 Potassium 3.8 Chloride 107 Carbon Dioxide 28.0 Anion Gap 3 L BUN 8 Creatinine 0.81 Estim Creat Clear Calc 86.61 Est GFR (MDRD) Af Amer 97 Est GFR (MDRD) Non-Af 81 BUN/Creatinine Ratio 9.9 L Glucose 96 Calcium 9.1 Serum , Qual Urine Color Urine Clarity Urine pH Ur Specific [place] Urine Protein Urine Glucose (UA) Urine Ketones Urine Occult Blood Urine Nitrite Urine Bilirubin Urine Urobilinogen Ur Leukocyte Esterase Urine RBC Urine WBC Ur Squamous Epith Cells Urine Bacteria Urine Mucus Radiography Diagnostic Testing: Clinical Impression(s) from Imaging Studies Abdomen/Pelvis CT 11/14/22 22:51 IMPRESSION: Small nonobstructing stones in the kidneys measuring up to 4 mm on the left, but there are no ureteral stones or renal obstruction. Electronically Signed: Keanu Kelly MD at 23:57 EDT , Discharge Plan Triage Chief Complaint: Flank Pain ED Provider: Keon Prescott Dx/Rx/DC Orders Clinical Impression: Acute left flank pain, Left nephrolithiasis Instructions: ED Kidney Stone w/ Colic Prescriptions: New hydrocodone-acetaminophen [hydrocodone-acetaminophen] 5-325 mg tablet 1 tab PO Q6H PRN PRN (Reason: Pain) 2 Days Qty: 6 0RF No Action sumatriptan succinate 25 mg tablet See Rx Instructions PO .COMPLEX Qty: 14 0RF Rx Instructions: take 1 tab at onset of headache; if no relief may repeat 1 tab after at least 2 hrs; max = 4 tabs/24 hr PO ibuprofen 400 mg tablet 400 mg PO Q8H PRN (Reason: Pain) multivitamin Tablet 1 tab PO DAILY sucralfate 1 gram tablet 1 g PO QACHS Qty: 60 1RF Rx Instructions: Take 1 hour before meals and at bedtime metoprolol succinate 25 mg tablet extended release 24 hr 25 mg PO DAILY Qty: 30 12RF pantoprazole 40 mg tablet,delayed release (DR/EC) 40 mg PO DAILY Qty: 30 4RF Primary Care Provider: Philip Waddell Referrals: Philip Waddell MD [Primary Care Provider] - 3-5 Days if not improving Disposition Disposition: Home, Self Care
[2022-11-14 23:00] LABS: Absolute Neutrophil Count 3.8 X10^3/uL (2.0-7.7); Basophil# 0.06 X10^3/uL; Basophil% 0.8 % (0-1); Eosinophil# 0.17 X10^3/uL; Eosinophils% 2.3 % (0-5); Hematocrit 43.8 % (37-47); Hemoglobin 14.2 g/dL (12.0-15.0); Lymphocyte % 37.4 % (19-41); Mean Corp Hgb Conc 32.4 g/dL (32-36); Mean Corpuscular Hgb 30.4 pg (27.0-32.0); Mean Corpuscular Volume 93.8 fL (81-99); Mean Platelet Vol. 11.2 fl (6.2-12.0); Monocyte# 0.64 X10^3/uL; Monocyte% 8.6 % (0-10); NRBC Flagged by Analyzer 0 % (0-5); Neutrophil # 3.78 X10^3/uL (2.7-7.7); Neutrophil % 50.5 % (47-70); Platelet Count 259 K/mm3 (150-450); RBC Distribution Width CV 12.3 % (11.6-14.6); RBC Distribution Width SD 42.6 fl (35.1-43.9); Red Blood Count 4.67 M/mm3 (4.2-5.4); White Blood Count 7.5 K/mm3 (4.4-11.0)
[2022-11-14 23:08] LABS: Internal QC Validated? YES +Cl - CLEAR BKGD; Pregnancy, Serum, hCG Quali. NEGATIVE Negative
[2022-11-14 23:12] LABS: Anion Gap 3 (5-15); BUN 8 mg/dL (7-18); BUN/Creat Ratio 9.9 RATIO (10-20); Calcium,Total 9.1 mg/dL (8.5-10.1); Chloride 107 mmol/L (98-107); Creatinine, Serum 0.81 mg/dL (0.55-1.02); EST Glomerular Filtration Rate 81 mL/min (>60); Est Glom Filt Rate - Afr Amer 97 mL/min (>60); Estimated Creatinine Clearance 86.61 ml/min; Glucose 96 mg/dL (74-106); Potassium 3.8 mmol/L (3.5-5.1); Sodium Level 138 mmol/L (136-145)
[2022-11-14] MEDS: Ondansetron 4 MG/2 ML Vial IV (23:15)
[2022-11-14] MEDS: Morphine 4 MG/ML Syringe IV (23:19)
[2022-11-14] MEDS: Ketorolac 30 MG/ML Syringe IV (23:23)
[2022-11-15 00:23] VITALS: BP 113/43; PULSE 67; RESP 18; O2SAT 100
[2022-11-15] MEDS: Morphine 4 MG/ML Syringe IV (00:46)
[2022-11-15 02:06] VITALS: BP 119/67; PULSE 70; RESP 18; O2SAT 100
== END 2022-11-15 02:07 | disposition home or self-care (01) ==
PROVIDERS: Emergency Provider Emergency Medicine; PCP Internal Medicine; Visit Provider Emergency Medicine
DX: R10.9 Unspecified abdominal pain (principal); N20.0 Calculus of kidney; F17.210 Nicotine dependence, cigarettes, uncomplicated; Z86.16 Personal history of COVID-19
CPT/HCPCS: 74176; 80048; 81001; 84703; 85025; 96374; 96375; 96376; 99284; A4216; J2405

== ENCOUNTER → 2022-11-28 | Outpatient (CLI) | payer BC, SELFPAY ==
--- NOTE | 2022-11-28 12:37 | BI_ITS ---
MAMMOGRAPHY - BILATERAL SCREENING REASON FOR EXAM: Female, 46 years old. Routine annual screening examination. PERTINENT HISTORY: Sister with breast cancer. Grandmother with breast cancer. TECHNIQUE: Digital bilateral breast miya (3D mammographic acquisition) in the CC and MLO projections. 2-D mediolateral oblique (MLO) and craniocaudad (CC) views of both breasts were obtained. CAD: Full Field Digital Mammography with Computer Added Detection was performed. COMPARISON: Comparison is made with prior examination October 02, 2021 and September 09, 2017. FINDINGS: Breast Composition: The breasts are heterogeneously dense, which may obscure small masses. There are no dominant masses or suspicious calcifications. No other significant abnormalities are identified. There has been no significant change since the prior study. BI/SCRN MAMM (CAD)W/MIYA BILAT IMPRESSION: Stable bilateral screening mammogram. Yearly follow-up mammogram recommended. (A) ASSESSMENT CATEGORY: BIRADS Category 1: Negative. A letter regarding these results will be sent to the patient by the facility within 30 days. Approximately 10% of breast cancers are not detected by mammography. A normal mammogram should not delay biopsy of a clinically suspicious abnormality. [id number] Electronically Signed: Guerrero Hernandez MD at 14:13 EDT ,
== END | disposition home or self-care (01) ==
LOC: OPBI 12:35
PROVIDERS: PCP Internal Medicine; Referring Provider Nurse Practitioner Family; Visit Provider Nurse Practitioner Family
DX: Z12.31 Encounter for screening mammogram for malignant neoplasm of breast (principal)
CPT/HCPCS: 77063; 77067

== ENCOUNTER → 2022-11-30 | Outpatient (CLI) | payer BC, SELFPAY ==
--- NOTE | 2022-11-30 07:32 | MRI_ITS ---
HISTORY: CERVICAL RADICULOPATHY. TECHNIQUE: Multiplanar and multisequence MR images of the cervical spine were obtained without contrast. 193 images. COMPARISON: CT 09/11/2021. FINDINGS: VERTEBRAE: Vertebral body heights maintained. Moderate degenerative bone marrow endplate changes of C5-6. VERTEBRAL ALIGNMENT: Straightening of the cervical lordosis without significant anterior or posterior subluxation. SPINAL CORD: Cervical cord signal and morphology within normal limits. SOFT TISSUES: No prevertebral fluid collection. INTERVERTEBRAL DISCS: C2-3: No significant posterior disc protrusion, central canal stenosis, or foraminal narrowing. C3-4: Segmentation anomaly with rudimentary disc. No significant posterior disc protrusion, central canal stenosis, or foraminal narrowing. C4-5: No significant posterior disc protrusion , central canal stenosis, or foraminal narrowing. C5-6: Moderate posterior disc bulge osteophyte complex with uncovertebral arthropathy resulting in very mild central canal stenosis and bilateral foraminal narrowing. C6-7: Mild posterior disc bulge osteophyte complex with uncovertebral arthropathy resulting in minimal narrowing of the thecal sac and mild bilateral foraminal narrowing. C7-T1: No significant posterior disc protrusion, central canal stenosis, or foraminal narrowing. MRI/Spine Cervical (Routine) IMPRESSION: Degenerative disc disease of C5-6 and C6-7 resulting in very mild central canal stenosis and bilateral foraminal narrowing as above. Electronically Signed: Liz Fierro MD at 10:05 EDT ,
== END | disposition home or self-care (01) ==
PROVIDERS: PCP Internal Medicine; Referring Provider Nurse Practitioner Family; Visit Provider Nurse Practitioner Family
DX: M54.12 Radiculopathy, cervical region (principal)
CPT/HCPCS: 72141

== ENCOUNTER → 2023-01-02 | Outpatient (CLI) | payer BC, SELFPAY ==
[2023-01-02 15:57] LABS: T4 Free Direct 1.03 ng/dL (0.76-1.46); Thyroid Stim Hormone (TSH) 0.99 uIU/mL (0.358-3.74)
== END | disposition home or self-care (01) ==
LOC: BIMLAB 14:18
PROVIDERS: PCP Internal Medicine; Referring Provider Internal Medicine; Visit Provider Internal Medicine
DX: Z13.29 Encounter for screening for other suspected endocrine disorder (principal)
CPT/HCPCS: 36415; 84439; 84443

== ENCOUNTER → 2023-02-01 | Outpatient (CLI) | payer BC, SELFPAY ==
--- NOTE | 2023-02-01 10:15 | MRI_ITS ---
INDICATION: pain EXAMINATION: MRI - MR Spine Lumbar W/O Contrast TECHNIQUE: Multiplanar and multisequence MR images of the lumbar spine. IV Contrast Dosage and Agent: None. COMPARISON: FINDINGS: VERTEBRAE: Vertebral body heights are preserved. Normal vertebral bodies and posterior elements. VERTEBRAL ALIGNMENT: No spondylolisthesis. There is preservation of the normal lumbar lordosis. CORD: Normal position and signal intensity of the conus medullaris. L1/L2: Normal disc height and morphology. Normal spinal canal, lateral recesses and neuroforamina. L2/L3: Normal disc height and morphology. Normal spinal canal, lateral recesses and neuroforamina. L3/L4: Normal disc height and morphology. Normal spinal canal, lateral recesses and neuroforamina. L4/L5: There is disc desiccation and mild disc space narrowing. There is mild broad-based disc herniation with mild left foraminal stenosis. There is ligamentous hypertrophy. L5/S1: There is disc desiccation moderate disc space narrowing. There is mild broad-based disc herniation with mild bilateral foraminal stenosis. SOFT TISSUES: Unremarkable. MRI/Spine Lumbar (Routine) IMPRESSION: Disc desiccation, disc space narrowing, herniation and mild foraminal stenosis as described at L4/5 and L5/S1. Electronically Signed: Campos Constantino, at 12:12 EDT ,
== END | disposition home or self-care (01) ==
LOC: MRI 10:15
PROVIDERS: PCP Internal Medicine; Referring Provider Orthopaedic Surgery; Visit Provider Orthopaedic Surgery
DX: M54.50 Low back pain, unspecified (principal)
CPT/HCPCS: 72148

== ENCOUNTER → 2023-03-17 | Outpatient (CLI) | payer BC, SELFPAY ==
[2023-03-25 15:16] LABS: Absolute Neutrophil Count 3.8 X10^3/uL (2.0-7.7); Basophil# 0.08 X10^3/uL; Basophil% 1.2 % (0-1); Eosinophil# 0.11 X10^3/uL; Eosinophils% 1.7 % (0-5); Hematocrit 43.9 % (37-47); Hemoglobin 14.2 g/dL (12.0-15.0); Lymphocyte % 31.2 % (19-41); Mean Corp Hgb Conc 32.3 g/dL (32-36); Mean Corpuscular Hgb 30.5 pg (27.0-32.0); Mean Corpuscular Volume 94.2 fL (81-99); Mean Platelet Vol. 11.4 fl (6.2-12.0); Monocyte# 0.42 X10^3/uL; Monocyte% 6.6 % (0-10); NRBC Flagged by Analyzer 0 % (0-5); Neutrophil # 3.78 X10^3/uL (2.7-7.7); Platelet Count 245 K/mm3 (150-450); RBC Distribution Width CV 12.4 % (11.6-14.6); RBC Distribution Width SD 42.9 fl (35.1-43.9); Red Blood Count 4.66 M/mm3 (4.2-5.4); White Blood Count 6.4 K/mm3 (4.4-11.0)
[2023-03-25 15:21] LABS: Prothrombin Time (Protime)PT. 12.7 SECONDS (11.7-14.9)
[2023-03-25 15:22] LABS: Partial Thromboplast Time 26.7 Seconds (24.1-36.2)
[2023-03-25 15:40] LABS: AST(SGOT) 10 U/L (15-37); Alanine Aminotransfer ALT/SGPT 14 U/L (13-56); Albumin, Serum 3.6 g/dL (3.2-5.0); Alkaline Phosphatase 71 U/L (45-117); Bilirubin, Direct 0.09 mg/dL (0.00-0.30); Globulin 3.7 g/dL (2.2-4.2); Magnesium 2.3 mg/dL (1.6-2.6); Protein, Total 7.3 g/dL (6.4-8.2)
[2023-03-25 15:44] LABS: Anion Gap 3 (5-15); BUN 7 mg/dL (7-18); Calcium,Total 8.6 mg/dL (8.5-10.1); Chloride 108 mmol/L (98-107); Creatinine, Serum 0.78 mg/dL (0.55-1.02); EST Glomerular Filtration Rate 84 mL/min (>60); Est Glom Filt Rate - Afr Amer 101 mL/min (>60); Glucose 95 mg/dL (74-106); Potassium 3.9 mmol/L (3.5-5.1); Sodium Level 140 mmol/L (136-145)
[2023-03-25 16:22] LABS: HIV - WCH Non-Reactive (Nonreactive); Hepatitis B Surface Antibody Reactive; Hepatitis C Antibody Non-Reactive (Nonreactive)
[2023-03-27 08:12] LABS: Hepatitis A AB, Total Negative (Negative)
== END | disposition home or self-care (01) ==
LOC: PAT 04-17 16:08
PROVIDERS: Anesthesiology; PCP Internal Medicine; Referring Provider Orthopaedic Surgery; Visit Provider Orthopaedic Surgery
DX: Z01.818 Encounter for other preprocedural examination (principal); Z01.812 Encounter for preprocedural laboratory examination
CPT/HCPCS: 36415; 80048; 80076; 83735; 85025; 85610; 85730; 86703; 86706; 86708; 86803; 87077; 87081; J3475

== ENCOUNTER 2023-06-03 05:34 | Inpatient (IN) | payer OTHER, SELFPAY ==
[2023-06-03] VITALS (22 sets, daily range): BP systolic 94–125; BP diastolic 53–84; PULSE 61–102; RESP 10–18; TEMP 36.1–36.8; O2SAT 98–100; BMI 32.8; BMI 26.7
--- NOTE | 2023-06-03 | DISC_PTH ---
PATIENT: PHILIP CURRY LOC: MS3 U#:[id number] AGE/SX: 47/F [place]OM[place] [facility] [place]: Dr. Elan Honeycutt DO : 1975 BED: 1 DIS: 06/06/2023 SPEC #: [id number] RECD: 06/04/23 08:26 STATUS: DANNY RE #: [id number] JEANNETTE: 06/03/23 00:[address]: Elan Honeycutt DEPT: SURGICAL PATHOLOGY RECD BY: Mirtha Dan ENTERED: 06/04/23 08:26 SP TYPE: DISC OTHR DR: MD Dr. Raul Llamas, DO MD Dr. Joycelyn Manley MD Dr. Achintya Singh, MD Dr. Autumn L White, MD Dr. Mary Catherine Sementi, DO Dr. Jose Olson, DO MD Campos Norris MD Dr. Eric Jopperi, DO MD Dr. Sushila Good MD Dr. Joseph Agyepong, MD Dr. James Mooney, MD Dr. Jonathan Vogt, DO Dr. Naomi Araya, DO Dr. Anthony Wiley, DO MD Dr. Esteban Lopez MD Dr. Prakash Chand, MD Dr. Paul Nielsen, MD Dr. Paige Pierce, MD Dr. Ryan Burkholder, MD Jessica Franklin, JIMMIE-SHAYNE Maloney Tissues: Intervertebral disc, NOS Procedures: Surgery Specimen Level III HEADER OPERATION: ERAS, 360 lumbar fusion L5-S1 with laminectomy L5-S1 on left PRE-OP DIAGNOSIS: Herniation of intervertebral disc between L5 and S1 TISSUE SUBMITTED: Disc L5-S1 MICROSCOPIC DIAGNOSIS Intervertebral disc L5-S1, discectomy: Fragments of intervertebral disc with degenerative and focal reparative change. VALARIE:kacie 06/05/2023 MICROSCOPIC DESCRIPTION Slides are reviewed. GROSS DESCRIPTION Received in fixative is one container labeled with the patient's name and designated Disc L5-S1. The specimen consists of multiple irregular and indurated fragments of conway-white soft tissue that in aggregate measure 7.0 x 5.0 x 2.0 cm. Spice Grinder portions are submitted in one cassette. / AM:kacie 06/04/2023 TC:5 CPT: 41287
[2023-06-03] MEDS: Magnesium 1 GM over 15 mins IV (06:23)
[2023-06-03] MEDS: Lactated Ringers 1,000 ML 15 ML IV (06:23)
[2023-06-03] MEDS: Acetaminophen 500 MG Tablet 1000 MG PO ×2 (06:25→22:06)
--- NOTE | 2023-06-03 06:30 | RAD_ITS ---
STUDY: X-RAY - LUMBAR SPINE REASON FOR EXAM: Female, 47 years old. 360 FUSION L4-5, L5-S1, LAMINECTOMY L5-S1,LEFT TECHNIQUE: 1 lateral view(s) of the lumbar spine were obtained. COMPARISON: January 09, 2023 FINDINGS: Metallic retractors anterior L5-S1 level. Disc space narrowing noted. RAD/Spine 1 View Any Level IMPRESSION: Please correlate with clinical service Electronically Signed: Willie Lemus MD at 21:38 EST ,
[2023-06-03 07:18] LABS: Bedside Glucose 80 mg/dL (74-106)
--- NOTE | 2023-06-03 07:27 | HP.PCM_ITS ---
History and Physical [id number] Acct: [id number] Name: SASHA CURRY Rep #: [id number] : 1975 Provider: Dr. Elan Honeycutt DO Age/Sex: 47/F Location[place] [facility] [place] Status: Signed Intake Vital Signs 11/21/2312:41 Height 5 ft 8 in Intake Visit Reasons: LUMBER SPINE Chief Complaint: Low back pain Is patient in pain?: Yes Allergies doxycycline Adverse Reaction (Verified 01/09/23 08:46) Vomiting/diarrhea Medications ibuprofen 400 mg tablet 400 mg PO Q8H PRN Pain 11/30/21 [History Confirmed 01/09/23] metoprolol succinate 25 mg tablet,extended release 24 hr 25 mg PO DAILY #30 tabs 12/26/21 [Rx Confirmed 01/09/23] sumatriptan succinate 25 mg tablet See Rx Instructions PO .COMPLEX #14 tabs 11/21/22 [Rx Confirmed 01/09/23] baclofen 10 mg tablet 10 mg PO TID PRN muscle spasm #90 tabs 01/02/23 [Rx Confirmed 01/09/23] pantoprazole 40 mg tablet,delayed release 40 mg PO BID #180 tabs 01/02/23 [Rx Confirmed 01/09/23] sucralfate 1 gram tablet 1 g PO QACHS #60 tabs 01/02/23 [Rx Confirmed 01/09/23] PFSH Medical History (Updated 01/09/23 @ 09:00 by Nadia Mena) Abdominal pain Abnormal echocardiogram Abnormal echocardiogram Arthritis Cardiology follow-up encounter Cervical radiculopathy Chronic back pain Cough COVID-19 Depression Dermatitis Easy bruising Fatigue Focal seizure GERD (gastroesophageal reflux disease) Health care maintenance History of COVID-19 History of depression History of echocardiogram History of edema History of IBS History of stress test Kidney stones Loose, teeth Malaise and fatigue Migraine Migraine headache NSVT (nonsustained ventricular tachycardia) Palpitations PONV (postoperative nausea and vomiting) Premature ventricular contraction Screening for thyroid disorder Seizures Smoker Vertigo Wears glasses Surgical History H/O eye surgery H/O knee surgery History of ankle surgery History of brain surgery History of ear surgery History of laparoscopy History of LAVH Hx laparoscopic cholecystectomy Family History Father Heart disease Colon cancerGrandmother Breast cancerUnknown Heart diseaseGrandfather CVA (cerebral vascular accident)Mother Hypertension Hyperlipemia Social History household members: none Smoking Status: Current every day smoker tobacco type: cigarettes Tobacco: How many years used: 30 alcohol intake: never substance use type: does not use caffeine: Yes Type: carbonated beverages Number of servings: 3 and coffee Number of servings: 1 what type of physical activity do you participate in: walking seatbelt use: always do you feel safe at home: Yes additional social history: - HPI LUMBER SPINE Details: Parts of this documentation were recorded by a scribe, this documentation accurately reflects the service provided and the decisions made by me, Dr. Elan Honeycutt, DO 01/09/23 0830. SASHA CURRY is a 47 year old F here today for lower back pain. States that her low back pain has been off and on since her last appt on 01/02/23 along with her groin muscle feeling tight and sciatica going down her left leg which causes her foot to go numb as well. Denies any known injury. States that everything she does increase her pain like navigating stairs squatting down and then getting up from the squat position and sitting for long periods of time. States that she has been taking Ibuprofen and Dr. Waddell gave her baclofen for the pain. States that she does use ice/heat. Denies bowel and bladder dysfunction. Sasha turns with a new problem. Its not new to her however. In many months she has had pain in her back that radiates into her left buttocks and down her left leg and what is described as a classic S1 dermatome. The pain has been quite severe of late and she would rated as a 10/10 most of the time. Activity makes it worse. When she walks she has noticed some weakness in her left foot. Incidentally her neck is doing better after the simple epidural injection and is still better and her headaches are still better. On examination she has very positive tension signs on the left and very positive straight leg raising. She also gets pain down the leg with simple extension of her lumbar spine the pain increases dramatically. Her patellar reflexes are 1+ and equal bilaterally. Her right Achilles is 1+ but her left Achilles as expected is absent. She also has peroneal weakness of the left side compared to the right. She has easy fatigability of the gastrocnemius on the left as compared to the right. She has no long tract signs. Clonus is absent and Babinski's are downgoing. Plain x-rays of the lumbar spine demonstrated decreased disc space with some spurring at L5-S1. The impression is that of herniated disc L5-S1 with left S1 radiculopathy and neurological deficits. We are ordering an MRI scan of the lumbar spine to be done as is reasonably possible. She will probably need surgical intervention. Coding Level of Care Code Off vis,est,level 3 Diagnoses Herniation of intervertebral disc between L5 and S1 M51.27 Time Spent (min) 25 Assessment and Plan Assessment and Plan (1) Herniation of intervertebral disc between L5 and S1: Status: Acute
[2023-06-03] MEDS: Cefazolin 2 GM in 0.9% Normal Saline (100mL Bag) 100 ML IV (08:23)
--- NOTE | 2023-06-03 10:56 | RAD_ITS ---
STUDY: X-RAY - LUMBAR SPINE REASON FOR EXAM: Female, 47 years old. 360 FUSION TECHNIQUE: 1 view(s) of the lumbar spine were obtained. COMPARISON: 01/09/2023. FINDINGS: Normal lumbar lordosis. Status post anterior fusion at L4-L5 and L5-S1 with disc prosthesis at this levels. Normal vertebral bodies and endplates. Normal disc space heights. There is no demonstrated fracture. The soft tissue structures are unremarkable. RAD/Spine 1 View Any Level IMPRESSION: Postoperative changes from L4 to S1 as described. No acute fracture. Normal alignment. Electronically Signed: Nimo Vasquez MD at 1:06 EST ,
--- NOTE | 2023-06-03 13:00 | RAD_ITS ---
STUDY: X-RAY - LUMBAR SPINE REASON FOR EXAM: Female, 47 years old. 360 FUSION TECHNIQUE: 1 view(s) of the lumbar spine were obtained. COMPARISON: None FINDINGS: Anterior fusion with prosthetic disc at the L4-L5 and L5-S1 level. . RAD/Spine 1 View Any Level IMPRESSION: Anterior fusion with prosthetic disc placement at the L4-L5 and L5-S1 levels. Electronically Signed: Guerrero Hernandez MD at 13:17 EST ,
--- NOTE | 2023-06-03 13:46 | OP.PCM_ITS ---
Report of Operation Description of Surgical Findings:: Preoperative diagnosis: Degenerative disc disease L5-S1 and annular tear L4-5 Postoperative diagnosis: Same Procedures: #1 anterior lumbar interbody fusion L5-S1 CPT code 16646 #2 anterior spine plate L5-S1 CPT code 43912/59 #3 anterior spine plate L4-5 CPT code 12241/59 #4 anterior lumbar interbody fusion L4-5 CPT code 74255/51 #5 insertion of cage L5-S1 CPT code 10041 #6 insertion of cage at L4-5 CPT code 55772/51 #7 bone marrow aspirate right iliac crest CPT code 95205 #8 allograft for both cages CPT code 04759 Co-surgeons: Dr. Honeycutt and Dr. Schreiber First assistants: Dr. Rob and Ameena BELLA Anesthesia: General endotracheal by [facility] EBL: 200 cc Drains: None Complications: None Procedure: Patient taken to the OR where she was placed in the supine position on the operating table she was then placed under general endotracheal anesthesia. A De León catheter was inserted. Neuro monitoring placed her leads on the patient. The abdomen was then prepped and draped in standard fashion. The surgical approach is then described in Dr. Schreiber's operative summary. Once he had good exposure at L5-S1 I took a 10 blade and long-handle and cut the anterior annulus at L5-S1 this was removed and then removed more nucleus from within the disc space with pituitary rongeurs. I also used both ring curettes and bowl curettes to remove the cartilage all the way back to near the posterior longitudinal ligament. I also removed all the cartilage off both endplates. Noted had used a bur to bur the back and because it was collapsed to close together for the cage. I used the rishi bur repeatedly until enough room was made posteriorly. I then took my measurements for the cage we decided to use a 12 mm high 25 x 35 mm cage. This was an 8 degree cage. We then filled it with spongy allograft. Note that at the beginning of the case my computer lab assistant obtained 60 cc of bone marrow aspirate from the right iliac crest. This was given to the appliance repair technician in the room who then spun it down the stem cells from all the other cells and gave a several cc back concentrated stem cells that belonged to the patient. The allograft was then soaked in the stem cell rich mixture. It was then tamped into place and countersunk a couple of millimeters. I then used a 23 mm L5-S1 type plate it was centered in the first of 4 holes were made by using an awl. With me holding it Dr. Schreiber punched each one of the holes at the appropriate angle and injured with 230 mm screws into L5 and 2 5025 mm screws into S1. The locking mechanisms were then activated. We then moved up to the next level noted at this was a very difficult exposure at L4-5 because she had a very high riding bifurcation. But Dr. Schreiber worked diligently on the exposure until we had adequate exposure. I remove the anterior annulus using again the 10 blade. This was followed by removal of nucleus from the disc base with pituitary rongeurs and both ring and bowl curettes. This was taken all the way back to the back and again had to use the rishi bur to bur the back and to make room for the cage. We measured this cage and found that we could use a 14 mm 25 x 35 mm cage with an 8 degree lordosis. Note that the space as was the L5-S1 with was broached repeatedly that we had good bleeding endplate. Again the cage was filled with spongy allograft bone which was then soaked in the patient's own concentrated stem cells. This was then tamped into place and countersunk a millimeter or 2. The has standard 25 mm plate was used at this level. At this time 30 mm screws were used at all [address] Schreiber punched each individual hole with the awl followed by insertion of the self-tapping screws at all 4 corners the locking mechanisms were then activated. We then took a postoperative x-rays demonstrate excellent position of both cages, both plates and all the screws. The closure of the approach is then described in Dr. Schreiber's operative summary. This the end of operative summary on [facility]. This is Dr. Honeycutt dictating.
[2023-06-03] MEDS: THROMBIN (RECOMBINANT) 20,000 UNIT VIAL 20000 UNIT TOPICAL (15:20)
--- NOTE | 2023-06-03 15:56 | PCM.OPRPT ---
Report of Operation Description of Surgical Findings:: Preoperative diagnosis: Degenerative disc disease L5-S1 and annular tear L4-5 Postoperative diagnosis: The same Procedures: #1 posterior fusion L5-S1 CPT code 81903 #2 internal fixation L5-S1 CPT code 79031 #3 internal fixation L4-5 CPT code 03863/51 #4 posterior fusion L4-5 CPT code 76407/51 #5 allograft bone CPT code 56890 Surgeon: Dr. Honeycutt Floral Merchandiser: Ameena BELLA Anesthesia: General endotracheal by [facility] EBL: 65 cc Drains: None Complications: None Procedure: Once the anterior surgery was completely finished the patient was then turned over onto the prone position on the Guille frame. After appropriate positioning with care to protect her bony prominences, her breasts, brachial plexus on both sides, her ulnar nerves of both elbows, and her facial features and cervical spine the back was prepped and draped standard fashion. I then made a longitudinal incision centered over L4-5. Subcutaneous tissues were incised the length of the skin incision. First over the lumbar fascia to the left of the spinous processes and elevated the paravertebral muscles off the lamina of L4 and L5. An intraoperative x-ray was taken to confirm that we were indeed at L4-5. I further opened the lumbar fascia elevated off the lamina of L5 the rest of that in of S1 and also. We then opened the right side and did the same thing elevated the paravertebral muscles off the lamina for the lamina of 5 and the lamina of S1. Self-retaining retractors were then put in place these were super slide retractors. I then moved the interspinous ligament between L4-5 and L5-S1. Measurements for the endograft were then taken. Then used a rishi bur to bur the lamina of L4 on both sides, followed by burring of the lamina 5 on both sides and the finally the lamina of S1. We then put our endograft in place at both places we used the 8 mm at 4 5 and 10 mm at L5-S1. Then used the internal fixation devices a 36 mm at 4 5 and a 36 mm at L5-S1. These were applied they were locked into place and the locking mechanisms then activated. This was found to be an excellent construct. Then thoroughly irrigated 1 last time. We then closed the lumbar fascia using [id number] suture with #1 Vicryl followed by closure of subcutaneous tissues with 2-0 Vicryl in interrupted fashion and the skin was approximated using skin clips. Sterile dressings were then applied. The patient was then recovered in the OR she was placed on her hospital bed and taken to recovery in satisfactory condition. This is the end of operative summary on Sasha Mata. This is Dr. Honeycutt dictating.
[2023-06-03] MEDS: Cefazolin 1 GM/50 ML BAG IV (21:08)
--- NOTE | 2023-06-03 21:12 | PCM.PN.HOSP ---
Reason for Visit Reason for Visit: Chronic low back pain secondary to HNP L5-S1 Subjective Subjective Patient is a 47-year-old female with a history of hypertension, GERD, and migraine headaches who presented electively for a lumbar fusion at L5-S1 secondary to degenerative disc disease and an annular tear at L4-L5. She evidently had been having low back pain on and off throughout the entire summer with symptoms into her groin and down her left leg which caused her foot to go numb. She had decreased functional ability and has been taking oral medication as well as baclofen. She denies any bowel or bladder dysfunction. Dermatome only her symptoms were classic S1. She had a positive straight leg raise as well as an absent left Achilles reflex and peroneal weakness on the left side compared to the right. She also had easy fatigability of the gastrocnemius on the left. Plain x-rays demonstrated disc space narrowing with spurring at L5-S1 and MRI was consistent with HNP and annular tear at the same level. We have been consulted postoperatively for medical management. She was seen on the medical floor after surgery. All of her home medicines were have been continued except for ibuprofen and baclofen which she was taking for her back issues. Complaining of some pain however she is sleeping. She has some slight confusion but has just been brought up from PACU not long ago and still has anesthesia as well as some pain medication on board. We will continue to monitor through the night. Objective Data Objective Data Vital Signs: Vital Signs Temp Pulse Resp BP Pulse Ox O2 Del Method O2 Flow Rate 98 F 95 16 113/75 98 Nasal Cannula 1 06/03/23 20:28 06/03/23 20:28 06/03/23 20:28 06/03/23 20:28 06/03/23 20:28 06/03/23 20:28 06/03/23 20:28 Oxygen Flow Rate (L/min) 1 Oxygen Delivery Method Nasal Cannula Weight: 80 kg Body Mass Index (BMI) 26.7 Intake & Output: Intake and Output for Last 24 Hours 06/01/23 06/02/23 06/03/23 23:59 23:59 23:59 Intake Total 1212 / 1212 Output Total 750 / 750 Balance 462 / 462 Lab / Micro Data Labs: Laboratory Results - last 24 hr 06/03/23 06:17: POC Glucose 80 Radiography Diagnostic Testing: Radiology Impression Spine X-Ray 06/03/23 13:00 IMPRESSION: Anterior fusion with prosthetic disc placement at the L4-L5 and L5-S1 levels. Electronically Signed: Guerrero Hernandez MD at 13:17 EST , Physical Exam Const healthy appearing and well nourished Constitutional Narrative: Middle-aged, white female, significant other bedside, sleeping over the time my arrival however awakens fairly easily but mild confusion. Appears comfortable currently and nontoxic HEENT head/scalp atraumatic, moist oral mucous membranes and oropharynx normal Head and Scalp: normocephalic Resp normal respiratory effort, no retractions, no use of accessory muscles and clear to auscultation bilaterally Auscultation: Negative for rales, rhonchi or wheezes Cardio regular rate, regular rhythm, S1 normal heart sound, S2 normal heart sound, no murmurs, no rub, no gallops and no clicks GI normal to inspection, nondistended, normoactive bowel sounds, soft to palpation and non-tender Extremity no clubbing, cyanosis or edema Extremity Narrative: Pedal pulses are 2+ Neuro oriented x3 and moves all extremities Speech: speech normal Psych Psych Narrative: Patient is groggy but answers questions appropriately Assessment & Plan Assessment/Plan (1) Herniation of intervertebral disc between L5 and S1: (2) Chronic bilateral low back pain with left-sided sciatica: PLAN: Plan Degenerative disc disease/HNP L5-S1 -Postop day 0 lumbar fusion L5-S1 -Management per primary service -We will add scheduled stool softener -Okay to discontinue IV fluids once p.o. intake is adequate Hypertension -Continue home metoprolol -Blood pressures are stable History of GERD -Continue home Protonix History of migraines -Continue as needed sumatriptan Tobacco abuse -Recommend cessation to improve healing and recurrence -We will make nicotine patch available if patient desires to utilize DVT prophylaxis -Per primary service Disposition: Patient is medically stable with no acute medical issues. We will sign off. Please reconsult if services are needed. Charges/Coding Visit Charges Inpatient E&M: 00446 Subs Hosp L1
[2023-06-03] MEDS: Lactated Ringers 1,000 ML 100 ML IV (22:04)
[2023-06-03] MEDS: oxyCODONE 5 MG Tablet PO (22:06)
[2023-06-03] MEDS: Pantoprazole Sodium 40 MG Tablet PO (22:06)
[2023-06-03] MEDS: Metoprolol(XL)Succ 25 MG Tablet PO (23:48)
[2023-06-03] MEDS: Docusate Sodium 100 MG Capsule PO (23:48)
[2023-06-04] VITALS (8 sets, daily range): BP systolic 102–120; BP diastolic 48–70; PULSE 72–84; RESP 16–18; TEMP 36.4–37.6; O2SAT 96–100
[2023-06-04] MEDS: Lactated Ringers 1,000 ML 100 ML IV ×3 (01:00→20:32)
[2023-06-04] MEDS: Acetaminophen 500 MG Tablet 1000 MG PO ×3 (03:51→20:30)
[2023-06-04] MEDS: Cefazolin 1 GM/50 ML BAG IV (03:51)
[2023-06-04] MEDS: oxyCODONE 5 MG Tablet PO ×4 (03:59→20:31)
--- NOTE | 2023-06-04 06:27 | NURSING ---
this nurse and SIGNAL OPERATOR TECHNICAL assisted patient to sitting position at side of bed. Pt said she felt a little dizzy but not bad. Pt sat for a few minutes then wanted to try and stand. pt assisted to standing position by this nurse and SIGNAL OPERATOR TECHNICAL. Pt felt ok standing up but stated her legs felt a little heavy. pt walked in place a few steps and then sat back down. Pt also wondering when she can have regular diet food.
[2023-06-04] MEDS: Metoprolol(XL)Succ 25 MG Tablet PO (08:19)
[2023-06-04] MEDS: Docusate Sodium 100 MG Capsule PO (08:20)
[2023-06-04] MEDS: Pantoprazole Sodium 40 MG Tablet PO ×2 (08:20→20:31)
[2023-06-04] MEDS: Ensure Surgery 237 ML LIQUID PO ×2 (08:25→11:34)
--- NOTE | 2023-06-04 10:33 | PCM.OPRPT ---
Report of Operation Date of Procedure: 06/03/23 Pre-Operative Diagnosis: Preoperative diagnosis: Degenerative disc disease L5-S1 and annular tear L4-5 Post-Operative Diagnosis: same Surgery/Procedure Performed:: #1 anterior lumbar interbody fusion L5-S1 CPT code 71882 #2 anterior spine plate L5-S1 CPT code 51738/59 #3 anterior spine plate L4-5 CPT code 93607/59 #4 anterior lumbar interbody fusion L4-5 CPT code 11758/51 #5 insertion of cage L5-S1 CPT code 94220 #6 insertion of cage at L4-5 CPT code 81403/51 Surgeon: Co surgeon: Dr. Abdoul Perez Type of Anesthesia: General Estimated Blood Loss (mL): 200 Description of Procedure: HPI: Patient is a 3-year-old female evaluated by Dr. Honeycutt for lumbar degenerative disc disease. She is felt to be appropriate for L4-L5 and L5-S1 anterior lumbar interbody fusion as well as posterior decompression and fusion. Vascular surgery is requested for exposure for the anterior interbody fusion component of the operation. She is taken now for elective L4-L5 and L5-S1 instrumentation. Description of procedure: Upon obtaining form consent and verification correct patient procedure site patient was taken to the operating room she was placed under general anesthesia. She is then positioned prepped and draped in usual sterile fashion a time was performed. Oblique incision was made in the left lower quadrant inferior to the umbilicus. Bovie electrocautery was dissect down through subcutaneous tissue and self-retaining retractors put in position. The fascia was then incised transversely with relaxing counterincision inferior medially and superior laterally. The rectus abdominis muscle was then mobilized circumferentially and retracted medially at which point blunt dissection was used to create a plane between the peritoneum and the posterior aspect of the abdominal wall. The abdominal contents were then mobilized medially and off of the posterior sheath of the abdomen. The posterior sheath was then divided vertically with Metzenbaum scissors and further mobilization of the abdominal contents toward the midline performed. Once satisfactory mobilization and retraction was obtained a wet lap sponge was placed in position and the rectus muscle now retracted laterally. An Omni retractor was then brought in the field and placed in the position and further combination of blunt and Bovie dissection as well as some sharp dissection was used to mobilize the left common external and internal iliac artery and vein. These were then retracted laterally exposing the L5-S1 disc space. This point Dr. Honeycutt performed the discectomy and hardware implantation which she will describe in more detail. Next the iliac arteries retracted medially and the L4-L5 disc space visualized. There was some difficulty getting appropriate vessel retraction so the iliac artery actually was mobilized medially and laterally depending on which portion of the disc space we are working on. Ultimately Dr. Honeycutt performed his portion of the discectomy and implant which she also will describe in more detail. After this was completed the field was inspected for hemostasis and the abdominal contents allowed to remove return to their [place] position while inspecting the vessels for satisfactory stasis. Next the Omni retractor was removed and the fascia closed with strata fix suture. The superficial incision was then irrigated with saline and closed with 2-0 Vicryl, 3-0 Vicryl, 4 Monocryl and Dermabond for the skin. At the conclusion of this portion of the case the patient was flipped and posterior approach performed by Dr. Honeycutt separately.
--- NOTE | 2023-06-04 11:03 | CASEMGMT ---
LEEANN TOBIAS Assessment: Face to Face with pt for initial transition planning/care coordination assessment. RN JATINDER introduced self and role at [facility], pt voices understanding and consents to assessment. Pt is A&O x4 and answers all questions appropriately at this time. Pt sitting up in chair in no distress. Care providers, pharmacy, and demographics verified/updated. Admitting Dx: 360 lumbar fusion L5-S1 with laminectomy PCP:[facility] Specialists:Yinka, ortho; Ananda, OR Preferred Pharmacy: [facility] Retail Insurance: [employer] Prescription Benefit: yes LNOK: Melody Womack, mother; Barry Mata, sig other Living Arrangements: Pt will dc to her sig other's home for short term which is a single story home with 3 steps to enter with a rail. Pt reports prior to surgery she was I in ADL's. Pt denies concerns at home. She states her mother will also check in on her when her sig other is at work. Transportation: Pt drives self and denies concerns with transportation. Pt mother or sig other will transport pt until she can drive again. DME:Shower chair HHC/SNF: Denies hx of Pt states no concerns with going home at time of dc. Pt is interested in a FWW. Provided pt with a list of local in network DME companies, pt chose [employer]. Pt states no further concerns/needs. CM to follow. Advised pt to ask CM if any further question/concerns/needs arise, voices understanding. Pt Goal: Home with sig other Plan: Home with sig other, FWW
--- NOTE | 2023-06-04 15:20 | CASEMGMT ---
LEEANN TOBIAS notified that pt is interested in a rollator. Spoke with [facility] and there is a $59.95 up front fee for this. LEEANN TOBIAS into pt room, pt states she is fine with the fee and she does want the rollator instead. Pt denies any other needs at this time.
[2023-06-05] VITALS (9 sets, daily range): BP systolic 101–121; BP diastolic 44–64; PULSE 85–87; RESP 16–18; TEMP 36.8–37.5; O2SAT 95–100
[2023-06-05] MEDS: oxyCODONE 5 MG Tablet PO ×3 (03:06→16:18)
[2023-06-05] MEDS: Acetaminophen 500 MG Tablet 1000 MG PO ×3 (03:07→20:26)
[2023-06-05] MEDS: Docusate Sodium 100 MG Capsule PO (08:27)
[2023-06-05] MEDS: Metoprolol(XL)Succ 25 MG Tablet PO (08:29)
[2023-06-05] MEDS: Pantoprazole Sodium 40 MG Tablet PO ×2 (08:29→20:27)
[2023-06-05] MEDS: Ondansetron 4 MG/2 ML Vial IV (08:30)
--- NOTE | 2023-06-05 10:36 | CASEMGMT ---
RN JATINDER sent DME referral for rollator to [facility] via [facility].
--- NOTE | 2023-06-05 13:01 | PCM.PN.ORT ---
Subjective Subjective Seen on rounds. She started having flatulence this morning. Her abdomen is soft and not tender. Her left leg pain is completely gone and she is very pleased about that. She is already been up today and did some steps. She is worried about a walker at home as she will have to sometimes go to the store and she would like a rollator instead and I think that is perfectly reasonable as she might get tired as she walks and she will be able to sit down. We will order that and lieu of a regular walker. Logically she is intact in both lower extremities. Pain is well controlled with oxycodone and occasional Tylenol. I am very pleased with her progress she will probably be able to go home tomorrow. Objective Data Objective Data Vital Signs: Vital Signs Temp Pulse Resp BP Pulse Ox O2 Del Method O2 Flow Rate 98.3 F 85 18 121/54 H 97 Room Air 2 06/05/23 09:05 06/05/23 09:05 06/05/23 09:05 06/05/23 09:05 06/05/23 10:00 06/05/23 10:00 06/04/23 00:26 Oxygen Flow Rate (L/min) 2 Oxygen Delivery Method Room Air Weight: 176 lb 5.917 oz Body Mass Index (BMI) 26.7 Intake & Output: Intake and Output for Last 24 Hours 06/03/23 06/04/23 06/05/23 23:59 23:59 23:59 Intake Total 1262 / 1262 2763.33 / 2763.33 1574.25 / 1574.25 Output Total 750 / 1350 1450 / 1450 900 / 900 Balance 512 / -88 1313.33 / 1313.33 674.25 / 674.25
[2023-06-06] VITALS (7 sets, daily range): BP systolic 110–112; BP diastolic 59–65; PULSE 70–75; RESP 16; TEMP 36.7–37.1; O2SAT 95–99
[2023-06-06] MEDS: oxyCODONE 5 MG Tablet PO (02:41)
[2023-06-06] MEDS: Acetaminophen 500 MG Tablet 1000 MG PO ×2 (04:32→11:21)
[2023-06-06] MEDS: Docusate Sodium 100 MG Capsule PO (07:48)
[2023-06-06] MEDS: Metoprolol(XL)Succ 25 MG Tablet PO (07:49)
[2023-06-06] MEDS: Pantoprazole Sodium 40 MG Tablet PO (07:49)
--- NOTE | 2023-06-06 12:58 | CASEMGMT ---
LEEANN TOBIAS informed by [employer] that they only have a luh rollator in stock but could drop ship a rollator to her home and it can be delivered in 1-2 days. LEEANN TOBIAS in to pt. room to discuss pt's cjoice with her. LEEANN TOBIAS informed pt. that the rollator could be delivered in 1-2 days and she would be without something till then, or she could go back to just a walker and have that delivered to her room prior to D/C. Pt. voices understanding and states she prefers to have the rollator and states she would like to have it delivered to her house instead of going back to a walker. Pt. denies having any additional needs at this time. LEEANN TOBIAS updated [facility] via [employer] on pt's choice to have rollator delivered to her home.
--- NOTE | 2023-06-06 13:49 | CASEMGMT ---
RN CM informed by [facility] that they will try to call client in order to take the payment over the phone for the rollator. LEEANN CM in to pt. room and informed pt of this. Pt. voices understanding. No further concerns voiced at this time.
--- NOTE | 2023-06-06 14:47 | PCM.DC ---
Discharge Instructions Activity May shower in (days): 3 May resume sexual activity in: 6-8 weeks Lifting Restrictions: 15# Dressing / Incision Remove Dressing in: 2 days Follow Up Care Test Results: Test results from this visit will be discussed in further detail at your follow-up appointment, if applicable. Discharge Plan Admission Admit Date/Time: 06/03/23 05:34 Primary Reason for Your Visit: back fusion Attending Provider: Elan Honeycutt Primary Care Provider: Philip Waddell Consulting Providers: Mali Thomson; Raul Taranog; Joycelyn Gann; Joycelyn Hi; Jesus Del Rio; Marina Victor; Khushbu Jane; Jose Olson; Jose Reynolds; Campos Pichardo; Adolph Richardson; Sushila Waddell; Alexx Bradford; Petey Parker; Mark Kong; Naomi Araya; Anthony Wiley; Yaz Muro; Esteban Khan; Curtis Merchant; Martínez Tavares; Afsaneh Smith; Prieto De Los Santos; Afia Perrin HOME HEALTH SPECIALIST; Amos Urbina PA Discharge Orders/Prescriptions Prescriptions: No Action ibuprofen 400 mg tablet 400 mg PO Q8H PRN (Reason: Pain) baclofen 10 mg tablet 10 mg PO TID PRN (Reason: muscle spasm) Qty: 90 1RF pantoprazole 40 mg tablet,delayed release (DR/EC) 40 mg PO BID Qty: 180 1RF sumatriptan succinate 25 mg tablet 100 mg PO PRN metoprolol succinate 25 mg tablet extended release 24 hr 25 mg PO DAILY Qty: 30 12RF Referrals / Follow Up: Philip Waddell MD [Primary Care Provider] - Disposition Disposition (needs filled in before D/C Order can be placed): Home, Self Care
--- NOTE | 2023-06-06 14:53 | PCM.DC.SUM ---
Providers Date of Admission: 06/03/23 Primary Care Physician: Dr. Philip Waddell MD Attending Physician: Was admitted on Friday 3 days ago. She underwent 360 degree fusion at both the L4-5 and the L5-S1 levels. She is doing quite well now. She reports complete relief of her left leg pain. He states that her back already feels better than it did prior to surgery even though it still does hurt of course. Logically she is intact. Her dressings are both dry. She was given directions regarding her activities and her dressing care. She already has an appointment to see me couple of weeks from the surgery. He is doing well with her walker and is going home with a rollator. Her abdomen is soft even though it still a little full. Has a lot of flatulence now. I will see her again at follow-up. Consultations 06/03/23 17:04 Consult: Hospitalist Routine Consulting Provider: Willis Santillan Reason for Consult: Medical Management EMERGENT Consult: No MD Notified: Yes Date Notified: 06/03/23 Time Notified: 21:02 Method of Notification: Text Reason For Visit: 360 Lumbar Fusion L5-S1 with adrián Diagnosis Discharge Diagnosis (1) Herniation of intervertebral disc between L5 and S1: Status: Acute Code(s): M51.27 - Other intervertebral disc displacement, lumbosacral region (2) Chronic bilateral low back pain with left-sided sciatica: Status: Acute Code(s): M54.42 - Lumbago with sciatica, left side; G89.29 - Other chronic pain Medications at Discharge Home Medications ibuprofen 400 mg tablet 400 mg PO Q8H PRN Pain 11/30/21 metoprolol succinate 25 mg tablet,extended release 24 hr 25 mg PO DAILY BP #30 tabs 12/26/21 baclofen 10 mg tablet 10 mg PO TID PRN muscle spasm #90 tabs 01/02/23 pantoprazole 40 mg tablet,delayed release 40 mg PO BID GERD #180 tabs 01/02/23 sumatriptan succinate 25 mg tablet 100 mg PO PRN MIGRIANES 03/18/23 oxycodone-acetaminophen 5 mg-325 mg tablet 1 tab PO Q6H PRN pain 10 days #40 tabs 06/06/23 Weight / BMI Weight Weight: 176 lb 5.917 oz Body Mass Index (BMI) 26.7 D/C Instructions May shower in (days): 3 May resume sexual activity in: 6-8 weeks Meaningful Use Info Meaningful Use Diagnoses (Choose all that apply): None applicable Discharge Plan Admission Admit Date/Time: 06/03/23 05:34 Primary Reason for Your Visit: back fusion Attending Provider: Elan Honeycutt Primary Care Provider: Philip Waddell Consulting Providers: Mali Thomson; Raul Tarango; Joycelyn Gann; Joycelyn Hi; Jesus Del Rio; Marina Victor; Khushbu Jane; Jose Olson; Jose Reynolds; Campos Pichardo; Adolph Richardson; Susihla Waddell; Alexx Bradford; Petey Parker; Mark Kong; Naomi Araya; Anthony Wiley; Yaz Muro; Esteban Khan; Curtis Merchant; Martínez Tavares; Afsaneh Smith; Prieto De Los Santos; Afia Perrin NP; Amos Urbina PA Discharge Orders/Prescriptions Prescriptions: No Action ibuprofen 400 mg tablet 400 mg PO Q8H PRN (Reason: Pain) baclofen 10 mg tablet 10 mg PO TID PRN (Reason: muscle spasm) Qty: 90 1RF pantoprazole 40 mg tablet,delayed release (DR/EC) 40 mg PO BID Qty: 180 1RF sumatriptan succinate 25 mg tablet 100 mg PO PRN metoprolol succinate 25 mg tablet extended release 24 hr 25 mg PO DAILY Qty: 30 12RF oxycodone-acetaminophen 5-325 mg tablet 1 tab PO Q6H PRN (Reason: pain) 10 Days Qty: 40 0RF Referrals / Follow Up: Philip Waddell MD [Primary Care Provider] - Disposition Disposition (needs filled in before D/C Order can be placed): Home, Self Care
== END 2023-06-06 16:54 | disposition home or self-care (01) | DRG 454 ==
LOC: ACINP 05:34 → MS3 06-04 10:13
PROVIDERS: Admitting Provider Orthopaedic Surgery; PCP Internal Medicine; Referring Provider Orthopaedic Surgery; Visit Provider Orthopaedic Surgery
PROC: 0SG00A0 Fusion of Lumbar Vertebral Joint with Interbody Fusion Device, Anterior Approach, Anterior Column, Open Approach (ICD-10-PCS; principal; 2023-06-03 07:00)
DX: M51.17 Intervertebral disc disorders with radiculopathy, lumbosacral region (principal); Q21.12 Patent foramen ovale; I10 Essential (primary) hypertension; F17.210 Nicotine dependence, cigarettes, uncomplicated; K21.9 Gastro-esophageal reflux disease without esophagitis; M51.35 Other intervertebral disc degeneration, thoracolumbar region; G89.29 Other chronic pain; Z79.899 Other long term (current) drug therapy; Z87.820 Personal history of traumatic brain injury; Z86.16 Personal history of COVID-19
CPT/HCPCS: 72020; 72100; 82962; 88304; 94668; 97162; 97530; 99406; A4648; C1713; J7120; J2405; J3475

== ENCOUNTER 2023-06-21 07:43 | Emergency (ER) | payer OTHER, SELFPAY ==
[2023-06-21 07:44] VITALS: BP 107/66; PULSE 83; RESP 15; TEMP 36.4; O2SAT 98; BMI 25.5
--- NOTE | 2023-06-21 08:09 | VDLE_ITS ---
Reason For Study: Pain LLE Procedure LEFT This is a venous duplex using B-mode, color GSV is normal. flow and spectral Doppler. CFV is compressible, spontaneous, phasic, Exam performed portable in ED. competent, and demonstrates normal A preliminary report was called and/or faxed augmentation. to Dr. El. FV is compressible, spontaneous, phasic, competent and demonstrates normal augmentation. POP V is compressible, spontaneous, phasic, competent and demonstrates normal augmentation. T/P Trunk is compressible. PTV is compressible. LT PerV is compressible. VL/Venous Duplex US, Unilateral Interpretation Summary Deep veins of the left lower extremity are patent and compressible segmentally. There is no evidence of left lower extremity deep vein thrombosis. The left great saphenous vein dany ears patent and compressible segmentally. Ordering Physician: Lucas El Referring Physician: Philip Waddell Performed By: Angelique Robb, AYALA, RVT
--- NOTE | 2023-06-21 08:11 | EDS_ITS ---
HPI History of Present Illness Chief Complaint: Lower Extremity Injury Detail of Chief Complaint: Left leg pain Informant: patient and spouse/S.O. Narrative Narrative: Patient presents with left leg pain that started around 7 AM. Patient states it woke her from sleep. It feels like a cramp in her calf that radiates up her thigh and just will go away. Patient felt lightheaded and dizzy on the way to the hospital. She is concerned because she had surgery on her back on June 08 and had a fusion done here at [facility] by Dr. Ospina. She denies any worsening back pain. She had no injury. No history of PE or DVT. Patient also states that she has a headache that she describes as behind her left eye and rates it about a 7 out of 10. She complains of some mild photophobia. She does have prior history of migraines. [facility] Medical History Abnormal echocardiogram Anxiety Arthritis Back pain Cardiology follow-up encounter Cervical radiculopathy Chronic back pain Dermatitis Easy bruising Gastric reflux GERD (gastroesophageal reflux disease) History of COVID-19 History of depression History of echocardiogram History of edema History of IBS History of irregular heartbeat History of pain when walking History of steroid therapy History of stress test Hypotension Injury of head and neck Leg cramps Migraine Migraine headache NSVT (nonsustained ventricular tachycardia) Palpitations PONV (postoperative nausea and vomiting) Premature ventricular contraction Seizures Shortness of breath on exertion Smoker Vertigo Home Medications ibuprofen 400 mg tablet 400 mg PO Q8H PRN Pain 11/30/21 [History Last Taken Unknown] metoprolol succinate 25 mg tablet,extended release 24 hr 25 mg PO DAILY BP #30 tabs 12/26/21 [Rx Last Taken 12/31/21] baclofen 10 mg tablet 10 mg PO TID PRN muscle spasm #90 tabs 01/02/23 [Rx Last Taken Unknown] pantoprazole 40 mg tablet,delayed release 40 mg PO BID GERD #180 tabs 01/02/23 [Rx Last Taken Unknown] sumatriptan succinate 25 mg tablet 100 mg PO PRN MIGRIANES 03/18/23 [History Last Taken Unknown] oxycodone-acetaminophen 5 mg-325 mg tablet 1 tab PO TID PRN pain 10 days #30 tabs 06/19/23 [Rx Last Taken Unknown] hydrocodone-acetaminophen 5-325mg 5mg-325mg 1 tab PO Q4H PRN PRN Pain 2 days #10 TABLETS 06/21/23 [Rx Last Taken Unknown] methylprednisolone 4 mg tablets in a dose pack (Medrol (Earnest)) 4 mg PO DAILY #21 tabs 06/21/23 [Rx Last Taken Unknown] Allergy/AdvReac Type Severity Reaction Status Date / Time doxycycline AdvReac Vomiting/di Verified 06/21/23 07:47 arrhea Family History Father Heart disease Colon cancer Grandmother Breast cancer Unknown Heart disease Grandfather CVA (cerebral vascular accident) Mother Hypertension Hyperlipemia Surgical History H/O eye surgery H/O knee surgery History of ankle surgery History of brain surgery History of ear surgery History of laparoscopy History of LAVH Hx laparoscopic cholecystectomy Social History household members: none Smoking Status: Current every day smoker tobacco type: cigarettes Tobacco: How many years used: 30 alcohol intake: never substance use type: does not use caffeine: Yes Type: carbonated beverages Number of servings: 3 and coffee Number of servings: 1 what type of physical activity do you participate in: walking seatbelt use: always do you feel safe at home: Yes additional social history: - ROS ROS ED Review of Systems ROS Unobtainable: other Constitutional Constitutional ED: Reports lethargy; Denies chills, fever(s), sweats or weight loss Eyes Eyes: Denies blurry vision, change in vision or diplopia ENT ENT ED: Denies rhinorrhea or sore throat Cardiovascular Cardiovascular: Denies chest pain, orthopnea or racing heartbeat Respiratory/Chest Respiratory/Chest: Denies cough, dyspnea, dyspnea on exertion, orthopnea or sputum Gastrointestinal Gastrointestinal: Denies abdominal pain, diarrhea, nausea or vomiting Genitourinary Genitourinary ED: Denies dysuria, hematuria or urinary frequency Musculoskeletal Musculoskeletal: Reports other Details: Left leg pain ; Denies arthralgias, back pain, myalgias or neck pain Integumentary Denies abscess, Abrasions or rash Neurologic Neurologic: Reports headache(s); Denies weakness Psychiatric Psychiatric: Denies anxiety, depression or suicidal thoughts Endocrine Endocrinology: Denies polydipsia, polyphagia or polyuria Hematologic/Lymphatic Hematologic/Lymphatic: Denies easy bleeding, easy bruising or lymphadenopathy Allergic/Immunologic Allergic/Immunologic ED: Denies mouth swelling, tongue swelling or urticaria EXAM Physical Exam Const Vital Signs: 06/21/23 07:44 Temperature 97.6 F L Temperature Source Temporal Pulse Rate 83 Respiratory Rate 15 Blood Pressure 107/66 Blood Pressure Mean 79 Pulse Ox 98 Oxygen Delivery Method Room Air Positive well nourished and well developed General Appearance ED: well developed and NAD HEENT Reports TM's clear and moist mucous membranes normocephalic and atraumatic; Negative for trauma or tenderness Tympanic Membrane ED: Yes TM's clear Eyes PERRL and EOMs intact bilaterally General Eye ED: Negative for pale conjunctiva or scleral icterus Neck no lymphadenopathy, supple and no JVD General: Negative for tenderness Chest Wall inspection of chest normal and palpation of chest normal Chest: Negative for tenderness Resp normal respiratory effort and clear to auscultation bilaterally Effort and Inspection: Negative for respiratory distress or pain with movement Auscultation: Negative for rhonchi, wheezes or diminished lung sounds Cardio regular rate, regular rhythm, S1 normal heart sound, S2 normal heart sound and no murmurs Peripheral Pulses: pulses 2+ throughout GI normal to inspection, nondistended, normoactive bowel sounds, soft to palpation, non-tender, non-distended and no masses Back/Spine no CVA tenderness and no thoracic nor lumbar tenderness Back/Spine Narrative: Patient has recent scar to lumbar spine that appears to be healing well. There is no erythema or warmth. No significant tenderness or fluctuance noted. Extremity normal to inspection Extremity Narrative: Left leg-no evidence of edema or ropes or cords palpated. She has normal range of motion. Negative straight leg raises. Neurovascularly intact. General Extremety ED: Negative for edema General Extremity: Negative for edema Neuro oriented x3, CN's II-XII intact bilaterally, no sensory deficits noted and gait normal Sensorium / Orientation: awake, alert, oriented to person, oriented to place and oriented to time Motor Exam: strength 5/5 throughout and strength abnormal Psych mental status grossly normal Skin no rashes or lesions noted and no wounds MDM MDM MDM Narrative Medical decision making narrative: Patient presents with left leg pain about 2 weeks postsurgery. Patient had a lumbar fusion. Sudden onset of pain in her left leg with no increase in her back pain. In the differential would be DVT versus radiculopathy. Patient exam reveals some mild diffuse tenderness to palpation over the left leg with negative straight leg raises and she is neurovascular intact. Patient had a CBC with differential that showed a normal white count of 5.0 with hemoglobin 12 and platelet count of 414. Chemistries unremarkable. I did obtain venous Doppler left lower extremity that was negative for DVT. Patient case discussed with her surgeon Dr. Honeycutt. He asked that I start patient on a Medrol Dosepak. He did not have to perform any type of decompression during the surgery. Etiology of her pain is unclear. There is possibility of an S1 radiculopathy potentially. No red flag symptoms of cauda equina on exam. Dr. Honeycutt did not feel any imaging was indicated at this time and I am in agreement. Patient had her headache treated and that was much improved after Toradol as well as Reglan and Benadryl. She continued complaint of pain in her left leg and was given 4 mg morphine IV. I will write her prescription for few [place] for pain for home. Patient to follow-up with her surgeon. Lab Data Attestation: I reviewed the patient's lab results. Labs: Laboratory Results - last 24 hr 06/21/23 08:21 WBC 5.0 RBC 4.17 L Hgb 12.3 Hct 39.4 MCV 94.5 MCH 29.5 MCHC 31.2 L RDW Std Deviation 43.9 RDW Coeff of Zara 12.8 Plt Count 414 MPV 10.6 Immature Gran % (Auto) 0.400 Neut % (Auto) 44.3 L Lymph % (Auto) 37.3 [place] % (Auto) 9.4 Eos % (Auto) 7.2 H Baso % (Auto) 1.4 H Absolute Neuts (auto) 2.2 Absolute Lymphs (auto) 1.86 Nucleated RBC % 0 Differential Comment SCANNED Reactive Lymphocytes 1+ Sodium 140 Potassium 3.9 Chloride 110 H Carbon Dioxide 28.0 Anion Gap 2 L BUN 8 Creatinine 0.71 Estim Creat Clear Calc 97.75 Est GFR (MDRD) Af Amer 113 Est GFR (MDRD) Non-Af 93 BUN/Creatinine Ratio 11.3 Glucose 97 Calcium 9.3 Discharge Plan Triage Chief Complaint: Lower Extremity Injury ED Provider: Ungur,Remus Dx/Rx/DC Orders Clinical Impression: Leg pain, left Instructions: ED Pain, Acute, Uncertain Cause Prescriptions: New methylprednisolone [Medrol (Earnest)] 4 mg tablets,dose pack 4 mg PO DAILY Qty: 21 0RF hydrocodone-acetaminophen [hydrocodone-acetaminophen] 5-325 mg tablet 1 tab PO Q4H PRN PRN (Reason: Pain) 2 Days Qty: 10 0RF No Action ibuprofen 400 mg tablet 400 mg PO Q8H PRN (Reason: Pain) baclofen 10 mg tablet 10 mg PO TID PRN (Reason: muscle spasm) Qty: 90 1RF pantoprazole 40 mg tablet,delayed release (DR/EC) 40 mg PO BID Qty: 180 1RF oxycodone-acetaminophen 5-325 mg tablet 1 tab PO TID PRN (Reason: pain) 10 Days Qty: 30 0RF sumatriptan succinate 25 mg tablet 100 mg PO PRN metoprolol succinate 25 mg tablet extended release 24 hr 25 mg PO DAILY Qty: 30 12RF Primary Care Provider: Philip Waddell Referrals: Philip Waddell MD [Primary Care Provider] - Elan Honeycutt DO [Med Staff - Active Staff] - 3-5 Days Disposition Disposition: Home, Self Care
[2023-06-21] MEDS: Metoclopramide 10 MG/2 ML Vial IV (08:31)
[2023-06-21] MEDS: 0.9% Normal Saline (1000mL) 1,000 ML 1000 ML IV (08:31)
[2023-06-21] MEDS: Ketorolac 30 MG/ML Syringe IV (08:31)
[2023-06-21 08:32] LABS: Absolute Lymphocyte Count 1.86 X10^3/uL (0.83-4.51); Absolute Neutrophil Count 2.2 X10^3/uL (2.0-7.7); Basophil# 0.07 X10^3/uL; Basophil% 1.4 % (0-1); Eosinophil# 0.36 X10^3/uL; Eosinophils% 7.2 % (0-5); Hematocrit 39.4 % (37-47); Hemoglobin 12.3 g/dL (12.0-15.0); Lymphocyte # 1.86 X10^3/ul (0.83-4.51); Lymphocyte % 37.3 % (19-41); Mean Corp Hgb Conc 31.2 g/dL (32-36); Mean Corpuscular Hgb 29.5 pg (27.0-32.0); Mean Corpuscular Volume 94.5 fL (81-99); Mean Platelet Vol. 10.6 fl (6.2-12.0); Monocyte# 0.47 X10^3/uL; Monocyte% 9.4 % (0-10); NRBC Flagged by Analyzer 0 % (0-5); Neutrophil % 44.3 % (47-70); POSITIVE MORPHOLOGY YES; Platelet Count 414 K/mm3 (150-450); RBC Distribution Width CV 12.8 % (11.6-14.6); RBC Distribution Width SD 43.9 fl (35.1-43.9); Red Blood Count 4.17 M/mm3 (4.2-5.4)
[2023-06-21] MEDS: DiphenhydrAMINE 50 MG/ML Syringe 25 MG IV (08:32)
[2023-06-21 09:02] LABS: Differential Indicated SCAN CRITERIA MET
[2023-06-21 09:18] LABS: Anion Gap 2 (5-15); BUN 8 mg/dL (7-18); BUN/Creat Ratio 11.3 RATIO (10-20); Calcium,Total 9.3 mg/dL (8.5-10.1); Chloride 110 mmol/L (98-107); Creatinine, Serum 0.71 mg/dL (0.55-1.02); EST Glomerular Filtration Rate 93 mL/min (>60); Est Glom Filt Rate - Afr Amer 113 mL/min (>60); Estimated Creatinine Clearance 97.75 ml/min; Glucose 97 mg/dL (74-106); Potassium 3.9 mmol/L (3.5-5.1); Sodium Level 140 mmol/L (136-145)
[2023-06-21 09:38] LABS: Differential Comment SCANNED; Reactive Lymphocyte 1+
[2023-06-21] MEDS: Ondansetron 4 MG/2 ML Vial IV (09:46)
[2023-06-21] MEDS: Morphine 4 MG/ML Syringe IV (09:48)
[2023-06-21 11:35] VITALS: BP 129/76; PULSE 86; RESP 14; TEMP 36.4; O2SAT 99
== END 2023-06-21 11:36 | disposition home or self-care (01) ==
PROVIDERS: Emergency Provider Emergency Medicine; PCP Internal Medicine; Referring Provider Emergency Medicine; Visit Provider Emergency Medicine
DX: M79.605 Pain in left leg (principal); F17.210 Nicotine dependence, cigarettes, uncomplicated; Z86.16 Personal history of COVID-19
CPT/HCPCS: 80048; 85025; 93971; 96374; 96375; 99283; J7030; J2405

== ENCOUNTER → 2023-08-04 | Outpatient (CLI) | payer OTHER, SELFPAY ==
--- OUTSIDE RECORDS SUMMARY | 2023-08-04 15:40 | XMS RPT_ITS | CCD ---
Author Name Unknown Address [address] [place] [address] Organization [facility] Care Team Providers Care Arts Administrator Name Role Phone LETTY WASHINGTON Unavailable Unavailable PINO LATIF Unavailable Unavailable PINO LATIF Unavailable Unavailable PINO LATIF Unavailable Unavailable PROVIDER, UNKNOWN Unavailable Unavailable PROVIDER, UNKNOWN Unavailable Unavailable PROVIDER, UNKNOWN Unavailable Unavailable Martínez Shepard Unavailable Bairon THAO, Philip Russell Primary Care Provider Momo Ford MD, Harry W Primary Care Provider Allergies Allergy Classification Reported Allergen(s) Allergy Type Date of Onset Reaction(s) Facility (1 source) doxycycline Drug Allergy [facility] Repository (2 sources) Doxycycline Drug Allergy 05-29-2016 Vomiting [facility] Work Phone: Medications Completed/Discontinued Medications Medication Drug Class(es) Dates Sig (Normalized) Sig (Original) aspirin 81 mg chewable tablet (1 source) Platelet Aggregation Inhibitor, Nonsteroidal Anti-inflammatory Drug Start: 09-13-2021 aspirin 81 mg chewable tablet Take 81 mg by mouth as needed. 0 09/13/2021 Active Problems Active Problems Problem Classification Problem Date Documented Da te Episodic/Chronic Cardiac dysrhythmias (3 sources) Nonsustained ventricular tachycardia ; Translations: [Ventricular tachycardia] Onset: 01-27-2022 Chronic Cardiac dysrhythmias (2 sources) Palpitations; Translations: [Palpitations] Onset: 01-27-2022 Episodic Conditions associated with dizziness or vertigo (1 source) Vertigo; Translations: [Dizziness and giddiness] Onset: 01-28-2022 01-28-2022 Episodic Headache; including migraine (1 source) Headache; Translations: [Headache] Onset: 01-28-2022 01-28-2022 Episodic Malaise and fatigue (1 source) Fatigue; Translations: [Other fatigue] Onset: 01-28-2022 01-28-2022 Episodic Nonspecific chest pain (1 source) Chest pain; Translations: [Chest pain, unspecified] Onset: 01-28-2022 01-28-2022 Episodic Other ear and sense organ disorders (2 sources) Mixed conductive AND sensorineural hearing loss; Translations: [Mixed conductive and sensorineural hearing loss, unspecified] Onset: 11-11-2006 01-27-2022 Chronic Other gastrointestinal disorders (2 sources) Irritable bowel syndrome; Translations: [Irritable bowel syndrome without diarrhea] Onset: 04-14-2017 01-27-2022 Chronic Other nervous system disorders (2 sources) Neuropathy; Translations: [Polyneuropathy, unspecified] Onset: 04-14-2017 01-27-2022 Chronic Other non-traumatic joint disorders (1 source) Pain in right knee; Translations: [Pain in joint, lower leg] 09-14-2020 Episodic Other upper respiratory disease (2 sources) Seasonal allergy; Translations: [Other seasonal allergic rhinitis] Onset: 04-14-2017 01-27-2022 Chronic Residual codes; unclassified (1 source) Family history of cancer of colon; Translations: [Family history of malignant neoplasm of digestive organs] Onset: 01-27-2022 01-27-2022 Episodic Residual codes; unclassified (1 source) Family history of malignant neoplasm of breast in first degree relative; Translations: [Family history of malignant neoplasm of breast] Onset: 01-28-2022 01-28-2022 Episodic Spondylosis; intervertebral disc disorders; other back problems (1 source) Degeneration of cervical intervertebral disc; Translations: [Other cervical disc degeneration, unspecified cervical region] Onset: 01-28-2022 01-28-2022 Chronic Spondylosis; intervertebral disc disorders; other back problems (1 source) Lumbar radiculopathy; Translations: [Radiculopathy, lumbar region] Onset: 01-27-2022 01-27-2022 Episodic Substance-related disorders (1 source) Nicotine dependence; Translations: [Nicotine dependence, cigarettes, uncomplicated] Onset: 01-27-2022 01-27-2022 Chronic Past or Other Problems Problem Classification Problem Date Documented Date Episodic/Chronic Biliary tract disease (2 sources) Chronic cholecystitis; Translations: [Chronic cholecystitis] Onset: 11-20-2005 11-20-2005 Episodic Cancer of cervix (2 sources) Low grade squamous intraepithelial lesion on cervical Papanicolaou smear; Translations: [Low grade squamous intraepithelial lesion on cytologic smear of cervix (LGSIL)] Onset: 11-19-2016 11-19-2016 Episodic Ovarian cyst (2 sources) Cyst of left ovary; Translations: [Unspecified ovarian cyst, left side] Onset: 11-20-2016 11-20-2016 Episodic Residual codes; unclassified (2 sources) History of headache; Translations: [Personal history of other specified conditions] Onset: 04-14-2017 01-27-2022 Episodic Results Test Name Value Interpretation Reference Range Facil ity Vital Signs Date Time Vital Sign Value Performing Clinician Faci lity 01-28-2022 14:23-0400 Body height 170.2 cm Nahun Fontenot MD Work Phone: [facility] 01-28-2022 14:23-0400 Body weight 69.4 kg Nahun Fontenot MD Work Phone: [facility] 01-28-2022 14:23-0400 Diastolic blood pressure 78 mm[Hg] Nahun Fontenot MD Work Phone: [facility] 01-28-2022 14:23-0400 Heart rate 61 /min Nahun Fontenot MD Work Phone: [facility] 01-28-2022 14:23-0400 Respiratory rate 18 /min Nahun Fontenot MD Work Phone: [facility] 01-28-2022 14:23-0400 SaO2% (BldA) [Mass fraction] 99 % Nahun Fontenot MD Work Phone: [facility] 01-28-2022 14:23-0400 Systolic blood pressure 119 mm[Hg] Nahun Fontenot MD Work Phone: [facility] Encounters Encounter Date Encounter Type Care Provider Facility Start: 01-28-2022 End: 01-28-2022 Patient encounter procedure Nahun Fontenot MD Work Phone: [facility] Procedures Date Procedure Procedure Detail Performing Clinician Start: 01-28-2022 Ecg routine ecg w/le ast 12 lds w/i&r Nahun Fontenot MD Work Phone: Start: 09-14-2020 Radiologic exam knee complete 4/more views Amos Gonzales DO Work Phone: Start: 07-01-2017 Adult depression scr eening assessment Nahun Fontenot MD Work Phone: Start: 08-22-2016 Mammography Nahun so MD Work Phone: Plan of Treatment Date Care Activity Detail Author Start: 03-21-2023 Influenza vaccination Influenza Vacc ine (#1) [facility] Start: 07-21-2022 Depression Assessment Depression Ass essment [facility] Start: 03-21-2022 Influenza vaccination INFLUENZA (#1) [facility] Start: 08-19-2021 HPV TESTING HPV TESTING [facility] Start: 08-19-2021 PAP TESTING PAP TESTING [facility] Start: 12-18-2019 COLOGUARD (FIT-DNA) COLOGUARD (FIT-D NA) [facility] Start: 12-18-2019 Colonoscopy COLONOSCOPY [facility] Start: 12-18-2019 COLORECTAL CANCER SCREENING COLORECTAL CANCER SCREENING [facility] Start: 12-18-[address] [facility] Start: 12-18-2019 DIABETES SCREEN DIABETES SCREEN [facility] Start: 12-18-2019 Diabetes Screening Diabetes Screenin g [facility] Start: 12-18-2019 FECAL OCCULT BLOOD FECAL OCCULT BLOO D [facility] Start: 12-18-2019 Lipid 1996 panel - S jenae or Plasma Lipid Screening [facility] Start: 12-18-2019 LIPID SCREEN LIPID SCREEN [facility] Start: 12-18-2019 SIGMOIDOSCOPY SIGMOIDOSCOPY [facility] Start: 07-01-2018 Adult depression scr eening assessment DEPRESSION SCREENING [facility] Start: 08-22-2017 Mammography [facility] Start: 1993 Urine microalbumin profile [facility] Start: 1992 HEPATITIS C SCREENING HEPATITIS C SC REENING [facility] Start: 1992 HIV SCREENING HIV SCREENING [facility] Start: 1980 PNEUMOCOCCAL (1 - PCV) PNEUMOCOCCAL (1 - PCV) [facility] Start: 1980 Pneumococcal vaccination Pneum ococcal Vaccine (1 - PCV) [facility] Start: 06-19-1975 COVID-19 VACCINE (#1) COVID-19 VACCI NE (#1) [facility] Start: 1974 Hepatitis B Vaccine (1 of 3 - 3-dose series) Hepatitis B Vaccine (1 of 3 - 3-dose series) [facility] Immunizations Immunization Date Immunization Notes Care Provider Fa cility 08-09-2018 influenza, seasonal, injectable Nahun Fontenot MD Work Phone: [facility] Work Phone: 08-09-2018 influenza, seasonal, injectable, preservative free Nahun Fontenot MD Work Phone: [facility] Work Phone: 08-09-2018 influenza virus vaccine, unspecified formulation Xr [facility] 05-19-2017 influenza, seasonal, injectable Nahun Fontenot MD Work Phone: [facility] 05-14-2017 influenza, injectabl e, quadrivalent, preservative free Nahun Fontenot MD Work Phone: [facility] Work Phone: 05-31-2011 influenza virus vaccine, unspecified formulation Nahun Fontenot MD Work Phone: [facility] Payers Date Payer Category Payer Unknown [employer] PPO [id number] 2021-Present [phone] [address] [place] [address] PPO [id number] Unknown [id number] Social History Date Type Detail Facility Start: 05-29-2016 End: 07-01-2017 Tobacco smoking status NHIS Smokes tobacco daily [facility] History of tobacco use Cigarette Smoker C [facility] Start: 05-29-2016 End: 07-01-2017 Tobacco use and exposure Smokeless tobacco non-user [facility] Start: 09-14-2020 End: 01-28-2022 Alcohol intake Current non-drinker of alcohol (finding) [facility] Start: 1975 Sex Assigned At Not on file C [facility] Start: 08-14-2020 End: 01-28-2022 Exposure to SARS-CoV-2 (event) Not sure [facility] Start: 09-14-2020 History of Social function [facility] Start: 09-14-2020 Tobacco use panel [facility] National Score (1-10 0), lower number is lower risk Not on file [facility] Clinical Notes 09-14-2020 to 01-28-2022 Genesis Hughes MA - 01/28/2022 2:22 PM Rai Fontenot MD - 01/28/2022 2:20 PM Baljit Rao (Rt), Anne - 09/14/2020 8:40 AM EST Note Date & Type Note Facility 01-28-2022 Note HNO ID: [id number] Author: Nahun Fontenot MD Service: ? Author Type: Physician Type: Progress Notes Filed: 02/10/2022 9:08 PM Note Text: PRIMARY CARE PHYSICIAN: Philip Waddell ([facility]) [address] [place] [address] REFERRING PHYSICIAN: Martínez Shepard MD ([facility]) [address] [address] Patient Care Team: Philip Waddell MD as PCP - General (Internal Medicine) Martínez Shepard as Specialty Cook Helper Dessert (Cardiology) CHIEF COMPLAINT: Evaluation for arrhythmia HISTORY OF PRESENT ILLNESS: Ms. Mata is a 46 year old female who presents today for evaluation of arrhythmia, consultation from her general nursery nurse Dr. Shepard in [place]. She is referred for evaluation of PVCs and nonsustained VT documented by cardiac monitoring. Ms. Mata states that she has been experiencing for the past couple of months intermittent palpitations, and also chest discomfort. She feels that her heart skips a beat and also sometimes she feels rapid irregular heartbeats. These episodes sometimes takes the breath away. She states the symptoms occur frequently, and have been increasing in frequency, more recently occurring every day or two. The episodes of symptoms might last for a couple of minutes. She also has constant fatigue, all the time. She also experiences episodes where she feels the entire left side of her body getting hot and numb --- she can feel like the left side of her body is on fire. 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 She has been evaluated by general nursery nurse Dr. Shepard, underwent testing including echocardiogram and also a cardiac stress test. The stress test was unremarkable, the echocardiogram remarkable only for possible small PFO or ASD. I have confirmed and edited as necessary, the PFSH and ROS obtained by others. PAST MEDICAL HISTORY Diagnosis Date - Nonsustained ventricular tachycardia (HCC) - Palpitations - Pap smear abnormality of cervix with LGSIL PAST SURGICAL HISTORY Procedure Laterality Date - ANKLE SURGERY HX Right 1994, 2012 - BRAIN SURGERY HX 2005 TBI; had hematoma evacuated - COLONOSCOPY SCREENING 12/2021 - CONIZATION OF CERVIX, LEEP 1991 - EGD W/O BRSH SPEC VARICIES INJ 12/2021 - EYE SURGERY HX 2005 x2 - GALLBLADDER/EF 2005 - LAPAROSCOPY DIAGNOSTIC x8 scar tissue and ovarian cysts removed - LEG SURGERY HX Right 1994 babar inserted and removed in femur - VAGINOSCOPY N/A 09/2016 LGSIL on biopsy SOCIAL HISTORY Social History Tobacco Use - Smoking status: Current Every Day Smoker Types: Cigarettes - Smokeless tobacco: Never Used Substance Use Topics - Alcohol use: No - Drug use: No FAMILY HISTORY Problem Relation Age of Onset - Hypertension Mother - Colon Cancer Father - Hypertension Father - Heart disease Father - Breast Cancer Sister - Heart Maternal Grandfather tachycardias; ?? atrial fibrillation - Stroke Maternal Grandfather stroke/TIA - Breast Cancer Paternal Grandmother - Heart disease Paternal Grandmother - Colon Cancer Paternal Grandfather - Diabetes Paternal Grandfather ALLERGIES: ALLERGIES Allergen Reactions - Doxycycline Vomiting GI UPSET,Nausea and Vomiting,Diarrhea MEDICATIONS: aspirin 81 mg chewable tablet Take 81 mg by mouth as needed. metoprolol succinate ER (TOPROL XL) 25 mg 24 hr tablet Take 25 mg by mouth once daily. pantoprazole DR (PROTONIX) 40 mg tablet Take 40 mg by mouth once daily. SUMAtriptan (IMITREX) 25 mg tablet Take 25 mg by mouth as needed for migraine headache (see administration instructions). REVIEW OF SYSTEMS: Review of Systems Constitutional: Positive for malaise/fatigue (constantly). Negative for chills, fever and weight loss. Respiratory: Negative for cough, hemoptysis, sputum production and shortness of breath. Cardiovascular: Positive for chest pain and palpitations. Negative for orthopnea, leg swelling and PND. Gastrointestinal: Negative for abdominal pain, nausea and vomiting. Skin: Negative for rash. Neurological: Positive for dizziness. Negative for loss of consciousness. PHYSICAL EXAMINATION: BP 119/78 Pulse 61 Resp 18 Ht 5' 7 (1.70m) Wt 153 lb (69.4kg) SpO2 99[room air]% LMP 11/27/2016 BMI 23.96 kg/(m2). Physical Exam Vitals reviewed. Constitutional: General: She is not in acute distress. Appearance: Normal appearance. HENT: Head: Normocephalic and atraumatic. Cardiovascular: Rate and Rhythm: Normal rate and regular rhythm. Heart sounds: Normal heart sounds, S1 normal and S2 normal. No murmur heard. No friction rub. Pulmonary: Effort: Pulmonary effort is normal. No respiratory distress. Breath sounds: Normal breath sounds. No wheezing, rhonchi or rales. Musculoskeletal: Cervical back: Neck supple. Right lower leg: No edema. Left lower leg: No edema. Sk (more content not included)... [facility] 01-28-2022 Nurse Note Patient complains of palpitations but denies any chest pain or symptoms. documented in this encounter [facility] 01-28-2022 History of Present illness Narrative PRIMARY CARE PHYSICIAN: Philip Waddell ([facility]) [address] [place] [address] REFERRING PHYSICIAN: Martínez Shepard MD ([facility]) [address] [place] [address] [address] Patient Care Team: Philip Waddell MD as PCP - General (Internal Medicine) Martínez Shepard as Specialty Cook Helper Dessert (Cardiology) CHIEF COMPLAINT: Evaluation for arrhythmia HISTORY OF PRESENT ILLNESS: Ms. Mata is a 46 year old female who presents today for evaluation of arrhythmia, consultation from her general nursery nurse Dr. Shepard in [place]. She is referred for evaluation of PVCs and nonsustained VT documented by cardiac monitoring. Ms. Mata states that she has been experiencing for the past couple of months intermittent palpitations, and also chest discomfort. She feels that her heart skips a beat and also sometimes she feels rapid irregular heartbeats. These episodes sometimes takes the breath away. She states the symptoms occur frequently, and have been increasing in frequency, more recently occurring every day or two. The episodes of symptoms might last for a couple of minutes. She also has constant fatigue, all the time. She also experiences episodes where she feels the entire left side of her body getting hot and numb --- she can feel like the left side of her body is on fire. 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 She has been evaluated by general nursery nurse Dr. Shepard, underwent testing including echocardiogram and also a cardiac stress test. The stress test was unremarkable, the echocardiogram remarkable only for possible small PFO or ASD. I have confirmed and edited as necessary, the PFSH and ROS obtained by others. PAST MEDICAL HISTORY Diagnosis Date Nonsustained ventricular tachycardia (HCC) Palpitations Pap smear abnormality of cervix with LGSIL PAST SURGICAL HISTORY Procedure Laterality Date ANKLE SURGERY HX Right 1994, 2012 BRAIN SURGERY HX 2005 TBI; had hematoma evacuated COLONOSCOPY SCREENING 12/2021 CONIZATION OF CERVIX, LEEP 1991 EGD W/O BRSH SPEC VARICIES INJ 12/2021 EYE SURGERY HX 2005 x2 GALLBLADDER/EF 2006 LAPAROSCOPY DIAGNOSTIC x8 scar tissue and ovarian cysts removed LEG SURGERY HX Right 1994 babar inserted and removed in femur VAGINOSCOPY N/A 09/2016 LGSIL on biopsy SOCIAL HISTORY Social History Tobacco Use Smoking status: Current Every Day Smoker Types: Cigarettes Smokeless tobacco: Never Used Substance Use Topics Alcohol use: No Drug use: No FAMILY HISTORY Problem Relation Age of Onset Hypertension Mother Colon Cancer Father Hypertension Father Heart disease Father Breast Cancer Sister Heart Maternal Grandfather tachycardias; ?? atrial fibrillation Stroke Maternal Grandfather stroke/TIA Breast Cancer Paternal Grandmother Heart disease Paternal Grandmother Colon Cancer Paternal Grandfather Diabetes Paternal Grandfather ALLERGIES: ALLERGIES Allergen Reactions Doxycycline Vomiting GI UPSET,Nausea and Vomiting,Diarrhea MEDICATIONS: aspirin 81 mg chewable tablet Take 81 mg by mouth as needed. metoprolol succinate ER (TOPROL XL) 25 mg 24 hr tablet Take 25 mg by mouth once daily. pantoprazole DR (PROTONIX) 40 mg tablet Take 40 mg by mouth once daily. SUMAtriptan (IMITREX) 25 mg tablet Take 25 mg by mouth as needed for migraine headache (see administration instructions). REVIEW OF SYSTEMS: Review of Systems Constitutional: Positive for malaise/fatigue (constantly). Negative for chills, fever and weight loss. Respiratory: Negative for cough, hemoptysis, sputum production and shortness of breath. Cardiovascular: Positive for chest pain and palpitations. Negative for orthopnea, leg swelling and PND. Gastrointestinal: Negative for abdominal pain, nausea and vomiting. Skin: Negative for rash. Neurological: Positive for dizziness. Negative for loss of consciousness. PHYSICAL EXAMINATION: BP 119/78 Pulse 61 Resp 18 Ht 5' 7 (1.70m) Wt 153 lb (69.4kg) SpO2 99[room air]% LMP 11/27/2016 BMI 23.96 kg/(m^2). Physical Exam Vitals reviewed. Constitutional: General: She is not in acute distress. Appearance: Normal appearance. HENT: Head: Normocephalic and atraumatic. Cardiovascular: Rate and Rhythm: Normal rate and regular rhythm. Heart sounds: Normal heart sounds, S1 normal and S2 normal. No murmur heard. No friction rub. Pulmonary: Effort: Pulmonary effort is normal. No respiratory distress. Breath sounds: Normal breath sounds. No wheezing, rhonchi or rales. Musculoskeletal: Cervical back: Neck supple. Right lower leg: No edema. Left lower leg: No edema. Skin: General: Skin is warm and dry. Neurological: General: No focal deficit present. Mental Status: She is alert and oriented to person, place, and time. Psychiatric: Mood and Affect: Mood normal. Behavior: Behavior normal. Thought Content: Thought content normal. CARDIOVASCULAR MEDICINE TESTING: Electrocardiogram: Sinus bradycardia 57 bpm; sinus arrhythmia; normal conduction intervals (FL 158 ms, QRS 96 ms); QTc 410 ms; no WPW or Brugada patterns; no epsilon waves; QTc not excessively shortened or prolonged, no repolarization abnormalities I have personally reviewed the Electrocardiogram. ASSESSMENT/PLAN: 1. Palpitations - ICD9: 785.1, ICD10: R00.2 (primary diagnosis) 2. Nonsustained ventricular tachycardia (HCC) - ICD9: 427.1, ICD10: I47.2 IMPRESSION: Ms. Mata has been experiencing intermittent palpitations, unclear if the recent cardiac monitoring correlated her symptoms very strongly with arrhythmia. The monitoring did show reportedly PVCs and at least one episode of brief nonsustained ventricular tachycardia, 8 beats). That particular cardiac monitoring report is not currently available, was not sent with the records from Dr. Shepard's office. I would like to have the report and particularly in the associated electrocardiogram tracings to review. However, given that she has not been found to have structural heart disease, has normal left ventricular systolic function, I did reassure her that any ventricular arrhythmia including the brief nonsustained VT, would be considered benign and not potentially harmful. Treatment for the ventricular arrhythmia would be for control of excessively bothersome symptoms. I will need to see if the PVCs and nonsustained VT correlated with any particular symptoms. Otherwise no treatment would be indicated. There was question about whether EP study would be indicated, and it would not be given that inducibility of ventricular arrhythmias would not have prognostic value in the absence of structural heart disease. If the ventricular arrhythmia is found to be associated with excessively bothersome symptoms, we could consider suppression or elimination of the arrhythmia. First-line treatment for this condition would be a beta-reece, and she is already on a low dosage. We could consider a higher dosage, as tolerated. Another option would be antiarrhythmic drug therapy. And another option would be catheter ablation. However I would not treat the ventricular arrhythmia at all if she does not clearly have excessively bothersome symptoms that are clearly correlated with the arrhythmia. I can say already that it is extremely unlikely that the arrhythmia is responsible for one of the most bothersome symptoms she reports, that being constant ongoing fatigue and tiredness. I also do not believe that any arrhythmia is responsible for the symptoms she experiences intermittently over the entire left side of her body, with feeling hot and numb. The palpitations she reports, particularly the skipped beats and rapid beats, might correlate with arrhythmia --- will need to review the cardiac monitoring. I had a detailed discussion with Ms. Mata regarding my evaluation and recommendations. After our discussion, Ms. Mata expressed her understanding and I answered all her questions to her apparent satisfaction. PLAN AND RECOMMENDATIONS: Obtain the report (with rhythm tracings) of recent outpatient cardiac monitoring from Dr. Shepard. But in general, we would need very clear correlation of symptom(s) with the PVCs/NSVT to warrant suppressive therapy. Nahun Fontenot MD 01/28/2022 Medical Decision Making: Problems: Moderate: New problem with uncertain prognosis Data: Unique source(s) for external note(s) reviewed: 3+ Unique test result(s) reviewed: 3+ Unique test(s) ordered: 1 Risk: Moderate: Moderate risk from testing/treatment, Drug management and Decision on minor surgery w/ risk factors Medical Decision Making Level: 4 - Moderate documented in this encounter [facility] 10-26-2020 Note HNO ID: [id number] Author: Amos Gonzales Service: ? Author Type: Physician Type: Progress Notes Filed: 10/26/2020 9:23 AM Note Text: Patient is a 44-year-old female who previously seen for painful right knee. Please see detailed report from August and September 2020. Patient obtained an MRI of the right knee demonstrating significant degenerative osteoarthritis of the patellofemoral joint especially on the medial side. Patient also demonstrates multiple intra-articular loose bodies along the medial aspect of the patellofemoral compartment and posterior joint capsule. Patient also demonstrates mild degenerative wear on the medial joint line. Physical exam: Unchanged from previous visits. Plan: Secondary to patient's age we will continue with nonoperative management at this time. Patient will be given a steroid injection to hopefully decrease her inflammatory process. Patient will also be given a prescription for Mobic 15 mg to be taken daily for 6 weeks. Patient also will be referred to physical therapy for patellofemoral pathology. Plan for patient to follow-up on an as-needed basis. Large Joint Arthro/Inj: R knee joint The risks, benefits and alternatives of the procedure were reviewed with the patient/surrogate, who agreed to proceed. Written Consent Obtained: N/A Sign In Communication: Completed Time Out: Time Out completed The Time-Out verifies the correct patient, procedure, side/site, position (if applicable) and completion and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
== END | disposition home or self-care (01) ==
LOC: LABSPEC 15:32
PROVIDERS: PCP Internal Medicine; Referring Provider Internal Medicine; Visit Provider Internal Medicine
DX: R68.89 Other general symptoms and signs (principal)
CPT/HCPCS: 87635

== ENCOUNTER 2023-08-28 07:38 | Day surgery (SDC) | payer OTHER, SELFPAY ==
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
[2023-08-28 08:03] VITALS: BP 103/43; PULSE 68; RESP 16; TEMP 36.2; O2SAT 100; BMI 26.9
--- NOTE | 2023-08-28 08:19 | HP.PCM_ITS ---
History and Physical Date of Admission: 08/28/23 Date of Service: 08/05/23 MR#: [id number] Acct: [id number] Name: PHILIP CURRY Rep #: [id number] : 1975 Provider: Dr. 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 Required: No Is patient in pain?: Yes (abdomen) Allergies doxycycline Adverse Reaction (Verified 08/05/23 14:56) Vomiting/diarrhea Medications ibuprofen 400 mg tablet 400 mg PO Q8H PRN Pain 11/30/21 [History Confirmed 08/05/23] baclofen 10 mg tablet 10 mg PO TID PRN muscle spasm #90 tabs 01/02/23 [Rx Confirmed 08/05/23] sumatriptan succinate 25 mg tablet 100 mg PO PRN MIGRIANES 03/18/23 [History Confirmed 08/05/23] carvedilol 3.125 mg tablet 3.125 mg PO Q12H #120 tabs 07/07/23 [Rx Confirmed 08/05/23] esomeprazole magnesium 40 mg capsule,delayed release 40 mg PO DAILY #90 caps 07/07/23 [Rx Confirmed 08/05/23] estradiol 0.1 mg/24 hr semiweekly transdermal patch (Vivelle-Dot) 1 patch transdermal 2XW #8 ea 07/30/23 [Rx Confirmed 08/05/23] methylprednisolone 4 mg tablets in a dose pack (Medrol (Earnest)) See Rx Instructions PO PER PKG DIR neck pain 6 days #21 tabs 08/01/23 [Rx Confirmed 08/05/23] oxycodone-acetaminophen 5 mg-325 mg tablet 1 tab PO Q6H PRN pain 10 days #40 tabs 08/01/23 [Rx Confirmed 08/05/23] PFSH Medical History Abnormal echocardiogram Anxiety Arthritis Back pain Cardiology follow-up encounter Cervical radiculopathy Chronic back pain Dermatitis Easy bruising Gastric reflux GERD (gastroesophageal reflux disease) History of COVID-19 History of depression History of echocardiogram History of edema History of IBS History of irregular heartbeat History of pain when walking History of steroid therapy History of stress test Hypotension Injury of head and neck Leg cramps Migraine Migraine headache NSVT (nonsustained ventricular tachycardia) Palpitations Pharyngitis PONV (postoperative nausea and vomiting) Premature ventricular contraction Seizures Shortness of breath on exertion Smoker Upper respiratory infection Vertigo Surgical History H/O eye surgery H/O knee surgery History of ankle surgery History of brain surgery History of ear surgery History of laparoscopy History of LAVH Hx laparoscopic cholecystectomy Family History Father Heart disease Colon cancerGrandmother Breast cancerUnknown Heart diseaseGrandfather CVA (cerebral vascular accident)Mother Hypertension Hyperlipemia Social History household members: none Smoking Status: Current every day smoker tobacco type: cigarettes Tobacco: How many years used: 30 alcohol intake: never substance use type: does not use caffeine: Yes Type: carbonated beverages Number of servings: 3 and coffee Number of servings: 1 what type of physical activity do you participate in: walking seatbelt use: always do you feel safe at home: Yes additional social history: - HPI HPI HPI: Patient is a 47-year-old female who presents for evaluation of heartburn and reflux. They are referred for surgical consultation from Dr. Waddell. Patient shares that she predominantly suffers from reflux. She relates that she saw Dr. Malave in 2021 for the symptoms, but acknowledges that her symptoms preceded that date by a significant margin. She notes at that time she was diagnosed with GERD. She was also initiated on pantoprazole 20 mg daily. Subsequently she was doubled for this dose but even with this doubling of the dose she did not notice a significant change. She now shares that she has been transitioned to Nexium?also without significant positive effect. In addition to heartburn, she complains that she can eat but she simply does not have an appetite. She describes fullness of her upper abdomen. She also notes some associated hiccuping and belching. Although she denies an appetite she has experienced a weight gain of approximately 30 pounds in the last 2 years. She confirms this is not due to volume overload or swelling. She adds that since her gallbladder surgery foods such as sauerkraut (or other CABG?continue foods) and those foods that contain marinara sauces are hard for her to ingest. Additional symptoms include: No frequent upper respiratory tract infections. They have attempted dietary modifications; eating less spicy foods and those containing marinara sauces or cabbage. They also share that they have tried to cut back on caffeine but are still taking 1 cup of coffee in the morning as well as 2 cans of pop in the afternoon. Previous work-up has included: EGD in December 2021 which was reviewed and negative for any findings of hiatal hernia, Pitts's esophagus, or H. pylori. Patient's past surgical history includes cholecystectomy, abdominal hysterectomy (ovaries remain intact), and multiple laparoscopies which patient states were for removal of scar tissue in her 20s. She also underwent a 360 fixation of her spine and this required an abdominal incision. In fact, she is pending further evaluation with spine surgery for possible cervical fusion. ROS General General: Yes weight change, appetite and fatigue; No colon cancer, breast cancer or weakness HEENT HEENT: Yes eye surgery and swollen glands; No difficulty swallowing, eye injury or hoarseness Endo Endocrine: No thyroid disease, diabetes mellitus, thyroid cancer, Hair loss, heat intolerance or cold intolerance Skin Skin: No rash or changing moles Breast Breast: No left breast lump, right breast lump, nipple discharge, breast pain, abnormal mammogram, abnormal US or breast enlargement Musc Musculoskeletal: Yes back problems and arthritis; No rheumatoid arthritis, gout or joint pain Cardio Cardiovascular: No murmur, pacemaker, heart disease, atrial fibrillation, high blood pressure, heart attack, heart stent, palpitations, shortness of breat with exertion or chest pain Psych Psychiatric: Yes depression and anxiety; No hearing voices Resp Respiratory: No shortness of breath, No sleep apnea, No cough, No COPD, No asthma, No emphysema and No wheezing Gastro Gastrointestinal: Yes abdominal pain, No nausea or vomiting, No diarrhea, Yes constipation, No blood in stool, No acid reflux, No hemorrhoids, No ulcers, No gallbladder problem and No black,tarry stools Contreras Hematologic: No blood thinners, No blood disorders, No bleeding, No anemia and No blood clots Neuro Neurologic: No system reviewed and no additional complaints, except as documented, No as per HPI, No abnormal gait, No abnormal hearing, No abnormal movements, No abnormal speech, No behavioral changes, No burning sensations, No confusion, No convulsions, No disequilibrium, No dizziness, No localized weakness, No frequent falls, No headache(s), No lack of coordination, No loss of vision, No memory loss, Yes numbness, No other visual disturbances, No radicular pain, No restless legs, No sensory deficit, No syncope, Yes tingling, No tremor(s), No weakness and No other Exam Const General: cooperative Orientation: alert, awake and oriented x3 Resp Effort & Inspection: normal respiratory effort GI Inspection: normal to inspection and non-distended Assessment and Plan Assessment and Plan (1) GERD (gastroesophageal reflux disease): Status: Chronic (2) Heartburn: Status: Chronic Comment: Patient with chronic GERD and heartburn symptoms who presents for refractory symptoms. Prior evaluation in 2021 with EGD did not show hiatal hernia, Pitts's esophagus, or H. pylori positivity. Patient describes progressive increase in her symptoms. She is also describing a fullness of her stomach. I have shared with her this differential would include entities such as nonerosive gastritis (given the correlation with an uptick in symptoms following her cholecystectomy), gastroparesis, hiatal hernia,?. I took time to illustrate to her through hand drawings the normal physiology of the stomach as well with some pathophysiologic changes that can lead to increased reflux symptoms. I thus extended my recommendation to proceed with repeat EGD, but would also plan to add pH probe placement at the time of the exam. Patient is aware that she will have to discontinue her PPI medication in anticipation of this procedure. We will also be in deference to orthospine and their workup for patient's apparently more pressing cervical pain. Plan: ? Plan for EGD with pH probe placement I have examined the patient the following changes are noted: Patient reports that her symptoms have been poorly controlled and that she has near constant discomfort?including epigastric discomfort. She confirms that she has held her Nexium appropriately for today's procedure. She also shares that she was recently at ENT and underwent an NPL exam and was informed that her acid reflux is out of control . Procedure and post procedure expectations were reviewed and all questions were answered from patient. Will now proceed for diagnostic EGD with pH probe placement.
[2023-08-28 08:56] VITALS: BP 102/66; BP 103/43; PULSE 74; RESP 16; TEMP 36.6; O2SAT 96
[2023-08-28 09:00] VITALS: BP 103/43; BP 103/68; PULSE 75; RESP 16; O2SAT 96
--- NOTE | 2023-08-28 09:04 | OP.EGD_ITS ---
Patient Name: Sasha Mata Procedure Date: 08/28/2023 8:08 AM Date of : 1975 Age: 47 Procedure: Upper GI endoscopy Indications: Heartburn, Suspected esophageal reflux Providers: Lester Ornelas MD Referring MD: Lester Ornelas MD Medicines: See the Anesthesia note for documentation of the administered medications Patient Profile: Refer to note in patient chart for documentation of history and physical. Complications: No immediate complications. Estimated blood loss: Minimal. Procedure: Pre-Anesthesia Assessment: - The heart rate, respiratory rate, oxygen saturations, blood pressure, adequacy of pulmonary ventilation, and response to care were monitored throughout the procedure. After obtaining informed consent, the endoscope was passed under direct vision. Throughout the procedure, the patient's blood pressure, pulse, and oxygen saturations were monitored continuously. The Endoscope was introduced through the mouth, and advanced to the second part of duodenum. The upper GI endoscopy was accomplished without difficulty. The patient tolerated the procedure well. Scope In: 8:29:11 AM Scope Out: 8:50:34 AM Total Procedure Duration Time 0 hours 21 minutes 23 seconds Findings: No gross lesions were noted in the duodenal bulb, in the first portion of the duodenum and in the second portion of the duodenum. Biopsies were taken with a cold forceps for histology. Estimated blood loss was minimal. Localized moderate inflammation characterized by erythema and linear erosions was found in the gastric antrum. Biopsies were taken with a cold forceps for histology. Estimated blood loss was minimal. Localized mild mucosal changes characterized by inflammation and altered texture were found in the cardia. Biopsies were taken with a cold forceps for histology. Estimated blood loss was minimal. The Z-line was irregular and was found 42 cm from the incisors. Biopsies were taken with a cold forceps for histology. Estimated blood loss was minimal. No gross lesions were noted in the proximal esophagus and in the mid esophagus. The GANDHI capsule with delivery system was introduced through the mouth and advanced into the esophagus, such that the GANDHI pH capsule was positioned 36 cm from the incisors, which was 6 cm proximal to the GE junction. The GANDHI pH capsule was then deployed and attached to the esophageal mucosa. The delivery system was then withdrawn. Endoscopy was utilized for probe placement and diagnostic evaluation. Impression: - No gross lesions in the duodenal bulb, in the first portion of the duodenum and in the second portion of the duodenum. Biopsied. - Chronic bile gastritis. Biopsied. - Inflamed and texture changed mucosa in the cardia. Biopsied. - Z-line irregular, 42 cm from the incisors. Biopsied. - No gross lesions in the proximal esophagus and in the mid esophagus. - The GANDHI pH capsule was deployed. Recommendation: - Discharge patient to home (via wheelchair). - Resume previous diet today. - Continue present medications. - Await pathology results. - Telephone my office for pathology results in 1 week. Procedure Code(s): --- Professional --- 25588, Esophagogastroduodenoscopy, flexible, transoral; with biopsy, single or multiple Diagnosis Code(s): --- Professional --- K29.50, Unspecified chronic gastritis without bleeding K29.60, Other gastritis without bleeding K29.70, Gastritis, unspecified, without bleeding K31.89, Other diseases of stomach and duodenum K22.89, Other specified disease of esophagus R12, Heartburn CPT copyright 2021 [employer]. All rights reserved. The codes documented in this report are preliminary and upon plant custodian review may be revised to meet current compliance requirements. Lester Ornelas MD 08/28/2023 9:04:21 AM This report has been signed electronically. Number of Addenda: 0 Note Initiated On: 08/28/2023 8:08 AM
--- NOTE | 2023-08-28 09:04 | OP.CCLET_ITS ---
08/28/2023 Philip Waddell MD [address] [place] [address] [place] [address] Re : Upper GI endoscopy procedure for [facility] Dear Dr. Waddell This procedure was performed on August. My impressions and recommendations are as follows: Impressions : - No gross lesions in the duodenal bulb, in the first portion of the duodenum and in the second portion of the duodenum. Biopsied. - Chronic bile gastritis. Biopsied. - Inflamed and texture changed mucosa in the cardia. Biopsied. - Z-line irregular, 42 cm from the incisors. Biopsied. - No gross lesions in the proximal esophagus and in the mid esophagus. - The GANDHI pH capsule was deployed. Recommendations : - Discharge patient to home (via wheelchair). - Resume previous diet today. - Continue present medications. - Await pathology results. - Telephone my office for pathology results in 1 week. My findings are described in the full procedure note, which is enclosed. If I can be of further assistance, please feel free to contact me at Doctor phone number(s): , Work: . Sincerely, Lester Ornelas MD 08/28/2023 9:04:21 AM This report has been signed electronically.
[2023-08-28 09:10] VITALS: BP 103/43; BP 103/63; PULSE 70; RESP 16; O2SAT 96
[2023-08-28 09:15] VITALS: BP 103/43; BP 107/60; PULSE 63; RESP 16; TEMP 36.9; O2SAT 96
[2023-08-28 09:24] VITALS: BP 103/43
--- NOTE | 2023-08-28 09:45 | EGD_PTH ---
PATHOLOGY RESULTS PATIENT: PHILIP CURRY LOC: EN U#:[id number] AGE/SX: 47/F ROOM: RE08/28/[address]: Dr. Lester Ornelas MD : 1975 BED: DIS: 08/28/2023 SPEC #: [id number] RECD: 08/28/23 11:42 STATUS: DANNY BRENDAPoppy #: [id number] JEANNETTE: 08/28/23 09:[address]: Lester Ornelas DEPT: SURGICAL PATHOLOGY RECD BY: Mirtha Dan ENTERED: 08/28/23 11:43 SP TYPE: EGD BIOPSY OT DR: Dr. Philip Waddell MD Tissues: Duodenum, NOS Gastric mucous membrane Gastric mucous membrane Esophagus, NOS Procedures: Special Stain Group II Surgery Specimen Level IV Alcian Blue/PAS (control) HEADER OPERATION: EGD with biopsy, PH probe PRE-OP DIAGNOSIS: GERD, heartburn TISSUE SUBMITTED: A - Duodenal bulb biopsy, B - Antrum biopsy for H. pylori and path, C - Gastric cardia biopsy, D - Gastroesophageal junction biopsy MICROSCOPIC DIAGNOSIS A. Duodenal bulb, biopsy: A fragment of duodenal mucosa, no pathologic diagnosis. B. Antrum, biopsy: Mild gastritis. See microscopic description and comment. C. Gastric cardia, biopsy: Mild gastritis. See microscopic description. D. Gastroesophageal junction, biopsy: A fragment of gastroesophageal mucosa with moderate chronic inflammation. Intestinal metaplasia (goblet cell metaplasia) not identified. See comment. SJ:kacie 08/29/2023 COMMENT B. The results of immunohistochemistry for Helicobacter pylori will be reported separately ([id number]). D. Alcian blue/PAS stain with matched control is used in the evaluation of the specimen. MICROSCOPIC DESCRIPTION Slides are reviewed. B & C. The specimen shows fragments of gastric mucosa with chronic inflammatory cell infiltrates in the lamina propria consisting of lymphocytes and plasma cells, consistent with mild chronic gastritis. GROSS DESCRIPTION A - Received in fixative is one container labeled with the patient's name and designated duodenal bulb. The specimen consists of one irregular fragment of light conway soft tissue that measures 0.2 x 0.2 x 0.1 cm. The specimen is totally submitted in one cassette. B - Received in fixative is one container labeled with the patient's name and designated gastric antrum. The specimen consists of two irregular fragments of light conway soft tissue that in aggregate measure 0.7 x 0.5 x 0.1 cm. The specimen is totally submitted in one cassette. C - Received in fixative is one container labeled with the patient's name and designated gastric cardia. The specimen consists of multiple irregular fragments of light conway soft tissue that in aggregate measure 1.5 x 0.5 x 0.1 cm. The specimen is totally submitted in one cassette. D - Received in fixative is one container labeled with the patient's name and designated GE junction. The specimen consists of one irregular fragment of light conway soft tissue that measures 0.6 x 0.3 x 0.1 cm. The specimen is totally submitted in one cassette. / AM:kacie 08/28/2023 TC:3 CPT: 43065 x4, 42784
--- NOTE | 2023-08-28 09:45 | IMM_PTH ---
PATHOLOGY RESULTS PATIENT: PHILIP CURRY LOC: EN U#:[id number] AGE/SX: 47/F ROOM: RE08/28/[address]: Dr. Lester Ornelas MD : 1975 BED: DIS: 08/28/2023 SPEC #: [id number] RECD: 08/28/23 14:09 STATUS: DANNY REPoppy #: [id number] JEANNETTE: 08/28/23 09:[address]: Lester Ornelas DEPT: IMMUNOHISTOCHEMISTRY RECD BY: Zuly Ludwig ENTERED: 08/28/23 14:10 SP TYPE: IMMUNO OTHR DR: Dr. Philip Waddell MD Tissues: Stomach, NOS Procedures: H Pylori (initial) PHYSICIAN & INSTITUTION [place] [address] SPECIMEN INFORMATION: Tissue Source: B - Antrum Clinical Info: GERD, heartburn Specimen Number: [id number] CPT code: 68747 METHODOLOGY: Deparaffinized sections of prefer/formalin-fixed tissue or PAP/DQ stained slides are incubated with monoclonal/polyclonal antibodies/oligonucleotide probes. Localization is made via biotin free immunoperoxidase method. Appropriate controls are performed and reacted as expected. Results on target cell population are indicated in the following table: RESULTS: ANTIBODY / CLONE RESULT Block B H Pylori (polyclonal) negative These tests were developed and their performance characteristics determined by [facility]. They may not have been cleared or approved by the U.S. Food and Drug Administration. The FDA has determined that such clearance or approval is not necessary. The above immunohistochemical/dualISH markers are ordered and reviewed by the Pathologist. INTERPRETATION: B. Antrum, biopsy: Negative for Helicobacter pylori organisms. HENRRY:kacie 08/29/2023
== END 2023-08-28 10:20 | disposition home or self-care (01) ==
LOC: EN 07:38 → AC 07:39
PROVIDERS: PCP Internal Medicine; Referring Provider Surgery; Visit Provider Surgery
PROC: (CPT 43235; principal; 2023-08-28 09:40)
DX: K29.50 Unspecified chronic gastritis without bleeding (principal); K21.9 Gastro-esophageal reflux disease without esophagitis; K31.89 Other diseases of stomach and duodenum; K22.89 Other specified disease of esophagus; G89.29 Other chronic pain; F17.210 Nicotine dependence, cigarettes, uncomplicated; M99.01 Segmental and somatic dysfunction of cervical region; M99.02 Segmental and somatic dysfunction of thoracic region; M99.03 Segmental and somatic dysfunction of lumbar region; M99.05 Segmental and somatic dysfunction of pelvic region; Z86.16 Personal history of COVID-19; Z79.899 Other long term (current) drug therapy; Z90.49 Acquired absence of other specified parts of digestive tract
CPT/HCPCS: 43239; 88305; 88313; 88342; J7120; J2405

== ENCOUNTER → 2023-10-14 | Outpatient (CLI) | payer OTHER, SELFPAY | END | disposition home or self-care (01) | LOC: LABSPEC 12:09 | PROVIDERS: PCP Internal Medicine; Visit Provider Nurse Practitioner | DX: Z11.59 Encounter for screening for other viral diseases (principal) | CPT/HCPCS: 87631 ==

== ENCOUNTER 2023-12-08 12:06 | Observation (INO) | payer OTHER, SELFPAY ==
--- NOTE | 2023-11-24 07:37 | EKG12_ITS ---
Test Reason : PRE OP Blood Pressure : / mmHG Vent. Rate : 062 BPM Atrial Rate : 062 BPM P-R Int : 154 ms QRS Dur : 088 ms QT Int : 400 ms P-R-T Axes : 045 067 057 degrees QTc Int : 406 ms Normal sinus rhythm with sinus arrhythmia Normal ECG Confirmed by LUZ ELENA THAO, KATHE ([id number]), editor publications TONY CAMPBELL ([id number]) on 11/24/2023 11:31:53 AM Referred By: Elan Honeycutt Confirmed By:KATHE LAGUNA MD
[2023-11-24 08:18] LABS: Absolute Lymphocyte Count 2.03 X10^3/uL (0.83-4.51); Absolute Neutrophil Count 3.4 X10^3/uL (2.0-7.7); Basophil# 0.08 X10^3/uL; Basophil% 1.3 % (0-1); Eosinophil# 0.19 X10^3/uL; Eosinophils% 3.1 % (0-5); Hematocrit 43.4 % (37-47); Hemoglobin 13.6 g/dL (12.0-15.0); Lymphocyte # 2.03 X10^3/ul (0.83-4.51); Lymphocyte % 32.8 % (19-41); Mean Corp Hgb Conc 31.3 g/dL (32-36); Mean Corpuscular Hgb 29.1 pg (27.0-32.0); Mean Corpuscular Volume 92.9 fL (81-99); Mean Platelet Vol. 11.7 fl (6.2-12.0); Monocyte# 0.49 X10^3/uL; Monocyte% 7.9 % (0-10); NRBC Flagged by Analyzer 0 % (0-5); Neutrophil # 3.38 X10^3/uL (2.7-7.7); Neutrophil % 54.6 % (47-70); Platelet Count 246 K/mm3 (150-450); RBC Distribution Width CV 12.6 % (11.6-14.6); RBC Distribution Width SD 42.9 fl (35.1-43.9); Red Blood Count 4.67 M/mm3 (4.2-5.4); White Blood Count 6.2 K/mm3 (4.4-11.0)
[2023-11-24 08:31] LABS: Anion Gap 3 (5-15); BUN 10 mg/dL (7-18); BUN/Creat Ratio 11.2 RATIO (10-20); Calcium,Total 8.9 mg/dL (8.5-10.1); Chloride 111 mmol/L (98-107); Creatinine, Serum 0.89 mg/dL (0.55-1.02); EST Glomerular Filtration Rate 71 mL/min (>60); Est Glom Filt Rate - Afr Amer 86 mL/min (>60); Glucose 97 mg/dL (74-106); Potassium 3.9 mmol/L (3.5-5.1); Sodium Level 139 mmol/L (136-145)
[2023-11-24 08:54] LABS: AST(SGOT) 10 U/L (15-37); Alanine Aminotransfer ALT/SGPT 10 U/L (13-56); Albumin, Serum 3.4 g/dL (3.2-5.0); Alkaline Phosphatase 78 U/L (45-117); Bilirubin, Direct 0.07 mg/dL (0.00-0.30); Globulin 3.4 g/dL (2.2-4.2); Magnesium 2.2 mg/dL (1.6-2.6); Protein, Total 6.8 g/dL (6.4-8.2)
[2023-11-24 09:15] LABS: International Normalized Ratio 1.1; Prothrombin Time (Protime)PT. 14.1 SECONDS (11.7-14.9)
[2023-11-24 09:25] LABS: HIV - WCH Non-Reactive (Nonreactive); Hepatitis B Surface Antibody Reactive; Hepatitis C Antibody Non-Reactive (Nonreactive)
[2023-11-25 10:09] LABS: Hepatitis A AB, Total Negative (Negative)
--- NOTE | 2023-12-05 10:04 | PCM.HP.BLA ---
History and Physical [id number] Acct: [id number] Name: SASHA CURRY Rep #: [id number] : 1975 Provider: Dr. Elan Honeycutt DO Age/Sex: 47/F Location: [facility] Status: Signed Intake Vital Signs 07/30/2413:21 07/31/2409:14 Height 5 ft 8 in 5 ft 8 in Intake Visit Reasons: CERVICAL SPINE Accompanied by: Self Is patient in pain?: Yes Allergies doxycycline Adverse Reaction (Verified 08/01/23 13:02) Vomiting/diarrhea Medications ibuprofen 400 mg tablet 400 mg PO Q8H PRN Pain 11/30/21 [History Confirmed 08/01/23] baclofen 10 mg tablet 10 mg PO TID PRN muscle spasm #90 tabs 01/02/23 [Rx Confirmed 08/01/23] sumatriptan succinate 25 mg tablet 100 mg PO PRN MIGRIANES 03/18/23 [History Confirmed 08/01/23] carvedilol 3.125 mg tablet 3.125 mg PO Q12H #120 tabs 07/07/23 [Rx Confirmed 08/01/23] esomeprazole magnesium 40 mg capsule,delayed release 40 mg PO DAILY #90 caps 07/07/23 [Rx Confirmed 08/01/23] estradiol 0.1 mg/24 hr semiweekly transdermal patch (Vivelle-Dot) 1 patch transdermal 2XW #8 ea 07/30/23 [Rx Confirmed 08/01/23] PFSH Medical History Abnormal echocardiogram Anxiety Arthritis Back pain Cardiology follow-up encounter Cervical radiculopathy Chronic back pain Dermatitis Easy bruising Gastric reflux GERD (gastroesophageal reflux disease) History of COVID-19 History of depression History of echocardiogram History of edema History of IBS History of irregular heartbeat History of pain when walking History of steroid therapy History of stress test Hypotension Injury of head and neck Leg cramps Migraine Migraine headache NSVT (nonsustained ventricular tachycardia) Palpitations PONV (postoperative nausea and vomiting) Premature ventricular contraction Seizures Shortness of breath on exertion Smoker Vertigo Surgical History H/O eye surgery H/O knee surgery History of ankle surgery History of brain surgery History of ear surgery History of laparoscopy History of LAVH Hx laparoscopic cholecystectomy Family History Father Heart disease Colon cancerGrandmother Breast cancerUnknown Heart diseaseGrandfather CVA (cerebral vascular accident)Mother Hypertension Hyperlipemia Social History household members: none Smoking Status: Current every day smoker tobacco type: cigarettes Tobacco: How many years used: 30 alcohol intake: never substance use type: does not use caffeine: Yes Type: carbonated beverages Number of servings: 3 and coffee Number of servings: 1 what type of physical activity do you participate in: walking seatbelt use: always do you feel safe at home: Yes additional social history: - HPI CERVICAL SPINE Details: This documentation accurately reflects the service provided and the decisions made by me, Dr. Elan Honeycutt, DO 08/01/23 1257. Part of today?s visit was documented by Lyn LOPEZ, acting as scribe. SASHA CURRY is a 47 year old F here today for f/u on neck pain. She states that she has a knot at the base of her neck along with numbness in that area. She does notes she has also had numbness and tingling in her right arm as well. 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 she has also had a target headache. She states that sometimes the neck gets hot. She states that it is affecting her whole right side of her neck. She states that it has gotten worse with the last 4 days. She isn't really having headaches. Denies any recent injury/activity to acuse her pain. Sasha returns with the old problem that she has had in the past that of a cervical issue. He started for 5 days ago it was insidious in onset. And is gradually gotten worse since then. It does go down the right arm is what is described as a C6 dermatome. Back a year and a half ago or so she had very similar symptoms and the MRI demonstrated that she has hard disc disease with foraminal stenosis on the right at C5-6. At the time Dr. Adorno did some injections that helped her tremendously. This pain is probably as bad as it was before. She has trouble turning her neck because of the pain. On examination she has pain with extension and flexion of her cervical spine. She does have positive Spurling's on the right but only for localized pain not down the arm. Has good motor strength of all the major muscle groups of both upper extremities at this time. She has 2+ biceps and brachial radialis reflexes and 1+ triceps reflexes bilaterally. She has no muscle atrophy. She has no long tract signs. Plain x-rays taken in the office today demonstrate that she has a little bit more of a decreased disc space at C5-6 than she did 22 months ago as compared. So 1 can surmise that the foraminal stenosis that she had even then may be getting just a little bit worse at this time. I told her that the first thing to do is to try to calm the pain down. I will give her a Medrol Dosepak that she can start tomorrow. In addition I will give her a few more pain pills as she only has 3 left from her surgery of her low back that was done 2 months ago. Thus she has been judicious as far as her pain pills go home. I would like to visit with her again in 1 week hopefully the Medrol Dosepak will make her feel better. If it does not we will proceed with an MRI scan prior to cervical epidurals. Like doing cervical epidurals blindly without an MRI scan.
[2023-12-08] VITALS (15 sets, daily range): BP systolic 100–127; BP diastolic 50–77; PULSE 45–81; RESP 12–18; TEMP 36.1–37.1; O2SAT 97–100; BMI 26.3
--- NOTE | 2023-12-08 | DISC_PTH ---
PATIENT: PHILIP CURRY LOC: MS3 U#:[id number] AGE/SX: 47/F ROOM: [facility] RE12/08/[address]: Dr. Elan Honeycutt DO : 1975 BED: 1 DIS: 12/09/2023 SPEC #: [id number] RECD: 12/08/23 13:49 STATUS: DANNY REPoppy #: [id number] JEANNETTE: 12/08/23 00:[address]: Elan Honeycutt DEPT: SURGICAL PATHOLOGY RECD BY: Danish Farnsworth ENTERED: 12/08/23 13:49 SP TYPE: DISC OTHR DR: Dr. Philip Waddell MD Tissues: Intervertebral disc, NOS Procedures: Surgery Specimen Level III HEADER OPERATION: ERAS anterior cervical fusion C5-6 and C6-7 PRE-OP DIAGNOSIS: Herniated nucleus pulposus, cervical, degenerative disc disease, cervical TISSUE SUBMITTED: Disc C5-C6, C6-C7 MICROSCOPIC DIAGNOSIS Anterior vertebral disc, C5-C7, discectomy: Fragments of intervertebral disc with degenerative change. / 12/09/2023 MICROSCOPIC DESCRIPTION Slides are reviewed. GROSS DESCRIPTION Received in fixative is one container labeled with the patient's name and designated Disc C5-6, C6-7. The specimen consists of multiple irregular fragments of conway-white soft tissue measuring in aggregate 5.0 x 5.0 x 0.7cm. Registered Dental Assistant Rda portions are submitted in one cassette. / 12/08/23 TC:5 CPT:08335
[2023-12-08] MEDS: Lactated Ringers 1,000 ML 15 ML IV (06:10)
[2023-12-08] MEDS: Magnesium 1 GM over 15 mins IV (06:11)
[2023-12-08] MEDS: Acetaminophen 500 MG Tablet 1000 MG PO ×3 (06:11→20:54)
[2023-12-08] MEDS: dexAMETHasone 10 MG/ML Vial 8 MG IV (06:11)
--- NOTE | 2023-12-08 06:30 | RAD_ITS ---
STUDY: X-RAY - CERVICAL SPINE REASON FOR EXAM: Female, 47 years old. Intraoperative study for C-spine fusion TECHNIQUE: Limited lateral view(s) of the cervical spine were obtained. COMPARISON: 11/27/2023 FINDINGS: 1 Limited lateral view of the cervical spine performed. Patient is intubated. There is a marker in place anterior to the C6 vertebral body. There is anatomic alignment of the cervical spine with loss of the natural lordotic curvature which is likely positional. There is evidence of previous interbody fusion between C3 and C4. There is disc space narrowing between C3-4 and C5-6. RAD/Cerv Spine 2 or 3 Views IMPRESSION: No intraoperative complications noted during anterior cervical fusion. A marker is noted anterior to the C6 vertebral body. Multilevel degenerative changes in the cervical spine. Electronically Signed: Aaron Diaz MD at 8:39 EDT ,
[2023-12-08 06:31] LABS: Bedside Glucose 71 mg/dL (74-106)
[2023-12-08] MEDS: Cefazolin 2 GM in 0.9% Normal Saline (100mL Bag) 100 ML IV (07:39)
--- NOTE | 2023-12-08 08:39 | RAD_ITS ---
STUDY: X-RAY - LUMBAR SPINE REASON FOR EXAM: Female, 47 years old. ANTERIOR CERVICAL FUSION C5-6, C6-7 TECHNIQUE: 1 Limited intraoperative view(s) of the lumbar spine were obtained. COMPARISON: None FINDINGS: 1 Limited intraoperative view performed as the patient is undergoing anterior cervical fusion. A localizer wire has been placed anteriorly into the disc space between C7 and T1. Patient is intubated. Degenerative changes noted throughout the cervical spine. RAD/Spine 1 View Any Level IMPRESSION: No intraoperative complications during anterior cervical fusion. A needle has been placed into the anterior disc space between C7 and T1 Electronically Signed: Aaron Diaz MD at 9:30 EDT ,
--- NOTE | 2023-12-08 09:21 | RAD_ITS ---
STUDY: X-RAY - LUMBAR SPINE REASON FOR EXAM: Female, 47 years old. ANTERIOR CERVICAL INFUSION IMAGE 3 TECHNIQUE: 1 Limited lateral intraoperative view(s) of the lumbar spine were obtained. COMPARISON: None FINDINGS: Limited lateral intraoperative view performed as the patient is undergoing anterior cervical fusion. Localization needle is placed anteriorly into the disc space between C7 and T1. No complications. RAD/Spine 1 View Any Level IMPRESSION: No intraoperative complications noted during anterior cervical fusion. A localizer needle/wire is placed into the anterior disc space between C6 and C7 on this film. Electronically Signed: Aaron Diaz MD at 9:32 EDT ,
[2023-12-08] MEDS: Heparin 10,000 UNITS/10 ML Vial 10000 UNITS (09:24)
[2023-12-08] MEDS: THROMBIN (RECOMBINANT) 20,000 UNIT VIAL 20000 UNIT TOPICAL (09:25)
--- NOTE | 2023-12-08 09:26 | RAD_ITS ---
STUDY: X-RAY - CERVICAL SPINE REASON FOR EXAM: Female, 47 years old. anterior cervical fusion C5-6, and C6-7 TECHNIQUE: 1 Limited lateral view(s) of the cervical spine were obtained. COMPARISON: None FINDINGS: Limited lateral view of the cervical spine during surgery shows the patient to be intubated, a localizer needle has been placed anteriorly between the disc spaces of C6 and C7. No intraoperative complications noted. RAD/Spine 1 View Any Level IMPRESSION: No intraoperative complications noted during anterior cervical fusion Electronically Signed: Aaron Diaz MD at 9:41 EDT ,
--- NOTE | 2023-12-08 11:00 | RAD_ITS ---
STUDY: X-RAY - CERVICAL SPINE REASON FOR EXAM: Female, 47 years old. Intraoperative image of anterior spinal fusion. TECHNIQUE: A single lateral view(s) of the cervical spine were obtained. COMPARISON: Cervical spine x-rays dated November 27, 2023 FINDINGS: Single lateral view of cervical spine shows spondylosis at C3-4 and anterior fusion from C4 to C6 with intervertebral disc prostheses. RAD/Spine 1 View Any Level IMPRESSION: Intraoperative digital documentation view. Electronically Signed: Javon Orantes MD at 12:29 EDT ,
--- NOTE | 2023-12-08 12:26 | PCM.OPRPT ---
Report of Operation Description of Surgical Findings:: Preoperative diagnosis: Degenerative disc disease C6-7 and degenerative disc disease C5-6 with bilateral foraminal stenosis Postoperative diagnosis: Same Procedures: #1 anterior cervical fusion C6-7 CPT code 03435 #2 application of spine plate C5-C7 CPT code 10514/59 #3 anterior cervical fusion C5-6 CPT code 86979/51 #4 insertion of cage C6-7 CPT code 77653 #5 insertion of cage C5-6 CPT code 22760/51 #6 bone marrow aspirate right crest CPT code 74277 #7 allograft bone C5-6, C6-7 CPT code 17964 Surgeon: Dr. Honeycutt Manager Of Business: Madan WHITLEY Anesthesia: General endotracheal by [facility] EBL: Less than 30 cc Drains: 1/4 inch Jasper Complications: None Procedure: Patient was taken to the OR where she was placed on the spine position on the operating table she was then placed under general endotracheal anesthesia. A De León catheter was inserted. Neuromonitoring placed her leads on the patient. A preoperative cervical x-ray was taken with a needle marker in place on the outside of the skin to see where the incision would be made for the surgery. This was then marked with a small laceration using the end of a needle in the midline.The right iliac crest area and the cervical spine were then prepped and draped in standard fashion. First I made a puncture incision directly over the ASIS on the right side I entered with a Jamshidi needle tamped it into place and obtained 50 cc of bone marrow aspirate. This was handed off to the inorganic chemical technician in the room who used her specialized centrifuge to separate the patient's own stem cells from her other cells and concentrated the stem cells about 10 times. This was given back to us. I then made an incision at the predetermined point curved in line with longer's lines to the edge of the right sternocleidomastoid muscle. Subcutaneous tissues were incised length of the skin incision. I then undermined the subcutaneous tissues off of the platysma in a cephalad and caudad direction. Self-retaining retractor was then put in place. I then split the platysma longitudinally in line with its fibers. I then developed the opening the pretracheal fascia followed by the opening of the deep cervical fascia. We initially took an intraoperative x-ray with a marker in place that demonstrated we were at C7-T1 1. We simply moved the needle of 1 level and took another x-ray to confirm that this was indeed C6-7. This was then marked before removal of the needle by cauterizing a hole in the anterior annulus. I then cauterized the longus coli muscles on either side and elevated and gently off of the disc base. Self-retaining shadow line retractors were then put in place. I removed the anterior annulus with a 15 blade.Pituitaries were used to remove it and to remove nucleus from within the disc base all the way back to the back. I then used the sharp curettes of different sizes to remove the cartilage off both endplates. I then used a rishi bur to bur the sides to flatten just a little to make room for a cage. I also used the bur to remove the anterior osteophytes. Once this was done I took my measurements for the cage we decided to use a small 8 mm high cage. I then rasped the space for endplate bleeding bone. Irrigation was carried out regularly during the whole whole course of the case.We then filled the cage with allograft bone and soaked it in the patient's concentrated stem cells this was then tamped into place and countersunk a millimeter or 2. We then moved our attention to the next level. Note that her cervical spine was inset deeply into her skull and the C5-6 was actually hard to get to because the shadow line retractors were right up against her chin. So we had to fight the exposure for the second level. I cauterized the coli muscles on either side elevated them and put the shadow line retractors in place. Again the anterior annulus was removed with sharp 15 blade I then removed more nucleus from within the disc base with pituitary rongeurs. This was followed by curettes to remove the remaining disc all the way back and remaining cartilage off both endplates. I then used a rishi bur on both sides doing the right side first I burred down the uncinate process to a thin shell this was done repeatedly followed by instillation of cold saline. Once this was done I used curettes to remove the uncinate process posteriorly and give me good access to the exit of the nerve root this was checked with a nerve probe was found to be quite open. Same exact thing was done on the left side. In the same exact technique. Once this was done I then used a 7 mm cage at this time as we measured for it it was again filled with allograft bone soaked in patient's own concentrated stem cells. It was then tamped into place and countersunk a millimeter or 2. A 42 mm plate was then used, once put in place I used a pin to hold it in place and punched the first of 6 holes. This was followed by insertion of the 14 mm screws 2 into see 7 2 into C6 and finally 2 into C5. The Spyder plate has self locking mechanism once the screws go through the the whole. Amniotic membrane was then placed directly over to prevent adhesions to the trachea or to the esophagus. We then took a postoperative x-ray that demonstrated excellent position of all the screws and the plate and the 2 cages. 1/4 inch Jasper was left in place I then reapproximated the platysma in running fashion with 5-0 Vicryl for closure of subcutaneous tissues and interrupted 5-0 Vicryl sutures. This brought the skin together and there was no need for outside stitches. Sterile dressings were applied and a safety pin was placed through the drain to prevent suction into the wound. The patient was then recovered in the OR she was moved to her hospital bed and taken to recovery in satisfactory condition. This is the end of operative summary on Sasha Mata. This is Dr. Honeycutt dictating.
[2023-12-08] MEDS: dexAMETHasone 4 MG/ML Vial IV ×2 (13:52→18:55)
--- NOTE | 2023-12-08 15:43 | PCM.CONS.GEN ---
Assessment & Plan Assessment/Plan (1) Degenerative disc disease, cervical: PLAN: Plan #Cervical stenosis s/p anterior cervical fusion of C5-6 and C6-7 today is POD 0 management as per primary service spine surgery PT/OT on board. Fall precautions incentive spirometry #Migraines; on sumatriptan #Nonsustained ventricular tachycardia: on carvedilol #GERD: on PPI DVT prophylaxis: as per primary service spine surgery Thank you for the courtesy of the consult. The hospitalist service will continue to follow with you. HPI Consult Data Date of Consult: 12/08/23 HPI Narrative Reason for Consultation: medical management HPI Narrative: PHILIP CURRY, is a 47 F with past medical history as outlined who was admitted to the service of spine surgery for anterior cervical fusion of C5-C6 and C6-C7 on account of degenerative disc disease with bilateral foraminal stenosis. Hospitalist service was consulted for medical management. Patient was seen and examined after surgery. She did complain of some pain, especially with swallowing. She had no other active complaints. Review of systems otherwise negative. She has remained hemodynamically stable. [facility] Medical History Abnormal echocardiogram Anxiety Arthritis Back pain Cardiology follow-up encounter Cervical radiculopathy Chronic back pain Dermatitis Easy bruising Gastric reflux GERD (gastroesophageal reflux disease) History of COVID-19 History of depression History of echocardiogram History of edema History of IBS History of irregular heartbeat History of steroid therapy History of stress test Hypotension Injury of head and neck Insomnia Leg cramps Lymph node enlargement Migraine Migraine headache NSVT (nonsustained ventricular tachycardia) Palpitations Pharyngitis PONV (postoperative nausea and vomiting) Premature ventricular contraction Seizures Shortness of breath on exertion Smoker Upper respiratory infection Vertigo Home Medications ?Medication ?Instructions ?Recorded ?Last Taken ?Type ibuprofen 400 mg tablet 400 mg PO Q8H PRN Pain 11/30/21 12/07/23 History baclofen 10 mg tablet 10 mg PO TID PRN muscle spasm #90 01/02/23 12/07/23 Rx tabs sumatriptan succinate 25 mg tablet 100 mg PO PRN MIGRIANES 03/18/23 12/07/23 History carvedilol 3.125 mg tablet 3.125 mg PO Q12H #120 tabs 07/07/23 12/07/23 Rx esomeprazole magnesium 40 mg 40 mg PO DAILY #90 caps 07/07/23 12/07/23 Rx capsule,delayed release estradiol 0.1 mg/24 hr semiweekly 1 patch transdermal 2XW #8 ea 07/30/23 12/08/23 Rx transdermal patch (Vivelle-Dot) trazodone 50 mg tablet 50 mg PO QHS PRN insomnia #60 tabs 08/18/23 12/07/23 Rx oxycodone-acetaminophen 5 mg-325 1 tab PO PRN PRN pain 08/25/23 12/07/23 History mg tablet Allergy/AdvReac Type Severity Reaction Status Date / Time doxycycline AdvReac Vomiting/di Verified 12/08/23 06:01 arrhea Family History Father Heart disease Colon cancer Grandmother Breast cancer Unknown Heart disease Grandfather CVA (cerebral vascular accident) Mother Hypertension Hyperlipemia Surgical History H/O eye surgery H/O knee surgery History of ankle surgery History of brain surgery History of ear surgery History of laparoscopy History of LAVH History of lumbar fusion Hx laparoscopic cholecystectomy Hx of esophagogastroduodenoscopy Social History household members: none Smoking Status: Current every day smoker tobacco type: cigarettes Tobacco: How many years used: 30 alcohol intake: never substance use type: does not use caffeine: Yes Type: carbonated beverages Number of servings: 3 and coffee Number of servings: 1 what type of physical activity do you participate in: walking seatbelt use: always do you feel safe at home: Yes additional social history: - ROS Constitutional Constitutional: Denies anorexia, change in weight, chills, fatigue, fever(s), malaise or weakness Eyes Eyes: Denies change in vision ENT HEENT: Denies dysphagia or headache(s) Cardiovascular Cardiovascular: Denies chest pain, dyspnea on exertion, edema, lightheadedness, orthopnea, palpitations or paroxysmal nocturnal dyspnea Respiratory/Chest Respiratory/Chest: Denies cough, dyspnea or shortness of breath at rest Gastrointestinal Gastrointestinal: Denies abdominal pain, coffee ground emesis, constipation, diarrhea, nausea or vomiting Musculoskeletal Musculoskeletal: Denies joint pain, joint stiffness or joint swelling Neurologic Neurologic: Denies confusion, dizziness, focal weakness, headache(s), numbness, paresthesias, seizure-like activity, seizures, syncope or tingling Psychiatric Psychiatric: Denies anxiety or depression Endocrine Endocrinology: Denies change in body appearance Physical Exam Const alert, oriented x3 and no apparent distress General Appearance: cooperative HEENT normocephalic, head/scalp atraumatic, hearing grossly normal bilaterally, moist oral mucous membranes and oropharynx normal Mouth: oral and palatal mucosa normal Eyes PERRL, EOMs intact bilaterally and conjunctivae normal Neck no lymphadenopathy, supple and no JVD Neck Narrative: intact dressing over anterior neck, at site of surgery. Has a soft neck collar in situ. Resp normal respiratory effort, no retractions, no use of accessory muscles and clear to auscultation bilaterally Cardio regular rate, regular rhythm, S1 normal heart sound, S2 normal heart sound and no murmurs GI normal to inspection, nondistended, normoactive bowel sounds, soft to palpation, non-tender, non-distended and hepatosplenomegaly Extremity normal to inspection, full ROM and no clubbing, cyanosis or edema Neuro oriented x3, CN's II-XII intact bilaterally, moves all extremities and no focal motor deficits Sensorium / Orientation: awake and alert Motor Exam: strength 5/5 throughout Psych affect normal Lab / Micro Data 11/24/23 07:50 11/24/23 07:50 Labs: Laboratory Results - last 24 hr 12/08/23 06:06: POC Glucose 71 L Imaging Radiology Impression Cervical Spine X-Ray 12/08/23 06:30 IMPRESSION: No intraoperative complications noted during anterior cervical fusion. A marker is noted anterior to the C6 vertebral body. Multilevel degenerative changes in the cervical spine. Electronically Signed: Aaron Diaz MD at 8:39 EDT , Spine X-Ray 12/08/23 08:39 IMPRESSION: No intraoperative complications during anterior cervical fusion. A needle has been placed into the anterior disc space between C7 and T1 Electronically Signed: Aaron Diaz MD at 9:30 EDT , Spine X-Ray 12/08/23 09:21 IMPRESSION: No intraoperative complications noted during anterior cervical fusion. A localizer needle/wire is placed into the anterior disc space between C6 and C7 on this film. Electronically Signed: Aaron Diaz MD at 9:32 EDT , Spine X-Ray 12/08/23 09:26 IMPRESSION: No intraoperative complications noted during anterior cervical fusion Electronically Signed: Aaron Diaz MD at 9:41 EDT , Spine X-Ray 12/08/23 11:00 IMPRESSION: Intraoperative digital documentation view. Electronically Signed: Javon Orantes MD at 12:29 EDT , Charges/Coding Visit Charges Inpatient E&M: 21759 Subs Hosp L2
[2023-12-08] MEDS: Cefazolin 1 GM/50 ML BAG IV (17:33)
[2023-12-08] MEDS: Lactated Ringers 1,000 ML 100 ML IV (17:42)
[2023-12-08] MEDS: 0.9% Saline Lock 10 ML Syringe IV ×2 (18:56→20:13)
[2023-12-08] MEDS: oxyCODONE 5 MG Tablet PO (20:09)
[2023-12-09] MEDS: Lactated Ringers 1,000 ML 100 ML IV (00:13)
[2023-12-09] MEDS: 0.9% Saline Lock 10 ML Syringe IV ×2 (00:16→02:37)
[2023-12-09] MEDS: oxyCODONE 5 MG Tablet PO ×2 (00:18→05:44)
[2023-12-09] MEDS: Cefazolin 1 GM/50 ML BAG IV (00:21)
[2023-12-09 00:25] VITALS: BP 110/64; PULSE 51; RESP 16; TEMP 35.8; O2SAT 99
[2023-12-09 02:33] VITALS: BP 102/59; PULSE 47; RESP 16; TEMP 36.6; O2SAT 96
[2023-12-09] MEDS: dexAMETHasone 4 MG/ML Vial 2 MG IV ×2 (02:37→06:07)
[2023-12-09 03:56] VITALS: PULSE 52; O2SAT 96
[2023-12-09 05:35] VITALS: BP 113/61; PULSE 43; RESP 16; TEMP 35.7; O2SAT 98
[2023-12-09] MEDS: Acetaminophen 500 MG Tablet 1000 MG PO ×2 (05:43→13:44)
[2023-12-09 08:49] VITALS: BP 121/64; PULSE 44; RESP 18; TEMP 36.4; O2SAT 100
[2023-12-09 08:57] VITALS: PULSE 50
[2023-12-09] MEDS: Pantoprazole Sodium 40 MG Tablet PO (09:02)
--- NOTE | 2023-12-09 09:24 | PN.HOSP_ITS ---
Subjective Subjective No issues overnight Objective Data Objective Data Vital Signs: Vital Signs Temp Pulse Resp BP Pulse Ox O2 Del Method O2 Flow Rate 97.5 F L 50 L 18 121/64 H 100 Room Air 4 12/09/23 08:49 12/09/23 08:57 12/09/23 08:49 12/09/23 08:49 12/09/23 08:49 12/09/23 08:57 12/08/23 13:15 Oxygen Flow Rate (L/min) 4 Oxygen Delivery Method Room Air Weight: 173 lb Body Mass Index (BMI) 26.3 Intake & Output: Intake and Output for Last 24 Hours 12/08/23 12/09/23 12/10/23 03:59 03:59 03:59 Intake Total 2067.42 / 2067.42 535 / 535 Output Total 2700 / 2700 300 / 300 Balance -632.58 / -632.58 235 / 235 Lab / Micro Data 11/24/23 07:50 11/24/23 07:50 Micro: Microbiology 11/24/23 07:50 Swab (Method) Nasal Screen MRSA/MSSA - Final Radiography Diagnostic Testing: Radiology Impression Spine X-Ray 12/08/23 08:39 IMPRESSION: No intraoperative complications during anterior cervical fusion. A needle has been placed into the anterior disc space between C7 and T1 Electronically Signed: Aaron Diaz MD at 9:30 EDT , Spine X-Ray 12/08/23 09:21 IMPRESSION: No intraoperative complications noted during anterior cervical fusion. A localizer needle/wire is placed into the anterior disc space between C6 and C7 on this film. Electronically Signed: Aaron Diaz MD at 9:32 EDT , Spine X-Ray 12/08/23 09:26 IMPRESSION: No intraoperative complications noted during anterior cervical fusion Electronically Signed: Aaron Diaz MD at 9:41 EDT , Spine X-Ray 12/08/23 11:00 IMPRESSION: Intraoperative digital documentation view. Electronically Signed: Javon Orantes MD at 12:29 EDT , Physical Exam Narrative General: Alert, Oriented x3, Cooperative, No apparent distress HEENT: Atraumatic, PERRLA, EOMI, Normocephalic Oral: Moist Mucosa Neck: Supple, No JVD Lungs: Clear to auscultation, Normal air movement, No rhonchi, No wheeze, No rales Cardiovascular: Regular rate, Regular Rhythm, Normal S1, Normal S2, No murmurs Abdomen: Soft, Non Tender, Non-Distended, No Hepato-splenomegaly Extremities: No edema, Capillary Refill Less than 3 Seconds Skin: Dressing CDI Musculoskeletal: No Tenderness to Palpation of Joints or Extremities Neurological: No focal neurological deficits, Motor Exam 5/5 strength throughout, Sensory exam intact to light touch and pain Psych/Mental Status: Normal Affect, Appropriate Assessment & Plan Assessment/Plan (1) Degenerative disc disease, cervical: PLAN: Plan #Cervical stenosis s/p anterior cervical fusion of C5-6 and C6-7 * today is POD 1 * management as per primary service spine surgery * PT/OT on board. * Fall precautions * incentive spirometry * Discharge planning per primary #Migraines; on sumatriptan #Nonsustained ventricular tachycardia: on carvedilol #GERD: on PPI Charges/Coding Visit Charges Inpatient E&M: 01529 Subs Hosp L2
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
--- NOTE | 2023-12-09 13:50 | DCINST_ITS ---
Discharge Instructions Activity May shower in (days): 4 May resume sexual activity in: 4-6 weeks Lifting Restrictions: 15# Dressing / Incision Remove Dressing in: 3 days Follow Up Care Test Results: Test results from this visit will be discussed in further detail at your follow- up appointment, if applicable. Discharge Plan Admission Admit Date/Time: 12/08/23 12:06 Attending Provider: Elan Honeycutt Primary Care Provider: Philip Waddell Consulting Providers: Esteban Khan Discharge Orders/Prescriptions Prescriptions: No Action ibuprofen 400 mg tablet 400 mg PO Q8H PRN (Reason: Pain) baclofen 10 mg tablet 10 mg PO TID PRN (Reason: muscle spasm) Qty: 90 1RF esomeprazole magnesium 40 mg capsule,delayed release(DR/EC) 40 mg PO DAILY Qty: 90 1RF carvedilol 3.125 mg tablet 3.125 mg PO Q12H Qty: 120 1RF Rx Instructions: must administer with a meal/food trazodone 50 mg tablet 50 mg PO QHS PRN (Reason: insomnia) Qty: 60 1RF estradiol [Vivelle-Dot] 0.1 mg/24 hr patch semiweekly 1 patch transdermal 2XW Qty: 8 6RF Rx Instructions: apply 1 patch for 3 days alternating with 1 patch for 4 days each week sumatriptan succinate 25 mg tablet 100 mg PO PRN oxycodone-acetaminophen 5-325 mg tablet 1 tab PO PRN PRN (Reason: pain) Patient Comments: TAKE 1 TABLET BY MOUTHCEVERY 6 HOURS NEEDEDBFOR PAIN FOR 10 DAYS oxycodone-acetaminophen 5-325 mg tablet 1 tab PO Q6H PRN (Reason: pain) 10 Days Qty: 40 0RF Referrals / Follow Up: Philip Waddell MD [Primary Care Provider] - Disposition Disposition (needs filled in before D/C Order can be placed): Home, Self Care
== END 2023-12-09 14:35 | disposition home or self-care (01) ==
LOC: MS3 12:59 → SDC 13:00 → MS3 13:00
PROVIDERS: Anesthesiology; Admitting Provider Orthopaedic Surgery; PCP Internal Medicine; Referring Provider Orthopaedic Surgery; Visit Provider Orthopaedic Surgery
PROC: (CPT 22551; principal; 2023-12-08 07:00)
DX: M48.02 Spinal stenosis, cervical region (principal); I47.20 Ventricular tachycardia, unspecified; F17.210 Nicotine dependence, cigarettes, uncomplicated; G89.29 Other chronic pain; G47.00 Insomnia, unspecified; M50.30 Other cervical disc degeneration, unspecified cervical region; Z79.899 Other long term (current) drug therapy; K21.9 Gastro-esophageal reflux disease without esophagitis; G43.909 Migraine, unspecified, not intractable, without status migrainosus; R06.02 Shortness of breath
CPT/HCPCS: 22551; 22845; 22552; 22853 ×2; 20939; 20930; 00670; 36415; 72020; 72040; 80048; 80076; 82962; 83735; 85025; 85610; 85730; 86703; 86706; 86708; 86803; 87077; 87081; 88304; 93005; 96361; 96365; 96366; 96375; 96376; 97162; 97530; 99221; C1713; J7120; A4216; G0378; J2405; J3475

== ENCOUNTER 2023-12-26 13:54 | Emergency (ER) | payer OTHER, SELFPAY ==
[2023-12-26 13:55] VITALS: BP 160/88; PULSE 81; RESP 16; TEMP 36.4; O2SAT 98; BMI 26.2
--- NOTE | 2023-12-26 14:26 | MRI_ITS ---
STUDY: MRI CERVICAL SPINE REASON FOR EXAM: Female, 48 years old. R posterior neck pain -- post op ACDF TECHNIQUE: MRI examination of the cervical spine obtained with standard protocol including multiplanar multiecho Noncontrast imaging. Contrast: No contrast administered COMPARISON: No pertinent prior examinations for comparison. FINDINGS: Vertebral bodies and alignment: 1. Vertebral body height and alignment are maintained. There is straightening of cervical lordosis, and postoperative changes with anterior plate and screw fixation and interbody fusion from C5 to C7. 2. No evidence hardware failure. No fracture or subluxation. 3. Incidental note of developmental fusion of C3 on C4.. 4. Prevertebral soft tissue planes have normal appearance. Normal appearance the odontoid process and alignment of the craniocervical junction. 5. Normal appearance the posterior muscular fascial planes of the cervical spine, and the posterior ligamentous support structure the cervical spine is intact. Intervertebral disc levels: C2-3: Mild disc desiccation without disc herniation or canal stenosis, there is mild RIGHT foraminal narrowing with uncovertebral joint hypertrophic changes without nerve root impingement. C3-4: 12 effusion without evidence of disc herniation canal or foraminal stenosis. C4-5: Disc desiccation without evidence of disc herniation or canal stenosis. There is mild LEFT foraminal narrowing due to facet and uncovertebral joint changes however no nerve root impingement. C5-6: Postop changes changes, interbody fusion and anterior fixation. No evidence of canal stenosis. Bilateral foraminal narrowing noted due to uncovertebral joint hypertrophic changes. C6-7: Postoperative changes of interbody fusion and anterior fixation. No disc herniation or canal stenosis. Bilateral foraminal narrowing due to uncovertebral joint hypertrophic changes. C7-T1: Normal endplates. Normal disc height, signal and morphology. Normal central canal and intervertebral neural foramina. Spinal CORD: There is normal appearance the spinal cord. No intramedullary signal abnormality, masses or syrinx. Normal appearance of the cervical medullary junction. No evidence cord compression. MRI/Spine Cervical (Routine) IMPRESSION: 1. Postop changes of interbody fusion anterior fixation from C5 to C7. No evidence of hardware failure fracture or subluxation. 2. No abnormal fluid collections. No hematoma seroma or abscess noted. 3. Foraminal narrowing is present at C5-6 and C6-7 contributed by uncovertebral joint hypertrophic changes. 4. Developmental fusion of C3 on C4. 5. Normal appearance of visualized spinal cord. No cord compression or cord edema. No evidence of epidural fluid collections hematoma or abscess. Electronically Signed: Harry Dudley MD at 19:48 EDT ,
[2023-12-26] MEDS: Morphine 4 MG/ML Syringe IM (14:31)
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
[2023-12-26] MEDS: LORazepam 1 MG Tablet PO (17:24)
[2023-12-26] MEDS: Gabapentin 300 MG Capsule PO (21:10)
== END 2023-12-26 21:24 | disposition home or self-care (01) ==
PROVIDERS: Emergency Provider Emergency Medicine; PCP Internal Medicine; Visit Provider Emergency Medicine
DX: M54.12 Radiculopathy, cervical region (principal); F17.210 Nicotine dependence, cigarettes, uncomplicated; R29.898 Other symptoms and signs involving the musculoskeletal system; Z98.1 Arthrodesis status; K21.9 Gastro-esophageal reflux disease without esophagitis; Z79.899 Other long term (current) drug therapy; Z90.49 Acquired absence of other specified parts of digestive tract
CPT/HCPCS: 72141; 96372; 99282

== ENCOUNTER → 2024-01-05 | Outpatient (CLI) | payer OTHER, SELFPAY ==
--- NOTE | 2024-01-05 08:00 | MRI_ITS ---
STUDY: MRI RIGHT SHOULDER REASON FOR EXAM: Female, 48 years old. Pain - rule out rotator cuff tear. TECHNIQUE: Standardized fat and water weighted pulse sequences were obtained in all 3 orthogonal planes. COMPARISON: Right shoulder radiographs dated 12/19/2023. FINDINGS: Normal supraspinatus tendon. Normal infraspinatus tendon. There is mild subscapularis tendinosis. Normal teres minor tendon. Normal supraspinatus muscle. Normal infraspinatus muscle. Normal subscapularis muscle. Normal teres minor muscle. There is abnormal linear intrasubstance signal within the superior labrum, oriented in the superolateral direction, extending posterior to the biceps-labral anchor (coronal T2 series 5 images 13-15), compatible with a SLAP tear. Normal glenohumeral articulation. Normal humeral head and visualized proximal humerus. Normal intracapsular long biceps tendon. Normal rotator interval. There is mild hypertrophic acromioclavicular arthrosis. There is a Type II morphology (curved), with a neutral orientation. There is no subacromial-subdeltoid bursal fluid. Normal visualized coracohumeral and coracoacromial ligaments. Normal quadrilateral space. Normal axillary space. Normal deltoid muscle. Normal trapezius muscle. MRI/Upper Ext Joint Only(Routine) IMPRESSION: SLAP tear. Mild subscapularis tendinosis. Mild hypertrophic acromioclavicular arthrosis. No full-thickness rotator cuff tear. Electronically Signed: Dragan Araya MD at 12:17 EDT ,
== END | disposition home or self-care (01) ==
LOC: MRI 07:31
PROVIDERS: PCP Internal Medicine; Referring Provider Orthopaedic Surgery; Visit Provider Orthopaedic Surgery
DX: M25.511 Pain in right shoulder (principal)
CPT/HCPCS: 73221

== ENCOUNTER 2024-03-08 10:18 | Emergency (ER) | payer OTHER, SELFPAY ==
[2024-03-08 10:18] VITALS: BP 127/55; PULSE 63; RESP 14; TEMP 36.6; O2SAT 100; BMI 25.9
--- NOTE | 2024-03-08 10:32 | EKG12_ITS ---
Test Reason : CP Blood Pressure : / mmHG Vent. Rate : 067 BPM Atrial Rate : 067 BPM P-R Int : 152 ms QRS Dur : 094 ms QT Int : 400 ms P-R-T Axes : 083 071 060 degrees QTc Int : 422 ms Normal sinus rhythm with sinus arrhythmia Normal ECG Confirmed by ANGELIKA THAO, MJ ([id number]), movie editor TONY CAMPBELL ([id number]) on 03/12/2024 9:42:30 AM Referred By: Confirmed By:CARLY CARNEY MD
--- NOTE | 2024-03-08 10:33 | ED.VIS.CHEST ---
HPI History of Present Illness Chief Complaint: Chest Pain Informant: patient and parent Narrative Narrative: Presents here with mother evaluation and substernal chest heaviness with heaviness into her back which at 2:30 AM.'s been persistent. Close dyspnea. No nausea no diaphoresis. No radicular symptoms in the arm or neck. 1 pack/day smoker. No family history of mother side [place]. She does not know her father side. Denies hypertension, diabetes, hyperlipidemia. Denies history of PE or DVT. Did have a drive to [place] a month ago there is no leg swelling or cramping. Reports similar symptoms in the past most recent 1 to 2 years ago with a negative workup in the ED. She has seen cardiology Dr. Shepard in the past. She states she had a 30-day event monitor, significant and referred to electrophysiology upper neck region. She states they found a hole in her heart. No history of heart cardiac catheterizations in the past. Stress test years ago. Prior Similar Symptoms: Yes CVD Risk Factors: Positive for Smoking; Negative for Hypertension, Diabetes, Hypercholesterolemia or Family History 1' </=55 PE Risk Factors: Positive for Recent Travel/Surgery; Negative for Recent Immobilization or Prior DVT or PE PFSH [facility] Medical History Superior labrum [id number] (SLAP) tear of right shoulder Right shoulder pain Lymph node enlargement Insomnia Upper respiratory infection Pharyngitis Anxiety History of steroid therapy Easy bruising Back pain Injury of head and neck Vertigo Gastric reflux Shortness of breath on exertion Leg cramps Hypotension History of irregular heartbeat GERD (gastroesophageal reflux disease) Chronic back pain Migraine Dermatitis Premature ventricular contraction NSVT (nonsustained ventricular tachycardia) History of echocardiogram History of stress test Cardiology follow-up encounter History of COVID-19 PONV (postoperative nausea and vomiting) Migraine headache Seizures History of IBS History of edema Abnormal echocardiogram Palpitations Cervical radiculopathy Arthritis Smoker History of depression Home Medications ?Medication ?Instructions ?Recorded ?Last Taken ?Type ibuprofen 400 mg tablet 400 mg PO Q8H PRN Pain 11/30/21 12/07/23 History baclofen 10 mg tablet 10 mg PO TID PRN muscle spasm #90 01/02/23 12/07/23 Rx tabs sumatriptan succinate 25 mg tablet 100 mg PO PRN MIGRIANES 03/18/23 12/07/23 History carvedilol 3.125 mg tablet 3.125 mg PO Q12H #120 tabs 07/07/23 12/07/23 Rx esomeprazole magnesium 40 mg 40 mg PO DAILY #90 caps 07/07/23 12/07/23 Rx capsule,delayed release estradiol 0.1 mg/24 hr semiweekly 1 patch transdermal 2XW #8 ea 07/30/23 12/08/23 Rx transdermal patch (Vivelle-Dot) trazodone 50 mg tablet 50 mg PO QHS PRN insomnia #60 tabs 08/18/23 12/07/23 Rx oxycodone-acetaminophen 5 mg-325 1 tab PO PRN PRN pain 08/25/23 12/07/23 History mg tablet gabapentin 300 mg capsule 300 mg PO QHS #30 caps 12/26/23 Unknown Rx pantoprazole 40 mg tablet,delayed 40 mg PO DAILY #30 tabs 03/08/24 Unknown Rx release Allergy/AdvReac Type Severity Reaction Status Date / Time doxycycline AdvReac Vomiting/di Verified 03/08/24 10:19 arrhea Family History Father Heart disease Colon cancer Grandmother Breast cancer Unknown Heart disease Grandfather CVA (cerebral vascular accident) Mother Hypertension Hyperlipemia Surgical History Hx of esophagogastroduodenoscopy History of lumbar fusion History of brain surgery History of laparoscopy H/O eye surgery History of ear surgery H/O knee surgery History of ankle surgery Hx laparoscopic cholecystectomy History of [facility] Social History household members: none Smoking Status: Current every day smoker tobacco type: cigarettes Tobacco: How many years used: 30 alcohol intake: never substance use type: does not use caffeine: Yes Type: carbonated beverages Number of servings: 3 and coffee Number of servings: 1 what type of physical activity do you participate in: walking seatbelt use: always do you feel safe at home: Yes additional social history: - ROS ROS ED Constitutional Constitutional ED: Denies chills, fever(s) or sweats Eyes Eyes: Denies change in vision ENT ENT ED: Denies dysphagia or sore throat Cardiovascular Cardiovascular: Reports chest pain; Denies leg edema, palpitations or racing heartbeat Respiratory/Chest Respiratory/Chest: Reports dyspnea; Denies cough or dyspnea on exertion Gastrointestinal Gastrointestinal: Denies abdominal pain, diarrhea, nausea or vomiting Genitourinary Genitourinary ED: Denies dysuria, hematuria or urinary frequency Musculoskeletal Musculoskeletal: Denies back pain, extremity pain or neck pain Integumentary Denies rash or wounds Neurologic Neurologic: Denies headache(s), paresthesias or weakness EXAM Physical Exam Const Vital Signs: 03/08/24 10:18 03/08/24 10:49 03/08/24 13:00 Temperature 98 F Temperature Source Temporal Pulse Rate 63 66 Respiratory Rate 14 18 Blood Pressure 127/55 H 120/75 Blood Pressure Mean 79 90 Pulse Ox 100 100 Oxygen Delivery Method Room Air Room Air Room Air 03/08/24 14:15 Temperature Temperature Source Pulse Rate 55 L Respiratory Rate 18 Blood Pressure 111/67 Blood Pressure Mean 81 Pulse Ox 100 Oxygen Delivery Method Room Air Positive well nourished and well developed Constitutional Narrative: Nontoxic. Slight uncomfortable. General Appearance ED: well developed HEENT Reports moist mucous membranes normocephalic and atraumatic Eyes EOMs intact bilaterally and conjunctivae normal General Eye ED: Yes normal appearance of both eyes Neck no lymphadenopathy and supple General: Negative for tenderness Chest Wall Chest: Negative for tenderness Resp normal respiratory effort and normal air movement Effort and Inspection: symmetric chest movement; Negative for respiratory distress Cardio regular rate, regular rhythm and no murmurs Peripheral Pulses: pulses 2+ throughout GI normal to inspection, nondistended, normoactive bowel sounds and non-tender Palpation: Negative for guarding or rebound tenderness present Back/Spine no CVA tenderness and no thoracic nor lumbar tenderness Extremity normal to inspection General Extremety ED: Negative for edema or tenderness General Extremity: Negative for edema Neuro oriented x3 and no sensory deficits noted Sensorium / Orientation: awake and alert Skin no rashes or lesions noted and no wounds Heart Score History: Slightly/Non-Suspicious ECG: Normal Age: >45 - <65 years Risk Factors: 1 or 2 Risk Factors Troponin: </= Normal Limit Score: 2 MDM MDM MDM Narrative Medical decision making narrative: Interventions / MDM: Differential diagnosis: Atypical chest pain, gastritis Diagnosis considered but do not suspect: ACS however cardiac workup negative. PE, pneumothorax studies negative. My EKG interpretation: Sinus rate of 67, no ST changes. QTc 422. EKG #2 at 2039: Sinus bradycardia at 44, no signs of heart block. Imaging independently reviewed and interpreted by myself: CT angiogram chest: No PE, no dissection. No pneumothorax External documents reviewed: N/A Test considered but not ordered:N/A ED course: EKG with no acute findings. Chest heaviness with pressure rating to the back. No sharp pains in the back. Recent travel however. Cardiac workup including D-dimer obtained. She treated with aspirin, nitroglycerin will be ordered sublingual. Systolic blood pressure 128 in the room. 1120: Troponin less than 3. Hemoglobin 13.4. Creatinine 0.88. She had a D-dimer slightly elevated at 0.55. Reevaluation status post aspirin. Still has pressure. CTA chest ordered for further evaluation. Pulse ox 100% room air. 1225: Patient returned from CT. I reviewed this no gross findings noted. She still had discomfort. Will order morphine. Nitroglycerin was held as troponins were negative. Will repeat EKG. Repeat EKG sinus bradycardia she had some discomfort in her chest during that times likely a vasovagal episode. Heart rate improved back and 60s on reevaluation. 1500: Troponin negative x 2. CT angiogram negative for PE dissection or pneumothorax. Reevaluation she is feeling better still felt slight symptoms. She was given GI cocktail with improving symptoms. She denies any black or bloody stools. Discussed potential atypical reflux symptoms as her cardiac workup and PE studies and dissection are negative. Will place her on a PPI. She will follow-up with her doctors. Return precautions. All questions were answered. Re-evaluation: stable Disposition discussed with patient/family/significant other: Patient Case discussed with consulting clinician: N/A This note was generated with [employer] dictation software. It may contain incorrect words, spelling, and punctuation that were not noted in checking the note before signing. Lab Data Attestation: I reviewed the patient's lab results. Labs: Laboratory Results - last 24 hr 03/08/24 03/08/24 10:35 13:07 WBC 6.1 RBC 4.54 Hgb 13.4 Hct 42.6 MCV 93.8 MCH 29.5 MCHC 31.5 L RDW Std Deviation 42.7 RDW Coeff of Zara 12.4 Plt Count 244 MPV 11.9 Immature Gran % (Auto) 0.200 Neut % (Auto) 56.5 Lymph % (Auto) 30.3 [place] % (Auto) 8.8 Eos % (Auto) 3.1 Baso % (Auto) 1.1 H Absolute Neuts (auto) 3.5 Absolute Lymphs (auto) 1.85 Nucleated RBC % 0 D-Dimer Quant (PE/DVT) 0.55 H* Sodium 140 Potassium 3.8 Chloride 110 H Carbon Dioxide 27.0 Anion Gap 3 L BUN 7 Creatinine 0.88 Estim Creat Clear Calc 84.70 Est GFR (MDRD) Af Amer 87 Est GFR (MDRD) Non-Af 72 BUN/Creatinine Ratio 7.9 L Glucose 67 L Calcium 9.0 Troponin I High Sens < 3 L < 3 L Radiography Diagnostic Testing: Clinical Impression(s) from Imaging Studies Chest CTA 03/08/24 11:08 IMPRESSION: 1. No CTA evidence of thromboemboli, thoracic aortic aneurysm or dissection. 2. No acute cardiopulmonary pathology. 3. 1.9 cm nonenhancing simple cyst in segment 8 of the liver parenchyma is unchanged. ACR White Paper guidelines (Yaritza, et al. JACR 2017; 14(11):9920-3562.) suggest no follow-up is necessary. 4. Incidental 2 mm nonobstructing stone in the left kidney is unchanged. Electronically Signed: Vadim Acosta MD at 12:30 EDT Reading Location ID and State: [address] [place] [address] , Service support , Discharge Plan Triage Chief Complaint: Chest Pain ED Provider: Neal Shaw Dx/Rx/DC Orders Clinical Impression: Atypical chest pain, Gastritis Instructions: ED Chest Pain, Noncardiac, ED Gastritis (Adult) Prescriptions: New pantoprazole 40 mg tablet,delayed release (DR/EC) 40 mg PO DAILY Qty: 30 0RF No Action ibuprofen 400 mg tablet 400 mg PO Q8H PRN (Reason: Pain) baclofen 10 mg tablet 10 mg PO TID PRN (Reason: muscle spasm) Qty: 90 1RF esomeprazole magnesium 40 mg capsule,delayed release(DR/EC) 40 mg PO DAILY Qty: 90 1RF carvedilol 3.125 mg tablet 3.125 mg PO Q12H Qty: 120 1RF Rx Instructions: must administer with a meal/food trazodone 50 mg tablet 50 mg PO QHS PRN (Reason: insomnia) Qty: 60 1RF estradiol [Vivelle-Dot] 0.1 mg/24 hr patch semiweekly 1 patch transdermal 2XW Qty: 8 6RF Rx Instructions: apply 1 patch for 3 days alternating with 1 patch for 4 days each week sumatriptan succinate 25 mg tablet 100 mg PO PRN oxycodone-acetaminophen 5-325 mg tablet 1 tab PO PRN PRN (Reason: pain) Patient Comments: TAKE 1 TABLET BY MOUTHCEVERY 6 HOURS NEEDEDBFOR PAIN FOR 10 DAYS gabapentin 300 mg capsule 300 mg PO QHS Qty: 30 0RF Stand Alone Forms: Work / School Excuse Primary Care Provider: Philip Waddell Referrals: Philip Waddell MD [Primary Care Provider] - 3-5 Days Activity Restrictions/Additional Instructions: Cardiac workup with troponin negative x 2. CTA chest negative for PE or dissection. You are feeling better with GI cocktail. Will prescribe pantoprazole, take as prescribed. Follow-up with your doctor further testing. If symptoms worsen, return to ED for reevaluation. Print Language: [place] Disposition Disposition: Home, Self Care
[2024-03-08 10:48] LABS: Absolute Lymphocyte Count 1.85 X10^3/uL (0.83-4.51); Absolute Neutrophil Count 3.5 X10^3/uL (2.0-7.7); Basophil# 0.07 X10^3/uL; Basophil% 1.1 % (0-1); Eosinophil# 0.19 X10^3/uL; Eosinophils% 3.1 % (0-5); Hematocrit 42.6 % (37-47); Hemoglobin 13.4 g/dL (12.0-15.0); Lymphocyte # 1.85 X10^3/ul (0.83-4.51); Lymphocyte % 30.3 % (19-41); Mean Corp Hgb Conc 31.5 g/dL (32-36); Mean Corpuscular Hgb 29.5 pg (27.0-32.0); Mean Corpuscular Volume 93.8 fL (81-99); Mean Platelet Vol. 11.9 fl (6.2-12.0); Monocyte# 0.54 X10^3/uL; Monocyte% 8.8 % (0-10); NRBC Flagged by Analyzer 0 % (0-5); Neutrophil # 3.45 X10^3/uL (2.7-7.7); Neutrophil % 56.5 % (47-70); Platelet Count 244 K/mm3 (150-450); RBC Distribution Width CV 12.4 % (11.6-14.6); RBC Distribution Width SD 42.7 fl (35.1-43.9); Red Blood Count 4.54 M/mm3 (4.2-5.4); White Blood Count 6.1 K/mm3 (4.4-11.0)
[2024-03-08] MEDS: Aspirin 81 MG TAB.CHEW 324 MG PO (10:48)
[2024-03-08] MEDS: 0.9% Normal Saline (1000mL) 1,000 ML 150 ML IV (10:48)
[2024-03-08 11:05] LABS: Anion Gap 3 (5-15); BUN 7 mg/dL (7-18); BUN/Creat Ratio 7.9 RATIO (10-20); Chloride 110 mmol/L (98-107); Creatinine, Serum 0.88 mg/dL (0.55-1.02); EST Glomerular Filtration Rate 72 mL/min (>60); Est Glom Filt Rate - Afr Amer 87 mL/min (>60); Glucose 67 mg/dL (74-106); Potassium 3.8 mmol/L (3.5-5.1); Sodium Level 140 mmol/L (136-145); Troponin-I HS (w/2H Reflex) < 3 pg/mL (3.0-54.0)
[2024-03-08 11:06] LABS: D-Dimer Quantitative (DVT/PE) 0.55 FEU/ug/m (0.27-0.49)
--- NOTE | 2024-03-08 11:08 | CT_ITS ---
EXAM: CT ANGIOGRAPHY CHEST WITHOUT AND WITH INTRAVENOUS CONTRAST CLINICAL INDICATION: Chest pain. Elevated d-dimer. TECHNIQUE: Helically acquired angiography images were obtained of the chest without and with intravenous contrast. This CT exam was performed using one or more of the following dose reduction techniques: automated exposure control, adjustment of the mA and/or kV according to patient size, and/or use of iterative reconstruction technique. MIP reconstructed images were created and reviewed. CONTRAST: IV 100mL Isovue-370 RADIATION DOSE: CTDIvol = 9.05 mGy, DLP = 259.80 mGy-cm COMPARISON: CT abdomen and pelvis without contrast 11/14/2022. No prior CTA chest or CT chest for comparison. FINDINGS: PULMONARY ARTERIES: Unremarkable. Normal in caliber. No evidence of pulmonary embolism. AORTA: Unremarkable. Normal in caliber. No evidence of dissection. GREAT VESSELS OF AORTIC ARCH: Unremarkable. Normal in caliber. No evidence of dissection. LUNGS AND PLEURAL SPACES: Unremarkable. No mass. No consolidation or edema. No pleural effusion or thickening. No pneumothorax. HEART: Unremarkable. Heart size is normal. No pericardial effusion. No significant coronary artery calcifications. MEDIASTINUM: Unremarkable. No mediastinal or hilar adenopathy. Esophagus is unremarkable. No hiatal hernia. THYROID: Unremarkable. No thyroid lesions. BONES/JOINTS: Unremarkable. No suspicious lytic or blastic abnormality. LIVER: 1.9 cm nonenhancing low-attenuation lesion in segment 8 of the liver parenchyma with CT number of 10.7 Hounsfield units is simple cyst. This is unchanged. Kidneys: 2 mm nonobstructing stone in the left kidney is unchanged. No suspicious mass in the left kidney. The visualized portion of the right upper renal parenchyma is normal. CT/CTA Chest W/WO Contrast IMPRESSION: 1. No CTA evidence of thromboemboli, thoracic aortic aneurysm or dissection. 2. No acute cardiopulmonary pathology. 3. 1.9 cm nonenhancing simple cyst in segment 8 of the liver parenchyma is unchanged. ACR White Paper guidelines (Yaritza et al. JACR 2017; 14(11):5133-3986.) suggest no follow-up is necessary. 4. Incidental 2 mm nonobstructing stone in the left kidney is unchanged. Electronically Signed: Vadim Acosta MD at 12:30 EDT ,
--- NOTE | 2024-03-08 12:25 | EKG12_ITS ---
Test Reason : CP Blood Pressure : / mmHG Vent. Rate : 044 BPM Atrial Rate : 044 BPM P-R Int : 150 ms QRS Dur : 088 ms QT Int : 462 ms P-R-T Axes : 102 061 052 degrees QTc Int : 395 ms Marked sinus bradycardia Nonspecific ST abnormality Abnormal ECG Confirmed by ANGELIKA THAO, MJ ([id number]), market editor TONY CAMPBELL ([id number]) on 03/12/2024 9:42:42 AM Referred By: Confirmed By:CARLY CARNEY MD
[2024-03-08 12:43] LABS: Reflex Troponin-HS? (from REC) Y
[2024-03-08 13:00] VITALS: BP 120/75; PULSE 66; RESP 18; O2SAT 100
[2024-03-08] MEDS: Morphine 4 MG/ML Syringe IV (13:02)
[2024-03-08 13:31] LABS: Troponin-I HS < 3 pg/mL (3.0-54.0)
[2024-03-08] MEDS: Lidocaine 2% Viscous15 ML UDC 15 ML PO (14:13)
[2024-03-08] MEDS: Mag /Aluminum/Simeth WCH UDC 30 ML ORAL.SUSP PO (14:13)
[2024-03-08 14:15] VITALS: BP 111/67; PULSE 55; RESP 18; O2SAT 100
[2024-03-08 15:36] VITALS: BP 122/72; PULSE 59; RESP 18; TEMP 36.8; O2SAT 100
== END 2024-03-08 15:40 | disposition home or self-care (01) ==
PROVIDERS: Emergency Provider Emergency Medicine; PCP Internal Medicine; Visit Provider Emergency Medicine
DX: R07.89 Other chest pain (principal); R00.1 Bradycardia, unspecified; K29.70 Gastritis, unspecified, without bleeding; F17.210 Nicotine dependence, cigarettes, uncomplicated; K21.9 Gastro-esophageal reflux disease without esophagitis; Z79.899 Other long term (current) drug therapy
CPT/HCPCS: 71275; 80048; 84484; 85025; 85379; 93005; 96361; 96374; 96376; 99285; J7030; Q9967; A4216

== ENCOUNTER 2024-04-28 17:30 | Outpatient (RCR) | payer OTHER, SELFPAY ==
--- NOTE | 2024-03-31 18:26 | HP.PTEVAL ---
Patient's Visit Information Visit Information Visit Information: PHILIP CURRY is a 48 year old F referred to Physical Therapy by Dr. Jatinder Rbo MD with a diagnosis of L hip pain. Date of Evaluation: 03/31/24 Physical Therapist: TANNER Morrow Visit Plan Frequency: 2x /Week Duration: 2 Months Plan: Pt was in pain with most activities today. She just got her injection yesterday. Sent her home with bridges and LTR to do if she has less pain. 2X/ week for 8 weeks for L hip AROM/PROM, L hip stretches, L hip and core strengthening, possible US to the L greater trochanter and IT band, MH with HEP Pt has a history of back and neck and R ankle fusion Subjective Subjective: Pt started with hip pain a few months ago. She thought it was because of her back fusion but they found that pain in the L hip. She got an injection yesterday and today her pain is more tolerable. Going up and down stairs is painful, squatting, getting up from the floor, sitting for a long period of time. Walking for a long time makes it worse. She has no N&T. She can not lay on that side either. Pain L hip pain: Pain Intensity (Out of 10): 1 Objective Objective: Gait: walks with decrease stance time on the L LE Pt can not heel and toe walk due to R ankle fusion Trunk AROM: Flexion 50%, Ext 25%, SB 25%, Rot 25% Patellar DTR's: 0/3 LE MMT: R hip flex 9,9 and L 4.3 (pain) R knee ext 12.2 and L 3.4 R knee flex 14 and L 4.5 R hip abd 9.9 and L 2.4 (pain) Hip add was not painful LTR increase pain Piriformis stretch in supine increase pain SKC increase pain Tight HS B Balance/Special Test Scores Lower Extremity Functional Score: 32 Goals Goal 1:: I HEP Goal Time Frame: 6-8 Weeks Goal 2:: Be able to go up and down the steps without L hip pain Goal 3:: Increase L hip strength (at the time of the eval: LE MMT: R hip flex 9,9 and L 4.3 (pain) R knee ext 12.2 and L 3.4 R knee flex 14 and L 4.5 R hip abd 9.9 and L 2.4 (pain)) Rehabilitation Potential Rehabilitation Potential: Good Anticipated Interventions Patient/Client Instruction: Educate patient on: Condition and Plan of Care For the Purpose of:: To decrease pain, To increase ROM, To improve nutrient delivery to tissue, To improve muscle performance and motor function, To improve ability to perform ADL's, To increase tolerance to activity/condition/position, To improve performance and independence with ADL's, To improve ability of physical actions for home/community/work/leisure, To improve health of tissue and To increase flexibility/ROM Therapeutic Exercise to Include: Strength training, Postural training, Flexibilty training, Gait and locomotor training, Neuromotor development, Passive ROM, Active ROM and Dynamic Lumbar Stabilization For the Purpose of:: To decrease pain, To increase ROM, To improve nutrient delivery to tissue, To improve muscle performance and motor function, To improve ability to perform ADL's, To increase tolerance to activity/condition/position, To improve performance and independence with ADL's, To decrease level of supervision to perform tasks, To improve ability of physical actions for home/community/work/leisure, To improve gait and locomotor functions, To improve health of tissue, To decrease soft tissue restriction and To increase flexibility/ROM Manual Therapy Techniques to Include: Passive ROM and Soft tissue mobilization For the Purpose of:: To decrease pain, To increase ROM, To improve nutrient delivery to tissue, To improve muscle performance and motor function, To improve ability to perform ADL's, To increase tolerance to activity/condition/position, To improve performance and independence with ADL's, To decrease level of supervision to perform tasks, To improve ability of physical actions for home/community/work/leisure, To improve gait and locomotor functions, To improve health of tissue, To decrease soft tissue restriction and To increase flexibility/ROM Thermo therapy (hot pack): Yes Ultrasound (thermal/non thermal): Yes For the Purpose of:: To decrease pain, To increase ROM, To improve nutrient delivery to tissue, To increase oxygenation perfusion, To improve muscle performance and motor function, To increase tolerance to activity/condition/position, To improve performance and independence with ADL's, To decrease level of supervision to perform tasks, To improve gait and locomotor functions, To improve health of tissue, To decrease soft tissue restriction and To increase flexibility/ROM Text: Thank you for the opportunity to evaluate your patient. For Medicare and Medicare HMO plans, please review the plan of care and approve it. It will need to be FAXED BACK to us at [phone] for Medicare purposes. For Medicare only, by signing this I certify the plan of care. Please let me know if there are questions or concerns regarding this plan of care. Physician Signature: Date:
--- NOTE | 2024-04-28 17:49 | HP.PTDCSUM ---
Discharge Summary D/C summary: It has been my pleasure to treat PHILIP CURRY referred by Dr. Jatinder Rob MD, with the diagnosis of L hip pain for a total of 8 visit(s). Discharge Date: 04/28/24 Please see the following information for a summary of their discharge status. Subjective Subjective: Pt put her on meloxicam, prednisone and order an MRI of her L hip. She is no better. US gives her temp relief. Heat is not doing anything anymore. Dr Adorno gave her 2 injections in Mar and those did not help and he was upset that they did not work. Today he was up and down step like 30 times today. She reports that getting up and down from the floor for her job is horrible. Pain L hip pain: Pain Intensity (Out of 10): 9 Overall Improvement % Improvement: 0 Objective Objective/Function: Gait: Pt still walking with decrease stance time on the L LE R hip flex 10.6 and L 8.4 (pain) R knee ext 14.1 and L 13 R knee flex 10 and L 10 R hip abd 9.9 and L 2.4 (pain))..NT Goals Goal 1:: I HEP Goal Progress: Goal Met Goal 2:: Be able to go up and down the steps without L hip pain Goal Progress: Not Progressing Goal 3:: Increase L hip strength (at the time of the eval: LE MMT: R hip flex 9,9 and L 4.3 (pain) R knee ext 12.2 and L 3.4 R knee flex 14 and L 4.5 R hip abd 9.9 and L 2.4 (pain)) Goal Progress: Goal Met Plan Plan: DC PT to HEP D/C Information Discharge Comments: DC PT. Pt getting an MRI d/c sentence: If there are questions or concerns regarding this patient's physical therapy, please feel free to call me at [phone]. Thank you for the referral of this patient. Sincerely, Ofelia Johnson, MPT Balance/Gait/Functional tests Balance/Special Test Scores Lower Extremity Functional Score: 21 Improvement % Improvement: 0
== END 2024-04-28 19:00 | disposition home or self-care (01) ==
LOC: PT 17:30
PROVIDERS: PCP Internal Medicine; Referring Provider Orthopaedic Surgery Orthopaedic Surgery of the Spine; Visit Provider Orthopaedic Surgery Orthopaedic Surgery of the Spine
DX: M25.551 Pain in right hip (principal)
CPT/HCPCS: 97035; 97110; 97162; 97530

== ENCOUNTER → 2024-06-25 | Outpatient (CLI) | payer OTHER, SELFPAY ==
[2024-06-25 12:21] LABS: ALB/GLOB Ratio 1.1 RATIO (0.9-2.4); AST(SGOT) 11 U/L (15-37); Alanine Aminotransfer ALT/SGPT 8 U/L (13-56); Albumin, Serum 3.6 g/dL (3.2-5.0); Alkaline Phosphatase 89 U/L (45-117); Anion Gap 3 (5-15); BUN 8 mg/dL (7-18); BUN/Creat Ratio 10.9 RATIO (10-20); Calcium,Total 9.3 mg/dL (8.5-10.1); Chloride 110 mmol/L (98-107); Creatinine, Serum 0.73 mg/dL (0.55-1.02); EST Glomerular Filtration Rate 89 mL/min (>60); Est Glom Filt Rate - Afr Amer 108 mL/min (>60); Free T3 2.7 pg/mL (2.18-3.98); Globulin 3.3 g/dL (2.2-4.2); Glucose 90 mg/dL (74-106); Magnesium 2.1 mg/dL (1.6-2.6); Potassium 4.3 mmol/L (3.5-5.1); Protein, Total 6.9 g/dL (6.4-8.2); Sodium Level 139 mmol/L (136-145); T4 Free Direct 0.96 ng/dL (0.76-1.46); Thyroid Stim Hormone (TSH) 0.965 uIU/mL (0.358-3.740)
== END | disposition home or self-care (01) ==
PROVIDERS: PCP Internal Medicine; Referring Provider Physician Assistant Medical; Visit Provider Physician Assistant Medical
DX: R00.2 Palpitations (principal)
CPT/HCPCS: 36415; 80053; 83735; 84439; 84443; 84481

== ENCOUNTER → 2024-07-05 | Outpatient (CLI) | payer OTHER, SELFPAY | END | disposition home or self-care (01) | LOC: PSN 11:56 | PROVIDERS: PCP Internal Medicine; Referring Provider Physician Assistant Medical; Visit Provider Physician Assistant Medical | DX: R00.2 Palpitations (principal) | CPT/HCPCS: 93225; 93226 ==

== ENCOUNTER → 2024-08-04 | Outpatient (CLI) | payer OTHER, SELFPAY | END | disposition home or self-care (01) | PROVIDERS: PCP Internal Medicine; Referring Provider Nurse Practitioner Women's Health; Visit Provider Nurse Practitioner Women's Health | DX: N89.8 Other specified noninflammatory disorders of vagina (principal) ==

== ENCOUNTER → 2024-08-10 | Outpatient (CLI) | payer OTHER, SELFPAY ==
--- NOTE | 2024-08-10 16:38 | BI_ITS ---
MAMMOGRAPHY - BILATERAL SCREENING REASON FOR EXAM: Female, 48 years old. Routine annual screening examination. PERTINENT HISTORY: Sister with breast cancer. Grandmother with breast cancer. TECHNIQUE: Digital bilateral breast miya (3D mammographic acquisition) in the CC and MLO projections. 2-D mediolateral oblique (MLO) and craniocaudad (CC) views of both breasts were obtained. CAD: Full Field Digital Mammography with Computer Added Detection was performed. COMPARISON: Comparison is made with prior study dated November 28, 2022 and October 02, 2021. FINDINGS: Breast Composition: The breasts are heterogeneously dense, which may obscure small masses. There are no dominant masses or suspicious calcifications. No other significant abnormalities are identified. There has been no significant change since the prior study. BI/SCRN MAMM (CAD)W/MIYA BILAT IMPRESSION: Stable bilateral screening mammogram. Yearly follow-up mammogram recommended. (A) ASSESSMENT CATEGORY: BIRADS Category 1: Negative. A letter regarding these results will be sent to the patient by the facility within 30 days. Approximately 10% of breast cancers are not detected by mammography. A normal mammogram should not delay biopsy of a clinically suspicious abnormality. [id number] Electronically Signed: Guerrero Hernandez MD at 10:03 EST ,
== END | disposition home or self-care (01) ==
PROVIDERS: PCP Internal Medicine; Referring Provider Nurse Practitioner Women's Health; Visit Provider Nurse Practitioner Women's Health
DX: Z12.31 Encounter for screening mammogram for malignant neoplasm of breast (principal)
CPT/HCPCS: 77063; 77067

== ENCOUNTER → 2024-09-20 | Outpatient (CLI) | payer OTHER, SELFPAY ==
--- NOTE | 2024-09-20 18:20 | MRI_ITS ---
PROCEDURE: SPINE CERVICAL (ROUTINE) REASON FOR EXAM: Pain. TECHNIQUE: Multiplanar multisequence c was performed ervical spine MRI without intravenous gadolinium-based contrast. CONTRAST: None COMPARISON: 08/26/2024. FINDINGS: Redemonstrated C5-C7 ACDF with associated artifact, limiting evaluation of the surrounding tissues. Partial ankylosis of C3-C4. Relatively mild degenerative changes at the articulation of the dens and the anterior arch of C1. Vertebral body heights are preserved. Straightening of the normal cervical lordosis is similar to prior and likely at least in part related to fusion. Marrow signal is unremarkable. Unremarkable spinal cord. C2-3: Mild facet arthropathy, [id number]-left. No significant spinal canal or foraminal stenosis C3-4: Partial ankylosis across the disc space as above. Mild facet arthropathy on the right. No significant spinal canal or foraminal stenosis. C4-5: Unremarkable C5-6: Operative level with artifact as above. Mild uncovertebral arthropathy. Small marginal osteophytes posteriorly. No significant spinal canal or foraminal stenosis evident. C6-7: Operative level with artifact as above. Mild uncovertebral arthropathy. Tiny marginal osteophytes posteriorly potentially resulting in minimal focal spinal canal stenosis although the appearance could be artifactual and related to distortion from metallic artifact. No significant spinal canal or foraminal stenosis evident. C7-T1: Partially obscured by artifact. No significant spinal canal or foraminal stenosis evident. Mild facet arthropathy with a trace effusion on the right. Paraspinal soft tissues: Grossly unremarkable. MRI/Spine Cervical (Routine) IMPRESSION: 1. C5-C7 ACDF with associated artifact obscuring surrounding tissues. Overall mild spondylosis as detailed without significant spinal canal or foraminal stenosis identified. Consider CT as indicated. 2. Additional description as above. Reading Location: [id number]
== END | disposition home or self-care (01) ==
PROVIDERS: PCP Internal Medicine; Referring Provider Student in an Organized Health Care Education/Training Program; Visit Provider Student in an Organized Health Care Education/Training Program
DX: M47.812 Spondylosis without myelopathy or radiculopathy, cervical region (principal); Z98.1 Arthrodesis status
CPT/HCPCS: 72141

== ENCOUNTER 2024-09-27 17:30 | Outpatient (RCR) | payer OTHER, SELFPAY ==
--- NOTE | 2024-09-23 10:14 | HP.PTEVAL_ITS ---
Patient's Visit Information Visit Information Visit Information: PHILIP CURRY is a 48 year old F referred to Physical Therapy by SHAYNE Maldonado with a diagnosis of Cervical radiculopathy, history of C5-C7 fusion. Date of Evaluation: 09/23/24 Physical Therapist: Chidi San DPT Visit Plan Frequency: 2x /Week Duration: 4 Weeks Plan: 1) start with Manual to R UT, levator scap and cervical erector spinae. 2) US to R UT 3) add in cervcial retraction as tolerated, mid trap strengthening. I gave her cervical retraction in supine and mid row GTB for HEP, light. Subjective Subjective: Pt. is here today for her initial evaluation with diagnosis of cervical radiculopathy and history of cervical fusion. Fusion was completed in November of 2023. C5/C6, and C6/C7 were fused. She reports she was doing well for a period of time, but over the past few months things have worsened. Pt. is now having N/T in both hands and as well as increased migraines. She reports having increased issues with noise and light during migraines. Pt. reports no trigger. Pt. reports no myotomal weakness. Pt. reports having some balance like issues as well. Trouble standing in SLS, no falls noted. Pt. did have an xray which they want to do an MRI/CT, but unable to complete yet. Pain Cervical spine: Pain Intensity (Out of 10): 4 Comment: mostly right sided KHALIL: Pain Intensity (Out of 10): 0 Objective Objective: POSTURE: Pt. has decent posture in stance. Pt. has guarded posture in sitting and standing. Pt. has normal shoulder heights, symmetrical. PALPATION: Pt. has tenderness throughout R side of cervical spine, including SCM, UT, levator scap, and cervical erector spinae. ROM: cervical spine: flexion mod loss increase NW, ext mod loss increase NW, rotation min/mod loss increase NW, Sb mod loss bilat increase NW. Pt. reports stiffness and pain on R side of her posterior cervical spine. Pt. has full B shoulder ROM without much increase in symptoms. NEURO: pt. has normal DTR of BUEs. Pt. does report some decreased sensation at medial aspect of L arm through 5th finger. Normal lateral arm sensation. MMT: Pt. has normal strength throughout BUEs. [employer]nament[employer] Worker Helper strength: L 62#, R 78#. Pt. is R hand dominant. Pt. has a general very guarded posture with limited cervical mobility. Pt. tends to turn body rather than cervical spine. She does sit down a lot at work, computer work. 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 Balance/Special Test Scores Oswestry Neck Score: 15 Goals Goal 1:: LTG: Pt. to be I with HEP for cervical spine strengthening and postural strengthening Goal Time Frame: 4-6 Weeks Goal 2:: STG: Pt. to be able to sleep throughout the night without increase in symptoms. Goal Time Frame: 2-4 Weeks Goal 3:: LTG: Pt. to have decreased pain to 0-2/10 pain at R side of cervical spine with all ADLs and work activities. Goal Time Frame: 4-6 Weeks Goal 4:: LTG: Pt. to be able to complete all work activities with decreased neck pain to 0-2/10 Goal Time Frame: 4-6 Weeks Goal 5:: LTG: Pt. to report decreased N/T in BUEs by 50%. Goal Time Frame: 4-6 Weeks Rehabilitation Potential Physical Therapy Diagnosis: Pt. has signs and symptoms consistent with Cervical radiculopathy, history of C5-C7 fusion. Pt. has marked loss of ROM, pain at R side of cervical spine, limited tolerated to daily activities/work duties. Rehabilitation Potential: Good Anticipated Interventions Patient/Client Instruction: Educate patient on: Condition, Plan of Care, Risk Factors and Benefits of Fitness Program For the Purpose of:: To facilitate caregiver knowledge, To improve self management, To prevent re-injury, To improve ability to perform tasks related to life management and To improve tolerance to ADL's Therapeutic Exercise to Include: Strength training, Endurance training, Balance training, Coordination, Body mechanics, Postural training and Flexibilty training For the Purpose of:: To decrease pain, To increase ROM, To improve nutrient delivery to tissue, To increase oxygenation perfusion, To improve muscle performance and motor function, To improve health of tissue and To decrease soft tissue restriction Manual Therapy Techniques to Include: Functional dry needling, Soft tissue mobilization and Other For the Purpose of:: To decrease pain, To decrease swelling/inflammation, To increase ROM and To improve nutrient delivery to tissue Ultrasound (thermal/non thermal): Yes For the Purpose of:: To decrease pain, To decrease swelling/inflammation and To increase ROM Text: Thank you for the opportunity to evaluate your patient. For Medicare and Medicare HMO plans, please review the plan of care and approve it. It will need to be FAXED BACK to us at [phone] for Medicare purposes. For Medicare only, by signing this I certify the plan of care. Please let me know if there are questions or concerns regarding this plan of care. Physician Signature: Date:
== END 2024-09-27 19:00 | disposition home or self-care (01) ==
LOC: PT 17:30
PROVIDERS: PCP Internal Medicine; Referring Provider Student in an Organized Health Care Education/Training Program; Visit Provider Student in an Organized Health Care Education/Training Program
DX: M54.12 Radiculopathy, cervical region (principal); Z98.1 Arthrodesis status
CPT/HCPCS: 97035; 97161